=== PATIENT | male | born 1965 | race Caucasian/White ===

== ENCOUNTER 2018-02-09 12:44 | Emergency (ER) | payer OTHER ==
[~2018-02-09] VITALS: Ht 177.8 cm; Wt 82.0 kg
[2018-02-09] MEDS ORDERED: IOHEXOL 350 MG/ML 10 ML VIAL (for RAD DIAG) IVCONTRAST ONE (12:45)
[2018-02-09 12:53] VITALS: BP 149/93; PULSE 84; RESP 21; TEMP 98; O2SAT 97
[2018-02-09] MEDS ORDERED: SODIUM CHLOR 0.9% 1000 ML INJ 1,000 ML IV SCH (13:15)
[2018-02-09] MEDS ORDERED: ONDANSETRON ODT 4 MG TAB PO ONE (13:15)
[2018-02-09] MEDS ORDERED: MORPHINE SULFATE 4 MG/ML INJ IV PUSH ONE (13:15)
[2018-02-09] MEDS ORDERED: SODIUM CHLORIDE 0.9% FLUSH 10 ML FLUSH IV FLUSH PRN (13:15)
--- NOTE | 2018-02-09 13:27 | PD ---
HPI Chief Complaint: Abdominal Pain Time Seen by Provider: 12:59 Travel History International Travel<30 days: No Contact w/Intl Traveler<30days: No Traveled to known affect area: No History of Present Illness HPI 52-year-old male presents for evaluation of abdominal pain, nausea, vomiting, diarrhea. He reports that he has had abdominal pain for the past month, seems to be getting worse over the past few days. He has been having nausea and 5-6 episodes of emesis daily for the past 2 weeks and diarrhea for the past 3 days. He believes that his symptoms are secondary to hernias. He reports history of abdominal wall hernias. He has had hernia repair 5-6 times in the past. He called the [place] and was sent here for further evaluation. He reports that he has been in the process of trying to get general surgery follow-up to the [place] for repair of his abdominal wall hernias however this has been delayed for unknown reasons. Reports history of hypertension. Denies fevers, chills, dysuria. No other complaints. [facility] Past Medical History Hypertension: Yes Past Surgical History Abdominal Surgery: Yes (MULTIPLE HERNIA SX) Social History Alcohol Use: Yes (4-5 BEERS DAILY ) Tobacco Use: Yes Substance Use: No Allergies-Medications (Allergen,Severity, Reaction): Coded Allergies: No Known Allergies (Unverified , 02/09/18) Reported Meds & Prescriptions Reported Meds & Active Scripts Active Zofran (Ondansetron HCl) 4 Mg Tab 4 Mg PO Q6HR PRN Review of Systems Except as stated in HPI: all other systems reviewed are Neg Physical Exam Narrative GENERAL: Well-developed well-nourished male in no acute distress SKIN: Warm and dry. HEAD: Atraumatic. Normocephalic. EYES: Pupils equal and round. No scleral icterus. No injection or drainage. ENT: No nasal bleeding or discharge. Mucous membranes pink and moist. NECK: Trachea midline. No JVD. CARDIOVASCULAR: Regular rate and rhythm. No murmur appreciated. RESPIRATORY: No accessory muscle use. Clear to auscultation. Breath sounds equal bilaterally. GASTROINTESTINAL: Large abdominal wall scar noted. There is a palpable abdominal wall hernia in the epigastrium. There is a palpable abdominal wall hernia lateral to the umbilicus on the left side. Both of these are reducible. Some tenderness to palpation periumbilical region. No guarding. MUSCULOSKELETAL: No obvious deformities. No clubbing. No cyanosis. No edema. NEUROLOGICAL: Awake and alert. No obvious cranial nerve deficits. Motor grossly within normal limits. Normal speech. Data Data Last Documented VS Vital Signs Date Time Temp Pulse Resp B/P (MAP) Pulse Ox O2 Delivery O2 Flow Rate FiO2 02/09/18 12:53 98.0 84 21 149/93 (111) 97 Orders Orders Complete Blood Count With Diff (02/09/18 13:15) Comprehensive Metabolic Panel (02/09/18 13:15) Lipase (02/09/18 13:15) Urinalysis - C+S If Indicated (02/09/18 13:15) Ct Abd/Pel W Iv Contrast(Rout) (02/09/18 13:15) Iv Access Insert/Monitor (02/09/18 13:15) Ecg Monitoring (02/09/18 13:15) Oximetry (02/09/18 13:15) Sodium Chloride 0.9% Flush (Ns Flush) (02/09/18 13:15) Morphine Inj (Morphine Inj) (02/09/18 13:15) Sodium Chlor 0.9% 1000 Ml Inj (Ns 1000 M (02/09/18 13:15) Magnesium (Mg) (02/09/18 13:15) Ondansetron Odt (Zofran Odt) (02/09/18 13:15) Prothrombin Time / Inr (Pt) (02/09/18 13:15) Act Partial Throm Time (Ptt) (02/09/18 13:15) Oral Contrast - Adult (02/09/18 13:20) Diatrizoate Liq ( Gastroview Liq) (02/09/18 13:33) Iohexol 350 Inj (Omnipaque 350 Inj) (02/09/18 12:45) Labs Laboratory Tests Test 02/09/18 13:15 02/09/18 15:32 White Blood Count 9.5 TH/MM3 Red Blood Count 4.71 MIL/MM3 Hemoglobin 16.4 GM/DL Hematocrit 46.3 % Mean Corpuscular Volume 98.4 FL Mean Corpuscular Hemoglobin 34.9 PG Mean Corpuscular Hemoglobin Concent 35.5 % Red Cell Distribution Width 13.8 % Platelet Count 327 TH/MM3 Mean Platelet Volume 10.1 FL Neutrophils (%) (Auto) 45.1 % Lymphocytes (%) (Auto) 43.4 % Monocytes (%) (Auto) 9.5 % Eosinophils (%) (Auto) 0.8 % Basophils (%) (Auto) 1.2 % Neutrophils # (Auto) 4.3 TH/MM3 Lymphocytes # (Auto) 4.1 TH/MM3 Monocytes # (Auto) 0.9 TH/MM3 Eosinophils # (Auto) 0.1 TH/MM3 Basophils # (Auto) 0.1 TH/MM3 CBC Comment DIFF FINAL Differential Comment Prothrombin Time 11.5 SEC Prothromb Time International Ratio 1.1 RATIO Activated Partial Thromboplast Time 25.0 SEC Blood Urea Nitrogen 17 MG/DL Creatinine 0.98 MG/DL Random Glucose 130 MG/DL Total Protein 7.4 GM/DL Albumin 2.9 GM/DL Calcium Level 7.9 MG/DL Magnesium Level 2.0 MG/DL Alkaline Phosphatase 103 U/L Aspartate Amino Transf (AST/SGOT) 166 U/L Alanine Aminotransferase (ALT/SGPT) 127 U/L Total Bilirubin 0.5 MG/DL Sodium Level 139 MEQ/L Potassium Level 4.3 MEQ/L Chloride Level 107 MEQ/L Carbon Dioxide Level 24.6 MEQ/L Anion Gap 7 MEQ/L Estimat Glomerular Filtration Rate 80 ML/MIN Lipase 165 U/L MDM Medical Decision Making Medical Screen Exam Complete: Yes Emergency Medical Condition: Yes Medical Record Reviewed: Yes Differential Diagnosis Reducible hernia, strangulated hernia, incarcerated hernia, bowel obstruction, gastroenteritis, colitis, diverticulitis Narrative Course The patient was placed on ECG monitoring pulse oximetry. Plan is for lab work, urinalysis, CT abdomen pelvis with IV and oral contrast. He will be given morphine and Zofran, IV fluids. The patient was able to tolerate his oral contrast fluid with no emesis. CBC is unremarkable. CMP is reassuring. His calcium 7.9, he has mildly elevated AST and ALT. He reports that he is a daily drinker. I recommend that he follow -up with his primary care physician for hepatitis testing. CONCLUSION: Numerous midline hernias are identified as described above including one small bowel containing hernia and one transverse colon containing hernia. CT abdomen pelvis reveals 5 midline hernias but no evidence of strangulation or incarceration. On examination the palpable hernias are reducible. I provided the patient a copy of his CT report. I recommended that he follow-up with a general surgeon. He reports that [facility] is [facility]. He will be given the name of the surgeon who is on-call today if he would like to follow-up with them. I discussed signs and symptoms that would warrant returning to the emergency room. He is stable for discharge. Diagnosis Primary Impression: Recurrent abdominal hernia Additional Impressions: Abdominal hernia Abdominal wall hernia Elevated liver enzymes Referrals: Terry Pacheco MD General Surgeon Additional Instructions: Follow-up with a general surgeon such as Dr. Pacheco, call to make an appointment. Avoid anything that increases pressure and strain in her abdomen such as straining during a bowel movement, heavy lifting. Zofran for nausea. Return for any acutely new or worsening symptoms such as severe intractable abdominal pain, severe intractable nausea and vomiting, fevers. Med/Other Pt SpecificInfo: Prescription(s) given Scripts Ondansetron (Zofran) 4 Mg Tab 4 MG PO Q6HR Y for NAUSEA OR VOMITING, #20 TAB 0 Refills Prov: Angeline Chamorro MD 02/09/18 Disposition: 01 DISCHARGE HOME Condition: Stable James Dempsey February 09, 2018 13:27
[2018-02-09] MEDS ORDERED: DIATRIZOATE MEGLUM/DIATRIZOATE SOD 9 ML CUP ONE (13:33)
[2018-02-09 13:48] LABS: AUTOMATED NEUTROPHIL # 4.3 TH/MM3 (1.8-7.7); BASOPHIL # 0.1 TH/MM3 (0-0.2); BASOPHIL % 1.2 % (0.0-2.0); EOSINOPHIL # 0.1 TH/MM3 (0-0.4); EOSINOPHIL % 0.8 % (0.0-4.0); HEMATOCRIT 46.3 % (39.0-51.0); HEMOGLOBIN 16.4 GM/DL (13.0-17.0); LYMPH % 43.4 % (9.0-44.0); LYMPHOCYTE # 4.1 TH/MM3 (1.0-4.8); MEAN CELL VOLUME 98.4 FL (80.0-100.0); MEAN CORPUSCULAR HEMOGLOBIN 34.9 PG (27.0-34.0); MEAN CORPUSCULAR HGB CONC 35.5 % (32.0-36.0); MEAN PLATELET VOLUME 10.1 FL (7.0-11.0); MONO % 9.5 % (0.0-8.0); MONOCYTE # 0.9 TH/MM3 (0-0.9); NEUT % 45.1 % (16.0-70.0); PLATELET COUNT 327 TH/MM3 (150-450); RED BLOOD COUNT 4.71 MIL/MM3 (4.50-5.90); RED CELL DISTRIBUTION WIDTH 13.8 % (11.6-17.2); WHITE BLOOD COUNT 9.5 TH/MM3 (4.0-11.0)
[2018-02-09 14:00] LABS: PROTHROMBIN TIME - PATIENT 11.5 SEC (9.8-11.6)
[2018-02-09 14:03] LABS: INTERNATIONAL NORMALIZED RATIO 1.1 RATIO
[2018-02-09 14:13] LABS: ALKALINE PHOSPHATASE 103 U/L (45-117); TOTAL BILIRUBIN ADULT 0.5 MG/DL (0.2-1.0); TOTAL PROTEIN 7.4 GM/DL (6.4-8.2)
[2018-02-09 14:16] LABS: ALBUMIN 2.9 GM/DL (3.4-5.0); ALT (GPT) 127 U/L (12-78); AST (GOT) 166 U/L (15-37); BICARBONATE 24.6 MEQ/L (21.0-32.0); BLOOD UREA NITROGEN 17 MG/DL (7-18); CALCIUM 7.9 MG/DL (8.5-10.1); CHLORIDE 107 MEQ/L (98-107); CREATININE 0.98 MG/DL (0.60-1.30); GLOMERULAR FILTRATION RATE 80 ML/MIN (>89); GLUCOSE,RANDOM 130 MG/DL (74-106); SODIUM (NA) 139 MEQ/L (136-145)
--- NOTE | 2018-02-09 15:26 | RADRPT ---
EXAM DATE/TIME: 02/09/2018 14:54 [facility] COMPARISON: No previous studies available for comparison. INDICATIONS : Right sided abdominal hernia with vomiting. IV CONTRAST: 97 cc Omnipaque 350 (iohexol) IV ORAL CONTRAST: Prescribed oral contrast ingested. RADIATION DOSE: 6.54 CTDIvol (mGy) MEDICAL HISTORY : Hypertension. hernia SURGICAL HISTORY : multiple hernia surgeries ENCOUNTER: Initial ACUITY: 2 weeks PAIN SCALE: 9/10 LOCATION: Right mid abdomen TECHNIQUE: Volumetric scanning of the abdomen and pelvis was performed. Using automated exposure control and ad justment of the mA and/or kV according to patient size, radiation dose was kept as low as reasonably achievable to obtain optimal diagnostic quality images. DICOM format image data is available electro nically for review and comparison. FINDINGS: The lung bases are clear. Posterior brody and transpedicular screw fixation at L4-5 identified. Co ronary artery calcification is present. Atherosclerotic calcification of the aorta and iliac vessels are noted. Urinary bladder unremarkable. The prostate is prominent measuring 4.9 x 5.2 cm in AP trans verse dimension. There is severe diverticulosis of the sigmoid colon and descending colon without nestor dence of acute diverticulitis. Transverse colonic diverticulosis is also noted. There is a fat contai carine supraumbilical ventral hernia anterior to the greater curvature of the stomach measuring 2 cm in transverse dimension, hernia sac measuring 4.9 x 2.1 cm in transverse and AP dimension. There is als o a midline ventral hernia containing fat just inferior to this measuring 2.8 cm in transverse dimens ion at the abdominal wall in the hernia sac measuring 5.3 x 2.9 cm in transverse and AP dimension. Th ere is a hernia at the level of the umbilicus measuring 3.2 cm in transverse dimension. The hernia sa c contains small bowel and small bowel mesentery measuring 9.9 x 3.8 cm in transverse and AP dimensio n on image 53. A supraumbilical ventral hernia defect measuring 2 cm in transverse dimension and ryan ia sac 4.9 cm in transverse dimension, containing fat. Just above this is a midline ventral hernia co ntaining a loop of mid transverse colon, the abdominal wall defect measures 5.2 cm across. Appendix n ormal. Evidence of previous surgery to the terminal ileum. No adenopathy or aneurysm. CONCLUSION: Numerous midline hernias are identified as described above including one small bowel containing herni a and one transverse colon containing hernia. Demarco Mann MD on February 09, 2018 at 15:20 Board Certified Radiologist. This report was verified electronically.
[2018-02-09] MEDS ORDERED: ZOFR4TAB PO (15:38)
[2018-02-09 15:50] LABS: BILIRUBIN, URINE NEG (NEG); BLOOD, URINE NEG (NEG); GLUCOSE,URINE NEG (NEG); KETONE, URINE NEG (NEG); NITRITE,URINE NEG (NEG); URINE COLOR YELLOW (YELLW/STRAW); URINE LEUKOCYTE ESTERASE NEG (NEG)
--- NOTE | 2018-02-11 16:22 | PD ---
Physical Exam Narrative I, Dr. Chamorro, have reviewed the advance practice practitioner's documentation and am in agreement, met with the patient face to face, made the diagnosis, and the medical decision making was done by me. *My assessment and Findings: Patient presents to the emergency department complaining of abdominal pain 1 month, nausea and vomiting 2 weeks, and diarrhea. States that he has been attempting to get his hernias repaired [facility] the [facility], but for unknown reasons is running into difficulty. Presented to the emergency department afebrile, slightly hypertensive at 149/93 with remaining vital signs stable. On exam he has multiple reducible hernias. Workup showed increased LFTs and CT scan was positive for diverticulosis without evidence of diverticulitis and multiple hernias. He was given fluids, Zofran, and morphine while in the emergency department. He was able to tolerate p.o. and was advised to follow-up with his surgeon at the [facility], as well as given return ER precautions. He was also discharged with Zofran as needed. Data Data Last Documented VS Vital Signs Date Time Temp Pulse Resp B/P (MAP) Pulse Ox O2 Delivery O2 Flow Rate FiO2 02/09/18 14:25 Room Air 02/09/18 12:53 98.0 84 21 149/93 (111) 97 Orders Orders Complete Blood Count With Diff (02/09/18 13:15) Comprehensive Metabolic Panel (02/09/18 13:15) Lipase (02/09/18 13:15) Urinalysis - C+S If Indicated (02/09/18 13:15) Ct Abd/Pel W Iv Contrast(Rout) (02/09/18 13:15) Iv Access Insert/Monitor (02/09/18 13:15) Ecg Monitoring (02/09/18 13:15) Oximetry (02/09/18 13:15) Sodium Chloride 0.9% Flush (Ns Flush) (02/09/18 13:15) Morphine Inj (Morphine Inj) (02/09/18 13:15) Sodium Chlor 0.9% 1000 Ml Inj (Ns 1000 M (02/09/18 13:15) Magnesium (Mg) (02/09/18 13:15) Ondansetron Odt (Zofran Odt) (02/09/18 13:15) Prothrombin Time / Inr (Pt) (02/09/18 13:15) Act Partial Throm Time (Ptt) (02/09/18 13:15) Oral Contrast - Adult (02/09/18 13:20) Diatrizoate Liq ( Gastroluca Liq) (02/09/18 13:33) Iohexol 350 Inj (Omnipaque 350 Inj) (02/09/18 12:45) Ed Discharge Order (02/09/18 15:54) Labs Laboratory Tests Test 02/09/18 13:15 02/09/18 15:32 White Blood Count 9.5 TH/MM3 Red Blood Count 4.71 MIL/MM3 Hemoglobin 16.4 GM/DL Hematocrit 46.3 % Mean Corpuscular Volume 98.4 FL Mean Corpuscular Hemoglobin 34.9 PG Mean Corpuscular Hemoglobin Concent 35.5 % Red Cell Distribution Width 13.8 % Platelet Count 327 TH/MM3 Mean Platelet Volume 10.1 FL Neutrophils (%) (Auto) 45.1 % Lymphocytes (%) (Auto) 43.4 % Monocytes (%) (Auto) 9.5 % Eosinophils (%) (Auto) 0.8 % Basophils (%) (Auto) 1.2 % Neutrophils # (Auto) 4.3 TH/MM3 Lymphocytes # (Auto) 4.1 TH/MM3 Monocytes # (Auto) 0.9 TH/MM3 Eosinophils # (Auto) 0.1 TH/MM3 Basophils # (Auto) 0.1 TH/MM3 CBC Comment DIFF FINAL Differential Comment Prothrombin Time 11.5 SEC Prothromb Time International Ratio 1.1 RATIO Activated Partial Thromboplast Time 25.0 SEC Blood Urea Nitrogen 17 MG/DL Creatinine 0.98 MG/DL Random Glucose 130 MG/DL Total Protein 7.4 GM/DL Albumin 2.9 GM/DL Calcium Level 7.9 MG/DL Magnesium Level 2.0 MG/DL Alkaline Phosphatase 103 U/L Aspartate Amino Transf (AST/SGOT) 166 U/L Alanine Aminotransferase (ALT/SGPT) 127 U/L Total Bilirubin 0.5 MG/DL Sodium Level 139 MEQ/L Potassium Level 4.3 MEQ/L Chloride Level 107 MEQ/L Carbon Dioxide Level 24.6 MEQ/L Anion Gap 7 MEQ/L Estimat Glomerular Filtration Rate 80 ML/MIN Lipase 165 U/L Urine Color YELLOW Urine Turbidity CLEAR Urine pH 6.0 Urine Specific [place] 1.049 Urine Protein NEG mg/dL Urine Glucose (UA) NEG mg/dL Urine Ketones NEG mg/dL Urine Occult Blood NEG Urine Nitrite NEG Urine Bilirubin NEG Urine Urobilinogen LESS THAN 2.0 MG/DL Urine Leukocyte Esterase NEG Urine RBC 1 /hpf Urine WBC 5 /hpf Microscopic Urinalysis Comment CULT NOT INDICATED MDM Supervised Visit with [facility]IMUS: Yes Diagnosis Primary Impression: Elevated liver enzymes Additional Impressions: Abdominal wall hernia Abdominal hernia Qualified Codes: K45.8 - Other specified abdominal hernia without obstruction or gangrene Referrals: Terry Pacheco MD General Surgeon Patient Instructions: General Instructions, Ondansetron (By mouth, Into the mouth) Departure Forms: Tests/Procedures Additional Instruction: Follow-up with a general surgeon such as Dr. Pacheco, call to make an appointment. Avoid anything that increases pressure and strain in her abdomen such as straining during a bowel movement, heavy lifting. Zofran for nausea. Return for any acutely new or worsening symptoms such as severe intractable abdominal pain, severe intractable nausea and vomiting, fevers. Scripts Ondansetron (Zofran) 4 Mg Tab 4 MG PO Q6HR Y for NAUSEA OR VOMITING, #20 TAB 0 Refills Prov: Angeline Chamorro MD 02/09/18 Disposition: DISCHARGE HOME Condition: Stable Angeline Chamorro MD February 11, 2018 16:22
== END 2018-02-09 16:48 | disposition home or self-care (01) ==
LOC: NEPE 12:44
DX: K45.8 Other specified abdominal hernia without obstruction or gangrene (principal); K43.9 Ventral hernia without obstruction or gangrene; R74.8 Abnormal levels of other serum enzymes; I10 Essential (primary) hypertension; F10.20 Alcohol dependence, uncomplicated; Z72.0 Tobacco use
CPT/HCPCS: 74177; 80053; 81001; 83690; 83735; 85025; 85610; 85730; 96361; 96374; 99284; J2270; J7030; Q9963; Q9967

== ENCOUNTER 2018-05-30 23:36 | Inpatient (IN) ==
[2018-05-31] MEDS ORDERED: Sod Chloride 0.9% Inj 1,000 ML IV.SIG ONE ×2 (00:43→01:35)
[2018-05-31] MEDS ORDERED: Morphine Inj 4 MG/ML Vial IV.PUSH ONE (00:43)
--- NOTE | 2018-05-31 01:19 | XR ---
EXAM DATE: 05/31/2018 12:57 AM EDT AGE/SEX: 52 years / Male INDICATIONS: Cough. CLINICAL DATA: This is the patient's initial encounter. Patient reports that signs and symptoms have been present for 1 day and indicates a pain score of 8/10. MEDICAL/SURGICAL HISTORY: . Myocardial infarction. . Hernia repair. Stents. COMPARISON: No prior exams available for comparison. FINDINGS: Portable AP view of the chest demonstrates a normal-sized cardiac silhouette. No effusion, consolidat ion, or pneumothorax is identified. The bones and soft tissues demonstrate no acute finding. EKG line s overlie the patient. CONCLUSION: No acute cardiopulmonary abnormality is identified. Electronically signed by: Jm Powell MD 05/31/2018 1:18 AM EDT
[2018-05-31 01:28] LABS: Baso # (Auto) 0.1 th/mm3 (0.0-0.2); Eos % (Auto) 0.3 % (0.0-4.0); Hematocrit 44.2 % (39.0-51.0); Hemoglobin 15.8 gm/dL (13.0-17.0); Lymph % (Auto) 20.9 % (9.0-44.0); Mean Corpuscular HGB Conc 35.8 % (32.0-36.0); Mean Corpuscular Volume 103.3 fL (80.0-100.0); Mean Platelet Volume 10.6 fL (7.0-11.0); Mono # (Auto) 1.1 th/mm3 (0.0-0.9); Mono % (Auto) 7.4 % (0.0-8.0); Neut # (Auto) 10.2 th/mm3 (1.8-7.7); Neut % (Auto) 70.4 % (16.0-70.0); Platelet Count 373 th/mm3 (150-450); Red Blood Count 4.28 mil/mm3 (4.50-5.90); White Blood Count 14.6 th/mm3 (4.0-11.0)
[2018-05-31 01:42] LABS: Activated Partial Thrombo Time 25.9 sec (24.3-30.1); INR 1.1 Ratio; Prothrombin Time 11.5 sec (9.8-11.6)
[2018-05-31 01:52] LABS: Alanine Aminotransferase 109 U/L (12-78); Albumin 2.6 g/dL (3.4-5.0); Alkaline Phosphatase 219 U/L (45-117); Anion Gap 22 meq/L (5-15); Blood Urea Nitrogen 19 mg/dL (7-18); Calcium 7.6 mg/dL (8.5-10.1); Carbon Dioxide 19.5 meq/L (21.0-32.0); Chloride 93 meq/L (98-107); Creatine Kinase 208 U/L (39-308); Glomerular Filtration Rate 70 mL/min (>89); Glucose,Random 198 mg/dL (74-106); Lipase 821 U/L (73-393); Potassium 4.1 meq/L (3.5-5.1); Total Protein 8.4 g/dL (6.4-8.2); Troponin I 0.06 ng/mL (0.02-0.05)
[2018-05-31 02:01] LABS: Sodium 134 meq/L (136-145)
[2018-05-31 02:02] LABS: Aspartate Aminotransferase 125 U/L (15-37)
[2018-05-31 02:07] LABS: Bilirubin,Urine Negative (Negative); Clarity,Urine Hazy (Clear); Color,Urine Amber (Yellw/Straw); Glucose,Urine (UA) 50 mg/dL (Negative); Hyaline Casts,Urine 45 /lpf (0-3); Leukocyte Esterase,Urine Negative (Negative); Mucus,Urine Many /lpf (Occasional); Nitrite,Urine Negative (Negative); Specific Gravity,Urine 1.032 (1.002-1.035); Squamous Epithelial Cell,Urine <1 /hpf (0-5); Urobilinogen,Urine 4 or Greater mg/dL (Less than 2)
--- NOTE | 2018-05-31 04:22 | ED ---
HPI General Chief complaint: Abdominal Pain Stated complaint: Medical complaint Time Seen by Provider: 05/30/18 23:58 Limitations: no limitations History of Present Illness HPI narrative: The patient is a 52 year old male who presents to the [facility] emergency department with a history of nausea, vomiting that he reports is been intractable for the last 48 hours. He reports that he has not been able to keep anything down. He reports a recent history of having over the last few months abdominal pain that he thought was related to his ventral abdominal hernia. He reports that he did follow-up with the surgeon, Dr. Grajeda, however as a pain was at times located in the right upper quadrant, the surgeon requested that he obtain an ultrasound of the gallbladder. The patient reports that he has to obtain the ultrasound of the gallbladder through the [facility] and has not been able to do it yet. His next follow -up appointment with the surgeon is in 6 weeks. The patient reports intermittently having diarrhea for the last few months, however his last episode of diarrhea was yesterday. He reports that he had diarrhea 4-5 times yesterday. He has not moved his bowels today. The patient reports that he has had at least 15 episodes of vomiting today. He reports that he has had decreased urine output with darkening of the urine. The patient reports that the abdominal pain is in the right upper quadrant of the abdomen today. He reports that the pain comes and goes. He reports that the pain is a cramping sensation. He denies any alleviating or aggravating factors. On review of systems otherwise, the patient denies having any known recent fevers, cough, congestion, neck pain, chest pain, shortness of breath, dysuria, urinary urgency , or neurologic symptoms. The patient reports having generalized muscle cramping. Related Data Home Medications Medication Instructions Recorded Confirmed ondansetron [Zofran ODT] 4 mg PO Q6-8H PRN 05/30/18 05/30/18 Allergies Allergy/AdvReac Type Severity Reaction Status Date / Time No Known Allergies Allergy Unverified 02/09/18 13:12 Review of Systems ROS: all other systems reviewed are negative [facility] Medical History Medical History Myocardial infarction (Acute) Social History Social History Substance History: Active Abuse Smoking Status: Current every day smoker Tobacco Type: Cigarettes How Often Do You Have a Drink Containing Alcohol: 2 to 3 times a week Recent Travel in [facility] within the Last 8 Weeks: No Recent Out of Country Travel within the Last 8 Weeks: No Substance Abuse Detail Marijuana: Substance Use Status: Active Immunization History Tetanus Immunization: <5 Years Hx Influenza Vaccine This Season: No Exam Narrative Exam Narrative: General: The patient is a well-developed well-nourished male, uncomfortable appearing on examination related to nausea and abdominal pain, otherwise in no acute distress. Head and Neck exam: Head is normocephalic atraumatic. Eyes: EOMI, pupils are equal round and reactive to light. Nose: Midline septum with pink mucous membranes Mouth: Dentition unremarkable. Moist mucus membranes. Posterior oropharynx is not erythematous. No tonsillar hypertrophy. Uvula midline. Airway patent. Neck: No palpable lymphadenopathy. No nuchal rigidity. No thyromegaly. Cardiovascular: Regular rate and rhythm without murmurs, gallops, or rubs. No pulse deficit to the extremities on simultaneous auscultation and palpation of his radial artery. Lungs: Clear to auscultation bilaterally. No wheezes, rhonchi, or rales. Abdomen: Soft, with tenderness on palpation of the right upper quadrant and midepigastric area, palpable ventral abdominal hernia noted on examination. This is palpably reducible. No guarding, rebound, or rigidity. Normal bowel sounds are audible. Negative Pearson's sign. Extremities: No clubbing, cyanosis, or edema. 2+ pulses in all 4 extremities. Back: No spinous process tenderness to palpation. No costovertebral angle tenderness to palpation. Neurologic Exam: Grossly nonfocal. Skin Exam: No rash noted. Intact skin that is warm and dry. Course Reevaluation(s) Reevaluation #1: The patient on reevaluation and reported feeling improved regarding his lightheaded sensation. The patient continues to have nausea and midepigastric right upper quadrant pain. Consultations Consultation #1: The patient's case including history, pertinent physical examination findings, and laboratory studies were discussed with Dr. Booth. It was agreed that the patient would be admitted to the hospitalist service. Initial Documented Vital Signs Temperature 97.5 F L 05/30/18 23:38 Pulse Rate 123 H 05/30/18 23:38 Respiratory Rate 16 05/30/18 23:38 Blood Pressure 170/107 H 05/30/18 23:38 Pulse Oximetry 97 05/30/18 23:38 Last Documented Vital Signs Temperature 97.5 F L 05/30/18 23:38 Pulse Rate 88 05/31/18 03:36 Respiratory Rate 18 05/31/18 03:36 Blood Pressure 161/83 H 05/31/18 03:36 Pulse Oximetry 96 05/31/18 03:36 Medical Decision Making MDM Narrative Medical decision making narrative: During the course of the patient's emergency department visit, the patient's history, examination, and differential diagnosis were reviewed with the patient. The patient was placed on a residential monitor with oximetry and frequent blood pressure monitoring. The patient had IV access obtained and blood work sent for analysis. The patient was initially provided normal saline IV fluids, Zofran 4 mg IV for nausea, morphine 4 mg IV for pain. The patient's diagnostic evaluation is remarkable for leukocytosis at 14.6 with a left shift-neutrophils 70.4, platelets within normal limits, hemoglobin is 15.8, PT PTT unremarkable, chemistry is remarkable for a total bilirubin of 1.5 , sodium is 134, glucose 198, lipase elevated at 821, lactic acid 2.1, chloride 93, CO2 19.5 with an anion gap of 22, AST 125, ALT 109. The patient's chest x- ray showed no acute cardiopulmonary disease, CT scan of the abdomen and pelvis was remarkable for inflammation around the pancreas consistent with pancreatitis. The patient's results were discussed with the patient, including the plan of care. I explained that further testing and/ or monitoring is indicated based on the patient's history, examination, and/ or laboratory findings. Therefore, I recommended admission for additional evaluation. The patient expressed understanding and was agreeable with this plan. The patient was admitted to the hospital in stable condition and sent to a bed under the care of the [facility] service. The patient's results were discussed with the patient, including the plan of care. I explained that further testing and/ or monitoring is indicated based on the patient's history, examination, and/ or laboratory findings. Therefore, I recommended admission for additional evaluation. The patient expressed understanding and was agreeable with this plan. The patient was admitted to the hospital in stable condition and sent to a bed under the care of [facility] service. Medical Screen Exam Complete: Yes Emergency Medical Condition: Yes Differential Diagnosis Differential Diagnosis: Hernia incarceration, versus other bowel obstruction, versus colitis, versus diverticulitis, versus biliary colic, versus acute cholecystitis, versus pancreatitis, versus dehydration, versus electrolyte derangements Medical Records Medical records reviewed: Yes I reviewed the patient's medical records. Lab Data Lab results reviewed: Yes I reviewed the patient's lab results. Result diagrams: 05/31/18 00:50 05/31/18 00:50 Lab Results 05/31/18 05/31/18 05/31/18 Range/Units 00:50 00:50 00:50 WBC 14.6 H (4.0-11.0) th/mm3 RBC 4.28 L (4.50-5.90) mil/mm3 Hgb 15.8 (13.0-17.0) gm/dL Hct 44.2 (39.0-51.0) % MCV 103.3 H (80.0-100.0) fL MCH 37.0 H (27.0-34.0) pg MCHC 35.8 (32.0-36.0) % RDW 15.0 (11.6-17.2) % Plt Count 373 (150-450) th/mm3 MPV 10.6 (7.0-11.0) fL Prelim Diff (Auto) Slide review pending Neut % (Auto) 70.4 H (16.0-70.0) % Lymph % (Auto) 20.9 (9.0-44.0) % Tompkins % (Auto) 7.4 (0.0-8.0) % Eos % (Auto) 0.3 (0.0-4.0) % Baso % (Auto) 1.0 (0.0-2.0) % Neut # (Auto) 10.2 H (1.8-7.7) th/mm3 Lymph # (Auto) 3.0 (1.0-4.8) th/mm3 Tompkins # (Auto) 1.1 H (0.0-0.9) th/mm3 Eos # (Auto) 0.0 (0.0-0.4) th/mm3 Baso # (Auto) 0.1 (0.0-0.2) th/mm3 WBC Differential . Diff Scan Auto diff confirmed Differential Comment . PT 11.5 (9.8-11.6) sec INR 1.1 Ratio APTT 25.9 (24.3-30.1) sec Sodium 134 L (136-145) meq/L Potassium 4.1 (3.5-5.1) meq/L Chloride 93 L (98-107) meq/L Carbon Dioxide 19.5 L (21.0-32.0) meq/L Anion Gap 22 H (5-15) meq/L BUN 19 H (7-18) mg/dL Creatinine 1.10 (0.60-1.30) mg/dL Estimated GFR 70 L (>89) mL/min Random Glucose 198 H (74-106) mg/dL Lactic Acid (0.4-2.0) mmol/L Calcium 7.6 L (8.5-10.1) mg/dL Total Bilirubin 1.5 H (0.2-1.0) mg/dL AST 125 H (15-37) U/L ALT 109 H (12-78) U/L Alkaline Phosphatase 219 H (45-117) U/L Total Creatine Kinase 208 (39-308) U/L CK-MB (CK-2) 1.0 (0.5-3.6) ng/mL Troponin I 0.06 H (0.02-0.05) ng/mL Total Protein 8.4 H (6.4-8.2) g/dL Albumin 2.6 L (3.4-5.0) g/dL Lipase 821 H (73-393) U/L Urine Color (Yellw/Straw) Urine Clarity (Clear) Urine pH (5.0-8.5) Ur Specific Garrett (1.002-1.035) Urine Protein (Neg-Trace) mg/dL Urine Glucose (UA) (Negative) mg/dL Urine Ketones (Negative) mg/dL Urine Occult Blood (Negative) Urine Nitrate (Negative) Urine Bilirubin (Negative) Urine Urobilinogen (Less than 2) mg/dL Ur Leukocyte Esterase (Negative) Urine RBC (0-3) /hpf Urine WBC (0-5) /hpf Ur Squamous Epith Cells (0-5) /hpf Hyaline Casts (0-3) /lpf Granular Casts (None) /lpf Urine Mucus (Occasional) /lpf Micro UA Comment Ur Microscopic Review Urine Culture Comments 05/31/18 05/31/18 Range/Units 00:50 01:40 WBC (4.0-11.0) th/mm3 RBC (4.50-5.90) mil/mm3 Hgb (13.0-17.0) gm/dL Hct (39.0-51.0) % MCV (80.0-100.0) fL MCH (27.0-34.0) pg MCHC (32.0-36.0) % RDW (11.6-17.2) % Plt Count (150-450) th/mm3 MPV (7.0-11.0) fL Prelim Diff (Auto) Neut % (Auto) (16.0-70.0) % Lymph % (Auto) (9.0-44.0) % Tompkins % (Auto) (0.0-8.0) % Eos % (Auto) (0.0-4.0) % Baso % (Auto) (0.0-2.0) % Neut # (Auto) (1.8-7.7) th/mm3 Lymph # (Auto) (1.0-4.8) th/mm3 Tompkins # (Auto) (0.0-0.9) th/mm3 Eos # (Auto) (0.0-0.4) th/mm3 Baso # (Auto) (0.0-0.2) th/mm3 WBC Differential Diff Scan Differential Comment PT (9.8-11.6) sec INR Ratio APTT (24.3-30.1) sec Sodium (136-145) meq/L Potassium (3.5-5.1) meq/L Chloride (98-107) meq/L Carbon Dioxide (21.0-32.0) meq/L Anion Gap (5-15) meq/L BUN (7-18) mg/dL Creatinine (0.60-1.30) mg/dL Estimated GFR (>89) mL/min Random Glucose (74-106) mg/dL Lactic Acid 2.1 H (0.4-2.0) mmol/L Calcium (8.5-10.1) mg/dL Total Bilirubin (0.2-1.0) mg/dL AST (15-37) U/L ALT (12-78) U/L Alkaline Phosphatase (45-117) U/L Total Creatine Kinase (39-308) U/L CK-MB (CK-2) (0.5-3.6) ng/mL Troponin I (0.02-0.05) ng/mL Total Protein (6.4-8.2) g/dL Albumin (3.4-5.0) g/dL Lipase (73-393) U/L Urine Color Dory (Yellw/Straw) Urine Clarity Hazy H (Clear) Urine pH 5.0 (5.0-8.5) Ur Specific Garrett 1.032 (1.002-1.035) Urine Protein 30 H (Neg-Trace) mg/dL Urine Glucose (UA) 50 (Negative) mg/dL Urine Ketones Trace H (Negative) mg/dL Urine Occult Blood Negative (Negative) Urine Nitrate Negative (Negative) Urine Bilirubin Negative (Negative) Urine Urobilinogen 4 or greater (Less than 2) mg/dL Ur Leukocyte Esterase Negative (Negative) Urine RBC Less than 1 (0-3) /hpf Urine WBC 3 (0-5) /hpf Ur Squamous Epith Cells <1 (0-5) /hpf Hyaline Casts 45 (0-3) /lpf Granular Casts 8 (None) /lpf Urine Mucus Many H (Occasional) /lpf Micro UA Comment Culture not ind Ur Microscopic Review Not Reportable Urine Culture Comments Culture not ind Imaging Data Radiologist's impression: Chest X-Ray 05/31/18 00:43 CONCLUSION: No acute cardiopulmonary abnormality is identified. Abdomen/Pelvis CT 05/31/18 04:37 CONCLUSION: 1. Mild peripancreatic and retroperitoneal edema suggesting acute pancreatitis. No pancreatitis associated complications are present. 2. There are at least 3 anterior abdominal wall hernias, as above, containing fat, mid transverse colon, and small bowel. There are no findings to indicate that these hernias are causing obstruction. These hernias appear similar to the prior examination. 3. The liver demonstrates features suggesting steatosis and possible cirrhosis. 4. Stable but nonspecific 1.7 cm left adrenal gland mass. It does not meet criteria for an adenoma on this study or on the prior examination. Suggest attention to this at follow-up imaging and consider elective adrenal protocol CT with and without intravenous contrast. 5. 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 Discharge Plan Discharge Disposition Patient Disposition: 30 Still Patient Discharge Details Diagnosis: Acute pancreatitis, Intractable nausea and vomiting, Acute dehydration Physicians Team ED Provider: Francoise Toribio Primary Care Provider: [facility] Attending Provider: Danny Moses Discharge Interventions Interventions: Vital Signs Last Done: 05/31/18 03:36 Status ED Status: Admitted Observation Patient
[2018-05-31] MEDS: Sod Chloride 0.9% Inj 1,000 ML IV.CONT SCH ×3 (05:43→20:16)
--- NOTE | 2018-05-31 05:50 | CT ---
EXAM DATE: 05/31/2018 4:51 AM EDT AGE/SEX: 52 years / Male INDICATIONS: Abdomen pain and vomiting. CLINICAL DATA: This is the patient's initial encounter. Patient reports that signs and symptoms have been present for 1 day and indicates a pain score of 7/10. MEDICAL/SURGICAL HISTORY: . Hernia Fusion, lumbar. ORAL CONTRAST: No oral contrast ingested. RADIATION DOSE: 8.9 CTDI (mGy) COMPARISON: [facility] [place] ABDOMEN & PELVIS W CONTRAST, 02/09/2018. . TECHNIQUE: Multiple contiguous axial images were obtained through the abdomen and pelvis following b olus infusion of 75 ml Omnipaque 350 (iohexol) nonionic water-soluble contrast as a single exam dos e. No oral contrast ingested. Using automated exposure control and adjustment of the mA and/or kV ac cording to patient size, radiation dose was kept as low as reasonably achievable to obtain optimal di agnostic quality images. DICOM format image data is available electronically for review and comparis on. FINDINGS: Lower chest: No acute abnormality is identified. There is stable abnormal fat density and myocardial thickening at the left ventricular apex. Hepatobiliary: Liver density suggest steatosis and there is a questionable mildly nodular liver conto ur. No focal liver lesion is identified. Hepatic vasculature is within normal limits. No calcified ga llstones are present. Kidneys: No hydronephrosis, stone, or mass. There is an incidental 8 mm low-density lesion in the lef t mid kidney that is too small to characterize. Adrenal Glands: A right adrenal gland is atrophic and left adrenal gland contains a nodule/mass measu ring 1.7 cm. Hounsfield measurements are 58. This nodule is stable. Spleen: Spleen is absent. Pancreas: There is peripancreatic edema. No pancreatic necrosis is present. Main duct is not dilated. Vascular: The aorta is nonaneurysmal. There is severe atherosclerotic disease. Bowel/Mesentery: A small hiatal hernia is present. Small bowel demonstrates no acute finding. There i s edema adjacent to the second and third portion of the duodenum. A portion of the small intestines e xtends into an anterior abdominal wall hernia located just the left of midline. There are no signs of obstruction. Moderate sigmoid diverticulosis is present. Multiple bowel staple lines are visualized related to prior surgery with reanastomosis. No mesenteric abnormality is identified. No free air or free fluid is seen. Abdominal Wall: There are 3 anterior abdominal wall hernias along the midline superior to the umbilic us. The superiormost contains fat, the next more inferior hernia contains a short segment of the mid transverse colon without signs of obstruction, and the most inferior contains a segment of nonobstruc mario and non thickened small bowel. This is similar to the prior study. Retroperitoneum: No lymphadenopathy. Bladder: No wall thickening or mass. Reproductive: Within normal limits. Inguinal: No lymphadenopathy or hernia. Musculoskeletal: No acute osseous abnormality is identified. There has been prior laminectomy and pos terior fusion with bilateral pedicular screws at L4-L5. CONCLUSION: 1. Mild peripancreatic and retroperitoneal edema suggesting acute pancreatitis. No pancreatitis asso ciated complications are present. 2. There are at least 3 anterior abdominal wall hernias, as above, containing fat, mid transverse co lillian, and small bowel. There are no findings to indicate that these hernias are causing obstruction. T hese hernias appear similar to the prior examination. 3. The liver demonstrates features suggesting steatosis and possible cirrhosis. 4. Stable but nonspecific 1.7 cm left adrenal gland mass. It does not meet criteria for an adenoma o n this study or on the prior examination. Suggest attention to this at follow-up imaging and consider elective adrenal protocol CT with and without intravenous contrast. 5. 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 Electronically signed by: Jm Powell MD 05/31/2018 5:49 AM EDT
--- NOTE | 2018-05-31 11:52 | P.HPIM ---
History of Present Illness Primary Care Physician: [facility] Chief Complaint: Abdominal pain, vomiting History of Present Illness: This is a 52-year-old male with history of coronary artery disease status post [place] 10 years ago presenting to the emergency department with nausea, vomiting, intractable for the last 3 days associated with aching right upper and left upper quadrant abdominal pain especially with coughing and vomiting. He also has a chronic diarrhea for 3 months which he thought is secondary to ventral abdominal hernia. Diarrhea is nonbloody, nonmucoid. No recent antibiotic use. He denies any fever, chills, weight loss, chest pain, shortness of breath. Of note, he follows with Dr. Vidales for his abdominal hernia, he is supposed to do an ultrasound of the gallbladder. Last bowel movement was a day ago. He has also noticed decreased urine output from intractable vomiting hence he decided to come to the emergency department. Of note, he drinks alcohol every day, last drink was 2 days ago. FHx: No h/o GB in the family Review of Systems All other pertinent systems were reviewed and are negative. [facility] - History History Provided By: Patient - Medical History Medical History: Medical History (Last Reviewed 05/31/18 @ 04:19 by Francoise Toribio MD) Myocardial infarction - Surgical History Surgical History: Surgical History (Last Updated 05/31/18 @ 11:52 by Danny Moses MD) History of herniorrhaphy S/P gastric surgery - Tobacco History Second Hand Smoke Exposure: No Tobacco Use In Past 30 Days: Yes Smoking Status: Current every day smoker Tobacco Type: Cigarettes Packs Per Day: 1 - Alcohol History How Often Do You Have a Drink Containing Alcohol: 2 to 3 times a week - Substance Use History Substance History: Active Abuse - Substance Use Type Marijuana Status: Active Route Used: Inhalation Frequency: ONCE A MONTH Last Used: 04/11/2018 Reason for Use: Sleep - Travel History Recent Travel in the [place] Within the Last 8 Weeks: No Recent Travel Out of the Country Within the Last 8 Weeks: No - Immunization History Tetanus Immunization: <5 Years Hx Influenza Vaccine This Season: No Medications and Allergies Active Medications: Active Medications Sodium Chloride (Ns Inj) 1,000 mls @ 100 mls/hr IV.CONT .Q10H [facility] Last Admin: 05/31/18 05:43 Dose: 100 mls/hr Ondansetron HCl (Zofran Inj) 4 mg IV.PUSH Q6H PRN PRN Reason: NAUSEA OR VOMITING Last Admin: 05/31/18 09:57 Dose: 4 mg Sodium Chloride (Ns Flush) 2 ml IV.FLUSH PRN PRN PRN Reason: FLUSH AFTER USING IV ACCESS Allergies Allergy/AdvReac Type Severity Reaction Status Date / Time No Known Allergies Allergy Unverified 02/09/18 13:12 Home Medications Medication Instructions Recorded Confirmed Type ondansetron [Zofran ODT] 4 mg PO Q6-8H PRN 05/30/18 05/30/18 History Exam Vital signs: Vital Signs 05/30/18 23:38 05/30/18 23:52 05/31/18 00:43 Temperature 97.5 F L Pulse Rate 123 H 116 H Respiratory Rate 16 22 Blood Pressure 170/107 H 162/101 H Pulse Oximetry 97 97 97 05/31/18 03:36 05/31/18 08:00 Temperature 98.0 F Pulse Rate 88 76 Respiratory Rate 18 16 Blood Pressure 161/83 H 161/89 H Pulse Oximetry 96 95 Intake & Output 05/30/18 05/31/18 05/31/18 18:59 06:59 18:59 Intake Total 1999 Balance 1999 Weight 81 kg 81.647 kg Intake: IV 1999 NS Inj 1,000 ML @ Wide Open IV. 1999 SIG BOLUS ONE Rx#:[id number] Other: Weight On Admission 81.647 kg Narrative: GENERAL: Not in acute distress, well-nourished. HEAD: Atraumatic. Normocephalic. EYES: PERRL, full EOMs, no jaundice, nonicteric, pink conjunctivae without injection, moist mucosa ENT: Nose without bleeding, purulent drainage. NECK: Trachea midline, no mass, no obvious thyromegaly. CARDIOVASCULAR: Regular rate and rhythm without murmurs, gallops, or rubs. RESPIRATORY: Clear to auscultation with normal respiratory effort. Breath sounds equal bilaterally. No use of accessory muscles of respiration. GASTROINTESTINAL: Abdomen soft, obese, normal bowel sounds, mild tenderness both right upper quadrant and left lower quadrant on superficial palpation, tenderness of the epigastric area on deep palpation. MUSCULOSKELETAL: Extremities without clubbing, cyanosis, or edema. INTEGUMENTARY: Warm and dry, no rash of generalized distribution. NEUROLOGICAL: Awake, alert, oriented 3. No obvious cranial nerve deficits. Moves all 4 extremities, muscle strength testing 5 over 5. Motor and sensory grossly within normal limits. .Supple neck, no meningeal signs. Grossly negative cerebellar examination. No focal neurologic deficits. Results - Labs CBC & Chem 7: 05/31/18 00:50 05/31/18 00:50 Labs: Short CBC 05/31/18 Range/Units 00:50 WBC 14.6 H (4.0-11.0) th/mm3 Hgb 15.8 (13.0-17.0) gm/dL Hct 44.2 (39.0-51.0) % Plt Count 373 (150-450) th/mm3 BMP 05/31/18 00:50 Sodium 134 L Potassium 4.1 Chloride 93 L Carbon Dioxide 19.5 L BUN 19 H Creatinine 1.10 Calcium 7.6 L Cardiac Enzymes 05/31/18 Range/Units 00:50 Total Creatine Kinase 208 (39-308) U/L CK-MB (CK-2) 1.0 (0.5-3.6) ng/mL Troponin I 0.06 H (0.02-0.05) ng/mL Liver Function 05/31/18 Range/Units 00:50 Total Bilirubin 1.5 H (0.2-1.0) mg/dL AST 125 H (15-37) U/L ALT 109 H (12-78) U/L Alkaline Phosphatase 219 H (45-117) U/L Albumin 2.6 L (3.4-5.0) g/dL Urine 05/31/18 Range/Units 01:40 Urine Color Dory (Yellw/Straw) Urine Clarity Hazy H (Clear) Urine pH 5.0 (5.0-8.5) Ur Specific Bureau 1.032 (1.002-1.035) Urine Protein 30 H (Neg-Trace) mg/dL Urine Glucose (UA) 50 (Negative) mg/dL - Imaging Impressions Chest X-Ray 05/31/18 00:43 CONCLUSION: No acute cardiopulmonary abnormality is identified. Abdomen/Pelvis CT 05/31/18 04:37 CONCLUSION: 1. Mild peripancreatic and retroperitoneal edema suggesting acute pancreatitis. No pancreatitis associated complications are present. 2. There are at least 3 anterior abdominal wall hernias, as above, containing fat, mid transverse colon, and small bowel. There are no findings to indicate that these hernias are causing obstruction. These hernias appear similar to the prior examination. 3. The liver demonstrates features suggesting steatosis and possible cirrhosis. 4. Stable but nonspecific 1.7 cm left adrenal gland mass. It does not meet criteria for an adenoma on this study or on the prior examination. Suggest attention to this at follow-up imaging and consider elective adrenal protocol CT with and without intravenous contrast. 5. 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 Caprini VTE Risk Assessment Caprini VTE Risk Assessment: Moderate/High Risk (score >= 2) Caprini Risk Assessment Model: Point Value = 1 Point Value = 2 Point Value = 3 Point Value = 5 Age 41-60 Minor surgery BMI > 25 kg/m2 Swollen legs Varicose veins or History of unexplained or recurrent spontaneous Oral contraceptives or hormone replacement Sepsis (< 1 month) Serious lung disease, including pneumonia (< 1 month) Abnormal pulmonary function Acute myocardial infarction Congestive heart failure (< 1 month) History of inflammatory bowel disease Medical patient at bed rest Age 61-74 Arthroscopic surgery Major open surgery (> 45 min) Laparoscopic surgery (> 45 min) Malignancy Confined to bed (> 72 hours) Immobilizing plaster cast Central venous access Age >= 75 History of VTE Family history of VTE Factor V Leiden Prothrombin [id number] Lupus anticoagulant Anticardiolipin antibodies Elevated serum homocysteine Heparin-induced thrombocytopenia Other congenital or acquired thrombophilia Stroke (< 1 month) Elective arthroplasty Hip, pelvis, or leg fracture Acute spinal cord injury (< 1 month) Prophylaxis Regimen: Total Risk Factor Score Risk Level Prophylaxis Regimen 0-1 Low Early ambulation 2 Moderate Order ONE of the following: *Sequential Compression Device (SCD) *Heparin 5000 units SQ BID 3-4 Higher Order ONE of the following medications: *Heparin 5000 units SQ TID *Enoxaparin/Lovenox 40 mg SQ daily (WT < 150 kg, CrCl > 30 mL/min) *Enoxaparin/Lovenox 30 mg SQ daily (WT < 150 kg, CrCl > 10-29 mL/min) *Enoxaparin/Lovenox 30 mg SQ BID (WT < 150 kg, CrCl > 30 mL/min) AND/OR *Sequential Compression Device (SCD) 5 or more Highest Order ONE of the following medications: *Heparin 5000 units SQ TID (Preferred with Epidurals) *Enoxaparin/Lovenox 40 mg SQ daily (WT < 150 kg, CrCl > 30 mL/min) *Enoxaparin/Lovenox 30 mg SQ daily (WT < 150 kg, CrCl > 10-29 mL/min) *Enoxaparin/Lovenox 30 mg SQ BID (WT < 150 kg, CrCl > 30 mL/min) AND *Sequential Compression Device (SCD) Assessment and Plan - Plan This is a 52-year-old male with history of coronary artery disease status post [place] presenting with nausea, vomiting, abdominal pain and diarrhea for 3 months Acute pancreatitis-likely etiology of abdominal pain, nausea and vomiting. Diarrhea could be secondary to malabsorption. CT scan of the abdomen revealed pancreatitis, lipase is 800+. N.p.o., pain control with morphine intravenously. Likely etiology is alcohol. CAT scan did not show any gallstones, check triglyceride level/lipid profile. IVF normal saline. Dehydration-BUN elevated, electrolytes also shows evidence of dehydration, continue IVF normal saline. Mild troponin elevation-no note of chest pain, serial troponin, check EKG, could be from dehydration/demand. Patient has history of WA 10 years ago. Lactic acidosis-monitor, recheck lactic acid. LFT elevation-likely secondary to alcohol abuse. Recheck. Diarrhea -could be from malabsorption, check fecal fat, ova and parasites, TSH, Alcohol abuse - [facility] protocol. DVT prophylaxis: Lovenox H&P: Quality - VTE Deep Vein Thrombosis/Pulmonary Embolism Present on Admission: No
[2018-05-31] MEDS ORDERED: Morphine Inj 4 MG/ML Vial IV.PUSH PRN (11:55)
[2018-05-31] MEDS ORDERED: Naloxone Inj 0.4 MG/ML Vial IV.PUSH PRN (11:55)
[2018-05-31] MEDS ORDERED: LORazepam 1 MG Tablet PO PRN (12:19)
[2018-05-31] MEDS ORDERED: Haloperidol Inj 5 MG/ML Ampul IV.PUSH PRN (12:19)
--- NOTE | 2018-05-31 12:25 | ECG ---
Date Performed: 05/30/2018 Time Performed: 23:56:45 PTAGE: 52 years EKG: SINUS TACHYCARDIA WITH OCCASIONAL VENTRICULAR PREMATURE COMPLEXES ANTERIOR MYOCARDIAL INFAR CTION ABNORMAL ECG NO PREVIOUS TRACING DOCTOR: Consuelo Phipps Interpretating Date/Time 05/31/2018 12:23:05
[2018-05-31 13:47] LABS: Thyroid Stimulating Hormone 1.43 uIU/mL (0.358-3.740); Troponin I 0.07 ng/mL (0.02-0.05)
[2018-05-31] MEDS: Morphine Inj 4 MG/ML Vial IV.PUSH PRN ×3 (17:03→23:29)
--- NOTE | 2018-05-31 21:45 | ECG ---
Date Performed: 05/31/2018 Time Performed: 20:28:19 PTAGE: 52 years EKG: Sinus rhythm ANTEROLATERAL MYOCARDIAL INFARCTION, AGE UNDETERMINED ANTEROLATERAL T WAVE INVERSION, CONSIDER ISCHE ALICIA ABNORMAL ECG PREVIOUS TRACING : 05/30/2018 23.56 Compared to previous tracing, anterolateral T wave inversio n is now present. DOCTOR: Mack Matamoros Interpretating Date/Time 05/31/2018 21:44:42
[2018-06-01] MEDS: Sod Chloride 0.9% Inj 1,000 ML IV.CONT SCH ×5 (01:28→23:05)
[2018-06-01] MEDS: Morphine Inj 4 MG/ML Vial IV.PUSH PRN ×6 (03:31→21:54)
[2018-06-01 06:46] LABS: Baso # (Auto) 0.2 th/mm3 (0.0-0.2); Baso % (Auto) 1.1 % (0.0-2.0); Eos # (Auto) 0.5 th/mm3 (0.0-0.4); Eos % (Auto) 2.8 % (0.0-4.0); Hematocrit 35.7 % (39.0-51.0); Hemoglobin 12.4 gm/dL (13.0-17.0); Lymph # (Auto) 4.5 th/mm3 (1.0-4.8); Lymph % (Auto) 28.2 % (9.0-44.0); Mean Corpuscular HGB Conc 34.7 % (32.0-36.0); Mean Corpuscular Hemoglobin 36.5 pg (27.0-34.0); Mean Platelet Volume 10.6 fL (7.0-11.0); Mono # (Auto) 1.2 th/mm3 (0.0-0.9); Mono % (Auto) 7.6 % (0.0-8.0); Neut # (Auto) 9.6 th/mm3 (1.8-7.7); Neut % (Auto) 60.3 % (16.0-70.0); Platelet Count 260 th/mm3 (150-450)
[2018-06-01 06:56] LABS: Alanine Aminotransferase 52 U/L (12-78); Alkaline Phosphatase 139 U/L (45-117); Anion Gap 10 meq/L (5-15); Aspartate Aminotransferase 64 U/L (15-37); Blood Urea Nitrogen 7 mg/dL (7-18); Calcium 6.7 mg/dL (8.5-10.1); Carbon Dioxide 24.2 meq/L (21.0-32.0); Chloride 107 meq/L (98-107); Glomerular Filtration Rate Greater Than 89 mL/min (>89); Glucose,Random 97 mg/dL (74-106); Lipase 512 U/L (73-393); Potassium 3.3 meq/L (3.5-5.1); Sodium 141 meq/L (136-145); Total Protein 6.4 g/dL (6.4-8.2)
[2018-06-01] MEDS ORDERED: Calcium Chloride Inj 1 GM/10 ML Syringe IV.PUSH ONE (11:15)
--- NOTE | 2018-06-01 13:19 | P.PNIM ---
Subjective Interval history: Still complaining of epigastric abdominal pain and periumbilical abdominal pain this time. No nausea no vomiting, has been on n.p.o. No shortness of breath. Denies any chest pain yesterday or today. Physical Exam Vital signs: Vital Signs 05/31/18 16:00 05/31/18 20:00 05/31/18 20:30 Temperature 98.4 F 98.1 F Pulse Rate 79 90 Respiratory Rate 16 22 17 Blood Pressure 170/112 H 176/101 H Pulse Oximetry 97 96 06/01/18 00:00 06/01/18 01:21 06/01/18 04:00 Temperature 98.7 F 98.7 F Pulse Rate 74 70 Respiratory Rate 16 17 17 Blood Pressure 148/87 H 148/91 H Pulse Oximetry 99 95 06/01/18 08:00 06/01/18 12:00 Temperature 98.1 F Pulse Rate 75 76 Respiratory Rate 16 16 Blood Pressure 142/93 H 164/100 H Pulse Oximetry 95 95 Intake & Output 05/31/18 06/01/18 06/01/18 18:59 06:59 18:59 Intake Total 3000 / 3000 1000 / 1000 Balance 3000 / 3000 1000 / 1000 Weight 81.647 kg Intake: IV 3000 / 3000 1000 / 1000 NS Inj 1,000 ML @ 200 mls/hr IV 3000 / 3000 1000 / 1000 .CONT .Q5H [facility] Rx#:[id number] Other: # Voids 4 Date of Last Bowel Movement 05/31/18 Weight On Admission 81.647 kg Narrative: GENERAL: Not in acute distress, well-nourished. CARDIOVASCULAR: Regular rate and rhythm without murmurs, gallops, or rubs. RESPIRATORY: Clear to auscultation with normal respiratory effort. Breath sounds equal bilaterally. No use of accessory muscles of respiration. GASTROINTESTINAL: Abdomen soft, obese, normal bowel sounds, mild tenderness both right upper quadrant and left lower quadrant on superficial palpation, tenderness of the epigastric area on deep palpation. MUSCULOSKELETAL: Extremities without clubbing, cyanosis, or edema. INTEGUMENTARY: Warm and dry, no rash of generalized distribution. NEUROLOGICAL: Awake, alert, oriented 3. No obvious cranial nerve deficits. No focal neurologic deficits. Results - Labs CBC & Chem 7: 06/01/18 05:40 06/01/18 05:40 Laboratory Results - last 24 hr 05/31/18 05/31/18 05/31/18 12:55 12:55 18:40 WBC RBC Hgb Hct MCV MCH MCHC RDW Plt Count MPV Neut % (Auto) Lymph % (Auto) [place] % (Auto) Eos % (Auto) Baso % (Auto) Neut # (Auto) Lymph # (Auto) [place] # (Auto) Eos # (Auto) Baso # (Auto) WBC Differential Differential Comment Sodium Potassium Chloride Carbon Dioxide Anion Gap BUN Creatinine Estimated GFR Random Glucose Lactic Acid Less than 0.1 L Calcium Prot Corrected Calcium Total Bilirubin AST ALT Alkaline Phosphatase Troponin I 0.07 H 0.07 H Total Protein Albumin Lipase TSH 1.430 06/01/18 06/01/18 05:40 05:40 WBC 16.0 H RBC 3.40 L Hgb 12.4 L D Hct 35.7 L MCV 105.0 H MCH 36.5 H MCHC 34.7 RDW 15.0 Plt Count 260 D MPV 10.6 Neut % (Auto) 60.3 Lymph % (Auto) 28.2 [place] % (Auto) 7.6 Eos % (Auto) 2.8 Baso % (Auto) 1.1 Neut # (Auto) 9.6 H Lymph # (Auto) 4.5 [place] # (Auto) 1.2 H Eos # (Auto) 0.5 H Baso # (Auto) 0.2 WBC Differential . Differential Comment Auto diff final Sodium 141 Potassium 3.3 L D Chloride 107 D Carbon Dioxide 24.2 Anion Gap 10 BUN 7 Creatinine 0.60 Estimated GFR Greater than 89 Random Glucose 97 D Lactic Acid Calcium 6.7 L* D Prot Corrected Calcium 7.1 L* Total Bilirubin 1.5 H AST 64 H ALT 52 Alkaline Phosphatase 139 H Troponin I Total Protein 6.4 D Albumin 2.0 L D Lipase 512 H TSH Microbiology 05/31/18 01:40 Blood - Peripheral Aerobic Blood Culture - Preliminary No growth in 1 day 05/31/18 01:40 Blood - Peripheral Anaerobic Blood Culture - Preliminary No growth in 1 day 05/31/18 01:45 Blood - Peripheral Aerobic Blood Culture - Preliminary No growth in 1 day 05/31/18 01:45 Blood - Peripheral Anaerobic Blood Culture - Preliminary No growth in 1 day Assessment and Plan - Plan This is a 52-year-old male with history of coronary artery disease status post [place] presenting with nausea, vomiting, abdominal pain and diarrhea for 3 months Acute pancreatitis- likely etiology of abdominal pain, nausea and vomiting. Diarrhea could be secondary to malabsorption. CT scan of the abdomen revealed pancreatitis, lipase is 800+ now down to 500s. Continue n.p.o., continue pain control. Likely etiology is alcohol. CAT scan did not show any gallstones, check triglyceride level/lipid profile. IVF normal saline. Start regular diet this evening if cardiology is not going to do any procedure. Dehydration-BUN elevated, electrolytes also shows evidence of dehydration, continue IVF normal saline. Mild troponin elevation-no note of chest pain, serial troponin remained flat, peaked at 0.07, repeat EKG however showed T-wave inversions in the anterior- septal leads. Patient has history of LA 10 years ago. Consult cardiology, aspirin daily, check lipid profile. Lactic acidosis-resolved. Left adrenal mass-about 1.5 cm, does not meet criteria for adenoma. Recommendation is for elective adrenal protocol CT scan with and without intravenous contrast. This can be done as outpatient. If no resolution of abdominal pain, will do this imaging as inpatient. LFT elevation-likely secondary to alcohol abuse. Improving. Diarrhea -could be from malabsorption, follow-up fecal fat, ova and parasites, TSH Hypocalcemia-replace intravenously. Recheck tomorrow. Hypokalemia - replace, recheck tomorrow, check magnesium. Alcohol abuse - [facility] protocol. Stable DVT prophylaxis: Lovenox
[2018-06-01] MEDS: Potassium Chlor 10 mEq Premix 10 MEQ/100 ML PIGGYBACK IV.SIG SCH ×3 (15:16→18:34)
[2018-06-01] MEDS: Aspirin 325 MG Tablet PO SCH (15:44)
--- NOTE | 2018-06-01 17:16 | P.CONCA ---
History of Present Illness Service: Cardiology Consult date: 06/01/18 Reason for Consult: Elevated cardiac biomarkers Primary Care Provider: [facility] Chief Complaint: Abdominal pain, vomiting History of Present Illness: This is a 52-year-old gentleman with prior history of coronary disease about 10 years ago up in [place]. He now presents emergency department with intractable nausea, vomiting, and diarrhea. He describes mid epigastric and upper quadrant discomfort associated with coughing. Denies any chest pain shortness of breath. He also had decreased urine output with dehydration. Troponin was 0.07 and flat. Electrocardiogram was unremarkable. We were consulted for further recommendations. Review of Systems All other systems reviewed negative except as stated in [facility] - History History Provided By: Patient - Medical History Medical History: Medical History (Last Reviewed 05/31/18 @ 04:19 by Francoise Toribio MD) Myocardial infarction - Surgical History Surgical History: Surgical History (Last Updated 05/31/18 @ 11:52 by Danny Moses MD) History of herniorrhaphy S/P gastric surgery - Tobacco History Second Hand Smoke Exposure: No Tobacco Use In Past 30 Days: Yes Smoking Status: Current every day smoker Tobacco Type: Cigarettes Packs Per Day: 1 - Alcohol History How Often Do You Have a Drink Containing Alcohol: 2 to 3 times a week - Substance Use History Substance History: Active Abuse - Substance Use Type Marijuana Status: Active Route Used: Inhalation Frequency: ONCE A MONTH Last Used: 04/11/2018 Reason for Use: Sleep - Travel History Recent Travel in the [place] Within the Last 8 Weeks: No Recent Travel Out of the Country Within the Last 8 Weeks: No - Immunization History Tetanus Immunization: <5 Years Hx Influenza Vaccine This Season: No Medications and Allergies Active Medications: Active Medications Aspirin (Aspirin) 325 mg PO DAILY [facility] Last Admin: 06/01/18 15:44 Dose: 325 mg Enalaprilat (Vasotec Inj) 1.25 mg IV.PUSH Q6H PRN PRN Reason: SBP >165 Last Admin: 05/31/18 16:56 Dose: 1.25 mg Flumazenil (Romazecon Inj) 0.2 mg IV.PUSH Q1M PRN PRN Reason: OVERSEDATION Haloperidol Lactate (Haldol Inj) 1 mg IV.PUSH Q15M PRN PRN Reason: for severe agitation Sodium Chloride (Ns Inj) 1,000 mls @ 200 mls/hr IV.CONT .Q5H [facility] Last Admin: 06/01/18 12:52 Dose: 200 mls/hr Lorazepam (Ativan) 1 mg PO Q4H PRN PRN Reason: for CIWA 8-10 Lorazepam (Ativan) 2 mg PO Q2H PRN PRN Reason: for CIWA 11-14 Lorazepam (Ativan Inj) 2 mg IV.PUSH Q2H PRN PRN Reason: for CIWA 11-14 Lorazepam (Ativan Inj) 2 mg IV.PUSH Q15M PRN PRN Reason: for CIWA > 20 Lorazepam (Ativan Inj) 1 mg IV.PUSH Q4H PRN PRN Reason: for CIWA 8-10 Lorazepam (Ativan Inj) 2 mg IV.PUSH Q1H PRN PRN Reason: for CIWA 15-20 Morphine Sulfate (Morphine Inj) 6 mg IV.PUSH Q3H PRN PRN Reason: BREAKTHROUGH PAIN Last Admin: 06/01/18 14:49 Dose: 6 mg Naloxone HCl (Narcan Inj) 0.4 mg IV.PUSH UNSCH PRN PRN Reason: SEE LABEL COMMENTS Ondansetron HCl (Zofran Inj) 4 mg IV.PUSH Q6H PRN PRN Reason: NAUSEA OR VOMITING Last Admin: 06/01/18 09:42 Dose: 4 mg Promethazine HCl (Phenergan Inj) 25 mg IM Q6H PRN PRN Reason: Nausea, vomiting Last Admin: 05/31/18 16:40 Dose: 25 mg Sodium Chloride (Ns Flush) 2 ml IV.FLUSH PRN PRN PRN Reason: FLUSH AFTER USING IV ACCESS Allergies Allergy/AdvReac Type Severity Reaction Status Date / Time No Known Allergies Allergy Unverified 02/09/18 13:12 Home Medications Medication Instructions Recorded Confirmed Type ondansetron [Zofran ODT] 4 mg PO Q6-8H PRN 05/30/18 05/30/18 History Exam Vital signs: Vital Signs 05/31/18 20:00 05/31/18 20:30 06/01/18 00:00 Temperature 98.1 F 98.7 F Pulse Rate 90 74 Respiratory Rate 22 17 16 Blood Pressure 176/101 H 148/87 H Pulse Oximetry 96 99 06/01/18 01:21 06/01/18 04:00 06/01/18 08:00 Temperature 98.7 F 98.1 F Pulse Rate 70 75 Respiratory Rate 17 17 16 Blood Pressure 148/91 H 142/93 H Pulse Oximetry 95 95 06/01/18 12:00 06/01/18 16:00 Temperature Pulse Rate 76 63 Respiratory Rate 16 16 Blood Pressure 164/100 H 157/99 H Pulse Oximetry 95 95 Intake & Output 05/31/18 06/01/18 06/01/18 18:59 06:59 18:59 Intake Total 3000 / 3000 1100 / 1100 Balance 3000 / 3000 1100 / 1100 Weight 81.647 kg Intake: IV 3000 / 3000 1100 / 1100 NS Inj 1,000 ML @ 200 mls/hr IV 3000 / 3000 1000 / 1000 .CONT .Q5H [facility] Rx#:[id number] KCl 10 mEq Premix Inj 10 meq In 100 / 100 100 ml @ 100 mls/hr IV.SIG Q1H [facility] Rx#:[id number] Other: # Voids 4 Date of Last Bowel Movement 05/31/18 Weight On Admission 81.647 kg - Constitutional no acute distress - Routine HEENT Exam Head: Present: normocephalic Eye: Present: EOMI, PERRL ENT: Present: mucous membranes moist - Routine Neck Exam Absent: JVD - Routine Respiratory Exam Present: CTA bilaterally - Routine Cardiovascular Exam Present: RRR - Routine Abdominal Exam Present: soft - Routine Extremities Exam Absent: edema Results 06/01/18 05:40 06/01/18 05:40 Cardiac Enzymes 05/31/18 06/01/18 Range/Units 18:40 05:40 AST 64 H (15-37) U/L Troponin I 0.07 H (0.02-0.05) ng/mL CBC 06/01/18 Range/Units 05:40 WBC 16.0 H (4.0-11.0) th/mm3 RBC 3.40 L (4.50-5.90) mil/mm3 Hgb 12.4 L D (13.0-17.0) gm/dL Hct 35.7 L (39.0-51.0) % Plt Count 260 D (150-450) th/mm3 Neut # (Auto) 9.6 H (1.8-7.7) th/mm3 Lymph # (Auto) 4.5 (1.0-4.8) th/mm3 [place] # (Auto) 1.2 H (0.0-0.9) th/mm3 Eos # (Auto) 0.5 H (0.0-0.4) th/mm3 Baso # (Auto) 0.2 (0.0-0.2) th/mm3 Comprehensive Metabolic Panel 06/01/18 Range/Units 05:40 Sodium 141 (136-145) meq/L Potassium 3.3 L D (3.5-5.1) meq/L Chloride 107 D (98-107) meq/L Carbon Dioxide 24.2 (21.0-32.0) meq/L BUN 7 (7-18) mg/dL Creatinine 0.60 (0.60-1.30) mg/dL Calcium 6.7 L* D (8.5-10.1) mg/dL AST 64 H (15-37) U/L ALT 52 (12-78) U/L Alkaline Phosphatase 139 H (45-117) U/L Total Protein 6.4 D (6.4-8.2) g/dL Albumin 2.0 L D (3.4-5.0) g/dL Intake and Output 06/01/18 06/01/18 06/01/18 06:59 14:59 22:59 Intake Total 1999 1000 / 1000 100 / 100 Balance 1999 1000 / 1000 100 / 100 Intake: IV 1999 1000 / 1000 100 / 100 NS Inj 1,000 ML @ 200 mls/hr IV 1999 1000 / 1000 .CONT .Q5H [facility] Rx#:[id number] KCl 10 mEq Premix Inj 10 meq In 100 / 100 100 ml @ 100 mls/hr IV.SIG Q1H [facility] Rx#:[id number] Other: # Voids 4 EKG interpretations - Dysrhythmias Sinus rhythms and dysrhythmias: sinus rhythm Assessment and Plan - Assessment (1) Elevated troponin level Code(s): R74.8 - Abnormal levels of other serum enzymes Status: Acute - Plan Patient has prior history reported coronary artery disease and myocardial infarction about 10 years ago without recent follow-up. He now presents with dehydration associated with pancreatitis. He denies any chest pain either today or recently. He denies any significant change in shortness of breath. He is a 2-1/2 pack a day smoker. This point I think the intermediate troponin elevation is likely due to dehydration in the setting of his pancreatitis. Would not consider workup at this point for any further cardiac evaluation. That can be done on an outpatient basis. Please call with any further questions will sign off. It is okay for the patient to eat, will defer diet to the hospitalist.
[2018-06-02] MEDS: Morphine Inj 4 MG/ML Vial IV.PUSH PRN ×6 (01:09→19:34)
[2018-06-02] MEDS: Sod Chloride 0.9% Inj 1,000 ML IV.CONT SCH ×4 (04:16→21:31)
[2018-06-02 04:33] LABS: Anion Gap 10 meq/L (5-15); Blood Urea Nitrogen 7 mg/dL (7-18); Calcium 6.9 mg/dL (8.5-10.1); Carbon Dioxide 24.4 meq/L (21.0-32.0); Chloride 107 meq/L (98-107); Cholesterol 186 mg/dL (120-200); Glomerular Filtration Rate Greater Than 89 mL/min (>89); Glucose,Random 156 mg/dL (74-106); HDL Cholesterol 22.4 mg/dL (40.0-60.0); Magnesium 1.4 mg/dL (1.5-2.5); Potassium 3.3 meq/L (3.5-5.1); Sodium 141 meq/L (136-145); Triglycerides 522 mg/dL (42-150)
[2018-06-02 04:45] LABS: Total Protein 6.6 g/dL (6.4-8.2)
[2018-06-02] MEDS ORDERED: Calcium Gluconate Inj 1 GM in Dextrose 5% in Water Inj 100 ML IV.SIG ONE ×2 (06:32)
[2018-06-02] MEDS ORDERED: Mag Sulf 1 gm/100 ml Premix 100 ML IV.SIG ONE (06:32)
[2018-06-02] MEDS ORDERED: Potassium Chlor 10 mEq Premix 10 MEQ/100 ML PIGGYBACK IV.SIG ONE (06:33)
[2018-06-02] MEDS: Aspirin 325 MG Tablet PO SCH (11:27)
--- NOTE | 2018-06-02 15:07 | P.PNIM ---
Subjective Interval history: Follow-up for abdominal pain Abdominal pain still present but better, no nausea, had liquid diet, tolerated. No vomiting. Denies any chest pain or shortness of breath. Physical Exam Vital signs: Vital Signs 06/01/18 16:00 06/01/18 20:00 06/01/18 22:00 Temperature 97.6 F Pulse Rate 63 77 Respiratory Rate 16 16 17 Blood Pressure 157/99 H 167/109 H Pulse Oximetry 95 98 06/02/18 00:00 06/02/18 01:15 06/02/18 03:59 Temperature 97.4 F L 97.6 F Pulse Rate 83 87 Respiratory Rate 16 17 16 Blood Pressure 144/94 H 136/92 H Pulse Oximetry 96 97 06/02/18 08:00 06/02/18 11:49 Temperature 97.8 F 98.0 F Pulse Rate 64 67 Respiratory Rate 12 14 Blood Pressure 141/88 H 150/94 H Pulse Oximetry 93 L 94 L Intake & Output 06/01/18 06/02/18 06/02/18 18:59 06:59 18:59 Intake Total 1200 / 1200 1580 / 1580 1210 / 1210 Balance 1200 / 1200 1580 / 1580 1210 / 1210 Intake: IV 1200 / 1200 1100 / 1100 1210 / 1210 NS Inj 1,000 ML @ 200 mls/hr IV 1000 / 1000 1000 / 1000 1000 / 1000 .CONT .Q5H [facility] Rx#:[id number] Calcium Gluconate Inj 1 GM In 110 / 110 D5W Inj 100 ML @ 110 mls/hr IV. SIG ONCE ONE Rx#:[id number] Magnesium Sulfate 1 gm/D5W 100 100 / 100 ml Premix 100 ML @ 100 mls/hr IV.SIG ONCE ONE Rx#:[id number] KCl 10 mEq Premix Inj 10 meq In 200 / 200 100 / 100 100 ml @ 100 mls/hr IV.SIG Q1H [facility] Rx#:[id number] Oral 480 / 480 Other: # Voids 4 Date of Last Bowel Movement 05/31/18 Narrative: GENERAL: Not in acute distress, well-nourished. CARDIOVASCULAR: Regular rate and rhythm without murmurs, gallops, or rubs. RESPIRATORY: Clear to auscultation with normal respiratory effort. Breath sounds equal bilaterally. No use of accessory muscles of respiration. GASTROINTESTINAL: Abdomen soft, obese, normal bowel sounds, mild epigastric tenderness. MUSCULOSKELETAL: Extremities without clubbing, cyanosis, or edema. INTEGUMENTARY: Warm and dry, no rash of generalized distribution. NEUROLOGICAL: Awake, alert, oriented 3. No obvious cranial nerve deficits. No focal neurologic deficits. Results - Labs CBC & Chem 7: 06/01/18 05:40 06/02/18 03:32 Laboratory Results - last 24 hr 06/02/18 03:32 Sodium 141 Potassium 3.3 L Chloride 107 Carbon Dioxide 24.4 Anion Gap 10 BUN 7 Creatinine 0.78 Estimated GFR Greater than 89 Random Glucose 156 H Calcium 6.9 L* Prot Corrected Calcium 7.2 L* Magnesium 1.4 L Total Protein 6.6 Triglycerides 522 H Cholesterol 186 LDL Cholesterol, Calc HDL Cholesterol 22.4 L Cholesterol/HDL Ratio 8.30 Microbiology 05/31/18 01:40 Blood - Peripheral Aerobic Blood Culture - Preliminary No growth in 2 days 05/31/18 01:40 Blood - Peripheral Anaerobic Blood Culture - Preliminary No growth in 2 days 05/31/18 01:45 Blood - Peripheral Aerobic Blood Culture - Preliminary No growth in 2 days 05/31/18 01:45 Blood - Peripheral Anaerobic Blood Culture - Preliminary No growth in 2 days Assessment and Plan - Plan This is a 52-year-old male with history of coronary artery disease status post [place] presenting with nausea, vomiting, abdominal pain and diarrhea for 3 months Acute pancreatitis- likely etiology of abdominal pain, nausea and vomiting. Diarrhea could be secondary to malabsorption. CT scan of the abdomen revealed pancreatitis, lipase is 800+ now down to 500s. Continue n.p.o., continue pain control. Likely etiology is alcohol. CAT scan did not show any gallstones, triglycerides in the 500s. Start statins on discharge of LFTs is normal. Cont normal saline. Advance diet to regular cardiac diet. Dehydration-BUN elevated, electrolytes also shows evidence of dehydration, continue IVF normal saline. Mild troponin elevation-no note of chest pain, serial troponin remained flat, peaked at 0.07, repeat EKG however showed T-wave inversions in the anterior- septal leads. Patient has history of [place] 10 years ago. Cardiology consulted, troponin elevation likely from dehydration since the patient did not have any chest pain. No cardiac workup at this point. If any, can be done as outpatient. Cardiology has signed off. Lactic acidosis-resolved. Left adrenal mass-about 1.5 cm, does not meet criteria for adenoma. Recommendation is for elective adrenal protocol CT scan with and without intravenous contrast. This was discussed with the patient. He will f/u with his PCP. LFT elevation-likely secondary to alcohol abuse. Improving. Recheck LFTs tomorrow. Hypocalcemia-replace intravenously. Recheck tomorrow. Hypokalemia - replace, recheck tomorrow, check magnesium. Alcohol abuse - [facility] protocol. Stable DVT prophylaxis: Lovenox
[2018-06-02] MEDS: Mag Sulf 1 gm/100 ml Premix 100 ML IV.SIG SCH ×2 (15:28→17:26)
[2018-06-02] MEDS ORDERED: Calcium Chloride Inj 1 GM in Dextrose 5% in Water Inj 100 ML IV.SIG ONE ×2 (17:00)
[2018-06-02] MEDS: Potassium Chlor 10 mEq Premix 10 MEQ/100 ML PIGGYBACK IV.SIG SCH ×2 (19:35→21:32)
[2018-06-03] MEDS: Morphine Inj 4 MG/ML Vial IV.PUSH PRN ×2 (01:43→04:45)
[2018-06-03] MEDS: Sod Chloride 0.9% Inj 1,000 ML IV.CONT SCH ×5 (02:06→23:52)
[2018-06-03 03:52] LABS: Hematocrit 34.5 % (39.0-51.0); Hemoglobin 11.7 gm/dL (13.0-17.0); Mean Corpuscular Hemoglobin 35.9 pg (27.0-34.0); Mean Corpuscular Volume 105.6 fL (80.0-100.0); Mean Platelet Volume 10.4 fL (7.0-11.0); Platelet Count 221 th/mm3 (150-450); Red Blood Count 3.27 mil/mm3 (4.50-5.90); Red Cell Distribution Width 15.1 % (11.6-17.2); White Blood Count 12.7 th/mm3 (4.0-11.0)
[2018-06-03 04:34] LABS: Alanine Aminotransferase 66 U/L (12-78); Albumin 2.2 g/dL (3.4-5.0); Alkaline Phosphatase 162 U/L (45-117); Anion Gap 10 meq/L (5-15); Aspartate Aminotransferase 88 U/L (15-37); Blood Urea Nitrogen 4 mg/dL (7-18); Carbon Dioxide 23.9 meq/L (21.0-32.0); Chloride 107 meq/L (98-107); Glomerular Filtration Rate Greater Than 89 mL/min (>89); Glucose,Random 232 mg/dL (74-106); Lipase 241 U/L (73-393); Potassium 3.4 meq/L (3.5-5.1); Sodium 141 meq/L (136-145); Total Protein 6.6 g/dL (6.4-8.2)
[2018-06-03 07:51] VITALS: TEMP 98.3
--- NOTE | 2018-06-03 09:14 | P.DS ---
Date of admission: 05/31/18 14:52 Primary care physician: [facility] Attending physician on discharge: Danny Moses Anticipated date of discharge: 06/03/18 Brief History from admission: This is a 52-year-old male with history of coronary artery disease status post [place] 10 years ago presenting to the emergency department with nausea, vomiting, intractable for the last 3 days associated with aching right upper and left upper quadrant abdominal pain especially with coughing and vomiting. He also has a chronic diarrhea for 3 months which he thought is secondary to ventral abdominal hernia. Diarrhea is nonbloody, nonmucoid. No recent antibiotic use. He denies any fever, chills, weight loss, chest pain, shortness of breath. Of note, he follows with Dr. Vidales for his abdominal hernia, he is supposed to do an ultrasound of the gallbladder. Last bowel movement was a day ago. He has also noticed decreased urine output from intractable vomiting hence he decided to come to the emergency department. Of note, he drinks alcohol every day, last drink was 2 days ago. FHx: No h/o GB in the family Patient update on day of discharge: Patient feeling a lot better, mild abdominal pain, lipase back to normal. No chest pain, no shortness of breath. Has not moved his bowels yet. Blood pressure elevated, no headache, no focal weakness. Tolerated dinner. Replace potassium, will give magnesium citrate. Start lisinopril and statin. DS: Diagnosis - Discharge Diagnosis (1) Hypertension Status: Acute (2) Hypertriglyceridemia Status: Acute (3) Acute pancreatitis Status: Acute (4) Elevated troponin level Status: Acute DS: Medications - Discharge Medications Prescriptions: hydrocodone-acetaminophen [[place]] 1 tab PO Q4H PRN #12 tab PRN Reason: Pain lisinopril 20 mg PO DAILY #30 tab pravastatin [Pravachol] 40 mg PO DAILY #30 tab DS: Summary Hospital Course: This is a 52-year-old male with history of coronary artery disease status post [place] presenting with nausea, vomiting, abdominal pain and diarrhea for 3 months. Upon ED evaluation, the patient was found to have acute pancreatitis, likely etiology is alcohol use versus hypertriglyceridemia. CT scan of the abdomen did not show any gallstones but showed pancreatitis with a lipase of 800+. Patient was placed on n.p.o. and intravenous fluids. LFTs and lipase were monitored. After a few days, lipase improved, diet was restarted and patient tolerated that. Patient also a mild troponin elevation on admission,no note of chest pain, serial troponin remained flat, peaked at 0.07, repeat EKG however showed T-wave inversions in the anterior-septal leads. Patient has history of [place] 10 years ago. Cardiology consulted, troponin elevation likely from dehydration since the patient did not have any chest pain. No cardiac workup at this point. If any, can be done as outpatient. Cardiology has signed off. Noted LFTs has gone down, will start statin for hypertriglyceridemia. Patient was also hypertensive throughout his stay, he will be given a dose of Lasix prior to discharge after getting all the fluids, he might be hypervolemic. He will also be started on low-dose lisinopril. There was a serendipitous finding of 1.5 cm left adrenal mass left adrenal mass , does not meet criteria for adenoma. Recommendation is for elective adrenal protocol CT scan with and without intravenous contrast. This was discussed with the patient. He will f/u with his PCP. All electrolyte abnormalities were replaced. - Time Spent with Patient Total time spent providing and/or coordinating discharge services: Greater than 30 minutes - Quality: VTE Deep Vein Thrombosis/Pulmonary Embolism Present on Admission: No Exam Vital signs: Vital Signs 06/02/18 11:49 06/02/18 15:51 06/02/18 19:29 Temperature 98.0 F 98.1 F 98.4 F Pulse Rate 67 71 70 Respiratory Rate 14 12 19 Blood Pressure 150/94 H 160/100 H 177/98 H Pulse Oximetry 94 L 95 98 06/03/18 04:00 06/03/18 04:50 06/03/18 07:48 Temperature 98.4 F 98.3 F Pulse Rate 88 78 Respiratory Rate 19 18 14 Blood Pressure 171/96 H 180/104 H Pulse Oximetry 98 97 Intake & Output 06/02/18 06/03/18 06/03/18 18:59 06:59 18:59 Intake Total 2510 / 2510 2170 / 2170 Balance 2510 / 2510 2170 / 2170 Weight 91.7 kg Intake: IV 2510 / 2510 1810 / 1810 NS Inj 1,000 ML @ 200 mls/hr IV 1999 / 1999 1500 / 1500 .CONT .Q5H [facility] Rx#:[id number] Calcium Chloride Inj 1 GM In 110 / 110 D5W Inj 100 ML @ 110 mls/hr IV. SIG ONCE ONE Rx#:[id number] Calcium Gluconate Inj 1 GM In 110 / 110 D5W Inj 100 ML @ 110 mls/hr IV. SIG ONCE ONE Rx#:[id number] Magnesium Sulfate 1 gm/D5W 100 300 / 300 ml Premix 100 ML @ 100 mls/hr IV.SIG Q1H [facility] Rx#:[id number] KCl 10 mEq Premix Inj 10 meq In 100 / 100 200 / 200 100 ml @ 100 mls/hr IV.SIG Q1H [facility] Rx#:[id number] Oral 360 / 360 Other: # Voids 4 6 Date of Last Bowel Movement 05/31/18 Narrative: GENERAL: Not in acute distress, well-nourished. CARDIOVASCULAR: Regular rate and rhythm without murmurs, gallops, or rubs. RESPIRATORY: Clear to auscultation with normal respiratory effort. Breath sounds equal bilaterally. No use of accessory muscles of respiration. GASTROINTESTINAL: Abdomen soft, obese, normal bowel sounds, mild epigastric tenderness, positive for periumbilical hernia. MUSCULOSKELETAL: Extremities without clubbing, cyanosis, or edema. INTEGUMENTARY: Warm and dry, no rash of generalized distribution. NEUROLOGICAL: Awake, alert, oriented 3. No obvious cranial nerve deficits. No focal neurologic deficits. - Constitutional mild distress Results Procedures completed during hospitalization: None Completed studies during hospitalization: CT abdomen CONCLUSION: 1. Mild peripancreatic and retroperitoneal edema suggesting acute pancreatitis. No pancreatitis associated complications are present. 2. There are at least 3 anterior abdominal wall hernias, as above, containing fat, mid transverse colon, and small bowel. There are no findings to indicate that these hernias are causing obstruction. These hernias appear similar to the prior examination. 3. The liver demonstrates features suggesting steatosis and possible cirrhosis. 4. Stable but nonspecific 1.7 cm left adrenal gland mass. It does not meet criteria for an adenoma on this study or on the prior examination. Suggest attention to this at follow-up imaging and consider elective adrenal protocol CT with and without intravenous contrast. 5. 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 Labs on day of discharge: Labs from last 24 hours 06/03/18 06/03/18 03:30 03:30 WBC 12.7 H RBC 3.27 L Hgb 11.7 L Hct 34.5 L MCV 105.6 H MCH 35.9 H MCHC 34.0 RDW 15.1 Plt Count 221 MPV 10.4 Sodium 141 Potassium 3.4 L Chloride 107 Carbon Dioxide 23.9 Anion Gap 10 BUN 4 L Creatinine 0.80 Estimated GFR Greater than 89 Random Glucose 232 H Calcium 8.0 L D Total Bilirubin 0.5 Direct Bilirubin 0.3 H Indirect Bilirubin 0.2 AST 88 H ALT 66 Alkaline Phosphatase 162 H Total Protein 6.6 Albumin 2.2 L Lipase 241 Preliminary micro results at discharge 05/31/18 01:40 Aerobic Blood Culture - Preliminary Blood - Peripheral No growth in 2 days Anaerobic Blood Culture - Preliminary No growth in 2 days 05/31/18 01:45 Aerobic Blood Culture - Preliminary Blood - Peripheral No growth in 2 days Anaerobic Blood Culture - Preliminary No growth in 2 days - Impressions ITS Impressions Chest X-Ray 05/31/18 00:43 CONCLUSION: No acute cardiopulmonary abnormality is identified. Abdomen/Pelvis CT 05/31/18 04:37 CONCLUSION: 1. Mild peripancreatic and retroperitoneal edema suggesting acute pancreatitis. No pancreatitis associated complications are present. 2. There are at least 3 anterior abdominal wall hernias, as above, containing fat, mid transverse colon, and small bowel. There are no findings to indicate that these hernias are causing obstruction. These hernias appear similar to the prior examination. 3. The liver demonstrates features suggesting steatosis and possible cirrhosis. 4. Stable but nonspecific 1.7 cm left adrenal gland mass. It does not meet criteria for an adenoma on this study or on the prior examination. Suggest attention to this at follow-up imaging and consider elective adrenal protocol CT with and without intravenous contrast. 5. 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 Discharge Plan - Discharge Disposition Patient Disposition: Discharge Home - Discharge Condition Condition: Good - Discharge Order Discharge Orders: Discharge Order (Routine); Ordered 06/03/18 Ordered By: Danny Moses - Discharge Details Anticipated Discharge Date: 06/03/18 Discharge Comment: d/c if tolerates breakfast and after meds given - Physicians Team Primary Care Provider: [facility] Attending Provider: Danny Moses Other Providers: Thomas Raygoza MD
[2018-06-03] MEDS ORDERED: Lisinopril 20 MG Tablet PO SCH (09:15)
[2018-06-03] MEDS ORDERED: Magnesium Citrate Liq 300 ML Bottle PO ONE (09:15)
[2018-06-03] MEDS: Aspirin 325 MG Tablet PO SCH (09:44)
[2018-06-03] MEDS: Potassium Chlor 10 mEq Premix 10 MEQ/100 ML PIGGYBACK IV.SIG SCH ×2 (09:45→15:23)
--- NOTE | 2018-06-03 15:19 | P.DS ---
Date of admission: 05/31/18 14:52 Primary care physician: [facility] Attending physician on discharge: Eldon Trinidad Anticipated date of discharge: 06/03/18 Brief History from admission: This is a 52-year-old male with history of coronary artery disease status post [place] 10 years ago presenting to the emergency department with nausea, vomiting, intractable for the last 3 days associated with aching right upper and left upper quadrant abdominal pain especially with coughing and vomiting. He also has a chronic diarrhea for 3 months which he thought is secondary to ventral abdominal hernia. Diarrhea is nonbloody, nonmucoid. No recent antibiotic use. He denies any fever, chills, weight loss, chest pain, shortness of breath. Of note, he follows with Dr. Vidales for his abdominal hernia, he is supposed to do an ultrasound of the gallbladder. Last bowel movement was a day ago. He has also noticed decreased urine output from intractable vomiting hence he decided to come to the emergency department. Of note, he drinks alcohol every day, last drink was 2 days ago. FHx: No h/o GB in the family DS: Diagnosis - Discharge Diagnosis (1) Hypertension Status: Acute (2) Hypertriglyceridemia Status: Acute (3) Acute pancreatitis Status: Acute (4) Elevated troponin level Status: Acute DS: Medications - Discharge Medications Prescriptions: hydrocodone-acetaminophen [[place]] 1 tab PO Q4H PRN #12 tab PRN Reason: Pain lisinopril 20 mg PO DAILY #30 tab pravastatin [Pravachol] 40 mg PO DAILY #30 tab sennosides-docusate sodium [Senna with Docusate Sodium] 1 tab PO BID PRN #60 tab PRN Reason: Constipation DS: Summary - Time Spent with Patient Total time spent providing and/or coordinating discharge services: - Quality: VTE Deep Vein Thrombosis/Pulmonary Embolism Present on Admission: No Exam Vital signs: Vital Signs 06/02/18 15:51 06/02/18 19:29 06/03/18 04:00 Temperature 98.1 F 98.4 F 98.4 F Pulse Rate 71 70 88 Respiratory Rate 12 19 19 Blood Pressure 160/100 H 177/98 H 171/96 H Pulse Oximetry 95 98 98 06/03/18 04:50 06/03/18 07:48 06/03/18 12:48 Temperature 98.3 F 98.3 F Pulse Rate 78 75 Respiratory Rate 18 14 18 Blood Pressure 180/104 H 154/97 H Pulse Oximetry 97 96 Intake & Output 06/02/18 06/03/18 06/03/18 18:59 06:59 18:59 Intake Total 2510 / 2510 2170 / 2170 1000 / 1000 Balance 2510 / 2510 2170 / 2170 1000 / 1000 Weight 91.7 kg Intake: IV 2510 / 2510 1810 / 1810 1000 / 1000 NS Inj 1,000 ML @ 200 mls/hr IV 2000 / 2000 1500 / 1500 1000 / 1000 .CONT .Q5H [facility] Rx#:[id number] Calcium Chloride Inj 1 GM In 110 / 110 D5W Inj 100 ML @ 110 mls/hr IV. SIG ONCE ONE Rx#:[id number] Calcium Gluconate Inj 1 GM In 110 / 110 D5W Inj 100 ML @ 110 mls/hr IV. SIG ONCE ONE Rx#:[id number] Magnesium Sulfate 1 gm/D5W 100 300 / 300 ml Premix 100 ML @ 100 mls/hr IV.SIG Q1H [facility] Rx#:[id number] KCl 10 mEq Premix Inj 10 meq In 100 / 100 200 / 200 100 ml @ 100 mls/hr IV.SIG Q1H [facility] Rx#:[id number] Oral 360 / 360 Other: # Voids 4 6 Date of Last Bowel Movement 05/31/18 Results Procedures completed during hospitalization: None Labs on day of discharge: Labs from last 24 hours 06/03/18 06/03/18 06/03/18 03:30 03:30 03:30 WBC 12.7 H RBC 3.27 L Hgb 11.7 L Hct 34.5 L MCV 105.6 H MCH 35.9 H MCHC 34.0 RDW 15.1 Plt Count 221 MPV 10.4 Sodium 141 Potassium 3.4 L Chloride 107 Carbon Dioxide 23.9 Anion Gap 10 BUN 4 L Creatinine 0.80 Estimated GFR Greater than 89 Random Glucose 232 H Calcium 8.0 L D Magnesium 1.8 Total Bilirubin 0.5 Direct Bilirubin 0.3 H Indirect Bilirubin 0.2 AST 88 H ALT 66 Alkaline Phosphatase 162 H Total Protein 6.6 Albumin 2.2 L Lipase 241 Preliminary micro results at discharge 05/31/18 01:40 Aerobic Blood Culture - Preliminary Blood - Peripheral No growth in 3 days Anaerobic Blood Culture - Preliminary No growth in 3 days 05/31/18 01:45 Aerobic Blood Culture - Preliminary Blood - Peripheral No growth in 3 days Anaerobic Blood Culture - Preliminary No growth in 3 days - Impressions ITS Impressions Chest X-Ray 05/31/18 00:43 CONCLUSION: No acute cardiopulmonary abnormality is identified. Abdomen/Pelvis CT 05/31/18 04:37 CONCLUSION: 1. Mild peripancreatic and retroperitoneal edema suggesting acute pancreatitis. No pancreatitis associated complications are present. 2. There are at least 3 anterior abdominal wall hernias, as above, containing fat, mid transverse colon, and small bowel. There are no findings to indicate that these hernias are causing obstruction. These hernias appear similar to the prior examination. 3. The liver demonstrates features suggesting steatosis and possible cirrhosis. 4. Stable but nonspecific 1.7 cm left adrenal gland mass. It does not meet criteria for an adenoma on this study or on the prior examination. Suggest attention to this at follow-up imaging and consider elective adrenal protocol CT with and without intravenous contrast. 5. 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 Discharge Plan - Discharge Disposition Patient Disposition: 01 Discharge Home - Discharge Condition Condition: Good - Discharge Order Discharge Orders: Discharge Order (Routine); Ordered 06/03/18 Ordered By: Danny Moses - Discharge Details Anticipated Discharge Date: 06/03/18 Discharge Comment: d/c if tolerates breakfast and after meds given - Physicians Team Primary Care Provider: [facility] Attending Provider: Danny Moses Other Providers: Thomas Raygoza MD
[2018-06-03 15:46] VITALS: PULSE 69; RESP 16; O2SAT 97
[2018-06-03 15:59] VITALS: BP 158/102
== END 2018-06-03 20:29 | disposition home or self-care (01) ==
LOC: NEPE 23:36 → NEDA 23:36 → NEPHCDU 05-31 09:23
PROVIDERS: ADMIT Hospitalist; ATTEND Hospitalist

== ENCOUNTER 2018-07-21 00:02 | Inpatient (IN) ==
[2018-07-21] MEDS ORDERED: Thiamine Inj 100 MG in Sodium Chlor 0.9% Inj 100 ML IV.SIG ONE (00:26)
[2018-07-21] MEDS ORDERED: Sod Chloride 0.9% Inj 1,000 ML IV.CONT SCH (00:30)
--- NOTE | 2018-07-21 00:33 | ED ---
HPI General Chief Complaint: Nausea/Vomiting/Diarrhea Stated Complaint: N/V x 3 days Time Seen by Provider: 07/21/18 00:26 Source: patient and family Mode of arrival: ambulatory Limitations: no limitations History of Present Illness HPI narrative: 52-year-old male presents to the emergency department by private transportation the care of his spouse for complaint of 3 days of abdominal pain with multiple episodes of vomiting. Patient recently hospitalized in May with pancreatitis and similar presentation. Patient has multiple ventral hernias and has been evaluated by general surgery regarding repair of the abdominal hernias however prior to undergoing surgical intervention the surgeon reportedly has recommended the patient have an ultrasound of the gallbladder and also undergo cardiac evaluation to see if he needs cardiac management prior to undergoing general surgery intervention. Patient has history of myocardial infarction untreated hypertension dyslipidemia tobaccoism with 2 pack/day history as well as daily alcohol use and pancreatitis. Patient states pain is consistent with his pancreatitis pain. Patient also has soreness of the abdominal wall and chest wall from multiple episodes of vomiting. states the patient was resistant to coming to the emergency room until this evening because of persistent vomiting. Patient admits to drinking alcohol daily but has not been able to drink consistently alcohol due to multiple episodes of vomiting but did have alcohol "" one drink around 9 PM prior to coming to the emergency room. Patient presents here very tremulous and shaky. Patient has had no injury or fall. Patient denies hematemesis coffee-ground emesis melena hematochezia. Patient is unable to identify exacerbating or alleviating factors. MD complaint: Reports abdominal pain Onset (ago): day(s) (3) Pain Consistency: constant Location: Reports diffuse Severity: similar to previous episodes Severity scale (1-10): 8 Quality: Reports cramping, stabbing, aching, fullness and sharp Radiation: Reports back Migration to: Reports no migration Relieving factors: nothing Exacerbating factors: eating, vomiting and movement Context: Reports history of similar episodes; Denies foreign travel, possible food poisoning, sick contacts, recent antibiotic use, recent surgery/procedure and recent injury Associated symptoms: Reports nausea, vomiting, diarrhea and anorexia; Denies fever, chills, constipation, dysuria, hematemesis, hematochezia, melena, hematuria, syncope and other Treatments prior to arrival: Denies NSAIDs, prescription analgesics and antacids Related Data Home Medications Medication Instructions Recorded Confirmed ondansetron [Zofran ODT] 4 mg PO QID PRN 07/21/18 07/21/18 Allergies Allergy/AdvReac Type Severity Reaction Status Date / Time No Known Allergies Allergy Unverified 07/21/18 00:04 Review of Systems ROS: all other systems reviewed are negative PMFSH History History Provided By: Patient (Hernias herniorrhaphy exploratory laparotomy bilateral knee surgery elbow surgery myocardial infarction dyslipidemia hypertension pancreatitis tobacco use alcohol use) and Family Member Medical History Medical History COPD (chronic obstructive pulmonary disease) (Acute) Hypertension (Acute) Myocardial infarction (Acute) Surgical History Surgical History History of herniorrhaphy (Acute) S/P gastric surgery (Acute) Social History Social History Substance History: Active Abuse Second Hand Smoke Exposure: Yes Smoking Status: Current every day smoker Tobacco Type: Cigarettes Packs Per Day: 1 Cigarettes Per Day: 20.0 How Often Do You Have a Drink Containing Alcohol: 4 or more times a week Recent Travel in [facility] within the Last 8 Weeks: No Recent Out of Country Travel within the Last 8 Weeks: No Exam Narrative Exam Narrative: GENERAL: Well-developed disheveled male in obvious discomfort no respiratory distress SKIN: Focused skin assessment warm/dry. HEAD: Atraumatic. Normocephalic. EYES: Pupils equal and round. No scleral icterus. No injection or drainage. ENT: No nasal bleeding or discharge. Mucous membranes pink and moist. NECK: Trachea midline. No JVD. CARDIOVASCULAR: Increased regular rate and rhythm. No murmur appreciated. RESPIRATORY: No accessory muscle use. Clear to auscultation. Breath sounds equal bilaterally. GASTROINTESTINAL: Abdomen soft, diffusely tender with reducible multiple hernias well-healed midline scars without redness induration or drainage, nondistended. Hepatic and splenic margins not palpable. MUSCULOSKELETAL: No obvious deformities. No clubbing. No cyanosis. No edema. NEUROLOGICAL: Awake and alert. No obvious cranial nerve deficits. Motor grossly within normal limits. Normal speech. PSYCHIATRIC: Appropriate mood and affect; insight and judgment normal. Course Initial Documented Vital Signs Temperature 97.8 F 07/21/18 00:06 Pulse Rate 130 H 07/21/18 00:06 Respiratory Rate 18 07/21/18 00:06 Blood Pressure 156/113 H 07/21/18 00:06 Pulse Oximetry 95 07/21/18 00:06 Last Documented Vital Signs Temperature 97.8 F 07/21/18 00:06 Pulse Rate 100 H 07/21/18 03:44 Respiratory Rate 20 07/21/18 03:44 Blood Pressure 164/102 H 07/21/18 03:44 Pulse Oximetry 97 07/21/18 03:59 Medical Decision Making MDM Narrative Medical decision making narrative: 52-year-old male with known history of pancreatitis dyslipidemia hypertension untreated alcohol use tobaccoism previous HI presents with severe abdominal pain with 3 days of nausea and vomiting. No chest pain no shortness of breath no hematemesis no coffee-ground emesis no melena or hematochezia. No fever or chills. Last alcohol intake 9 PM this evening prior to arrival to the emergency department. Patient admits to daily alcohol use and daily tobacco use. Patient placed on cafeteria monitor IV access obtained specimens collected and sent for resulting EKG ordered in view of cardiac risk factors hypertension dyslipidemia previous HI ongoing tobacco abuse patient denies chest pain referred neck jaw back shoulder arm pain or sweats. Patient administered IV fluid bolus Ativan 1 mg IV and Zofran 4 mg IV EKG is sinus tachycardia with rightward axis age-indeterminate QS anteroseptally with no acute ST elevation or injury pattern At 3:30 AM patient resting comfortably no chest pain no shortness of breath no nausea no vomiting abdominal pain has markedly decreased to 2/10 in intensity no referred neck jaw back shoulder arm pain patient's case discussed with medicine service for admission for management of pancreatitis alcohol withdrawal and elevated troponin I of 0.06 with history of CAD and EKG that shows evidence of QS golden laterally with concern for recent HI CK total within normal range patient states not having chest pain has pain associated with vomiting. Second troponin I has been ordered and medicine service aware result is pending. Medical Screen Exam Complete: Yes Emergency Medical Condition: Yes Differential Diagnosis Differential Diagnosis: Abdominal pain bowel obstruction pancreatitis HI Medical Records Medical records reviewed: Yes I reviewed the patient's medical records. Lab Data Lab results reviewed: Yes I reviewed the patient's lab results. Result diagrams: 07/21/18 00:30 07/21/18 00:30 Lab Results 07/21/18 07/21/18 07/21/18 Range/Units 00:30 00:30 00:30 CBC w Diff Auto diff final WBC 15.7 H (4.0-11.0) th/mm3 RBC 4.91 (4.50-5.90) mil/mm3 Hgb 16.6 (13.0-17.0) gm/dL Hct 49.6 (39.0-51.0) % MCV 101.2 H (80.0-100.0) fL MCH 33.8 (27.0-34.0) pg MCHC 33.5 (32.0-36.0) % RDW 13.8 (11.6-17.2) % Plt Count 279 (150-450) th/mm3 MPV 11.2 H (7.0-11.0) fL Neut % (Auto) 83.1 H (16.0-70.0) % Lymph % (Auto) 11.9 (9.0-44.0) % Drew % (Auto) 4.4 (0.0-8.0) % Eos % (Auto) 0.1 (0.0-4.0) % Baso % (Auto) 0.5 (0.0-2.0) % Neut # (Auto) 13.0 H (1.8-7.7) th/mm3 Lymph # (Auto) 1.9 (1.0-4.8) th/mm3 Drew # (Auto) 0.7 (0.0-0.9) th/mm3 Eos # (Auto) 0.0 (0.0-0.4) th/mm3 Baso # (Auto) 0.1 (0.0-0.2) th/mm3 WBC Differential . Differential Comment . Sodium 133 L (136-145) meq/L Potassium 3.2 L (3.5-5.1) meq/L Chloride 90 L (98-107) meq/L Carbon Dioxide 27.6 (21.0-32.0) meq/L Anion Gap 15 (5-15) meq/L BUN 11 (7-18) mg/dL Creatinine 1.20 (0.60-1.30) mg/dL Estimated GFR 63 L (>89) mL/min Random Glucose 245 H (74-106) mg/dL Lactic Acid 4.0 H (0.4-2.0) mmol/L Calcium 8.4 L (8.5-10.1) mg/dL Magnesium 1.1 L (1.5-2.5) mg/dL Total Bilirubin 1.6 H (0.2-1.0) mg/dL AST 164 H (15-37) U/L ALT 134 H (12-78) U/L Alkaline Phosphatase 193 H (45-117) U/L Troponin I (0.02-0.05) ng/mL Total Protein 8.9 H (6.4-8.2) g/dL Albumin 3.5 (3.4-5.0) g/dL Lipase 678 H (73-393) U/L Serum Alcohol Less than 3 (0-5) mg/dL 07/21/18 07/21/18 Range/Units 00:30 03:20 CBC w Diff WBC (4.0-11.0) th/mm3 RBC (4.50-5.90) mil/mm3 Hgb (13.0-17.0) gm/dL Hct (39.0-51.0) % MCV (80.0-100.0) fL MCH (27.0-34.0) pg MCHC (32.0-36.0) % RDW (11.6-17.2) % Plt Count (150-450) th/mm3 MPV (7.0-11.0) fL Neut % (Auto) (16.0-70.0) % Lymph % (Auto) (9.0-44.0) % Drew % (Auto) (0.0-8.0) % Eos % (Auto) (0.0-4.0) % Baso % (Auto) (0.0-2.0) % Neut # (Auto) (1.8-7.7) th/mm3 Lymph # (Auto) (1.0-4.8) th/mm3 Drew # (Auto) (0.0-0.9) th/mm3 Eos # (Auto) (0.0-0.4) th/mm3 Baso # (Auto) (0.0-0.2) th/mm3 WBC Differential Differential Comment Sodium (136-145) meq/L Potassium (3.5-5.1) meq/L Chloride (98-107) meq/L Carbon Dioxide (21.0-32.0) meq/L Anion Gap (5-15) meq/L BUN (7-18) mg/dL Creatinine (0.60-1.30) mg/dL Estimated GFR (>89) mL/min Random Glucose (74-106) mg/dL Lactic Acid (0.4-2.0) mmol/L Calcium (8.5-10.1) mg/dL Magnesium (1.5-2.5) mg/dL Total Bilirubin (0.2-1.0) mg/dL AST (15-37) U/L ALT (12-78) U/L Alkaline Phosphatase (45-117) U/L Troponin I 0.06 H 0.06 H (0.02-0.05) ng/mL Total Protein (6.4-8.2) g/dL Albumin (3.4-5.0) g/dL Lipase (73-393) U/L Serum Alcohol (0-5) mg/dL Imaging Data Radiologist's impression: Abdomen/Pelvis CT 07/21/18 00:26 CONCLUSION: 1. Hepatic steatosis. 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 3. The previously seen induration around the pancreas has resolved. 4. Mild hiatal hernia. 5. 4 midline hernias as described above. 2 of these contain bowel. Significant bowel dilatation to suggest obstruction is not seen. 6. Colonic diverticula without inflammatory change. 7. Stable 2 cm left adrenal gland mass. This is nonspecific. Chest X-Ray 07/21/18 00:26 CONCLUSION: No acute cardiopulmonary process. Discharge Plan Discharge Disposition Patient Disposition: 30 Still Patient Discharge Condition Condition: Stable Discharge Details Diagnosis: Acute pancreatitis, Elevated troponin level, Alcohol withdrawal Physicians Team ED Provider: Petty Dahl Primary Care Provider: [facility],Physician 's Attending Provider: Rachelle Booth Status ED Status: Admitted Observation Patient
[2018-07-21 00:48] LABS: Baso # (Auto) 0.1 th/mm3 (0.0-0.2); Baso % (Auto) 0.5 % (0.0-2.0); Eos % (Auto) 0.1 % (0.0-4.0); Hematocrit 49.6 % (39.0-51.0); Hemoglobin 16.6 gm/dL (13.0-17.0); Lymph # (Auto) 1.9 th/mm3 (1.0-4.8); Lymph % (Auto) 11.9 % (9.0-44.0); Mean Corpuscular HGB Conc 33.5 % (32.0-36.0); Mean Corpuscular Hemoglobin 33.8 pg (27.0-34.0); Mean Corpuscular Volume 101.2 fL (80.0-100.0); Mean Platelet Volume 11.2 fL (7.0-11.0); Mono # (Auto) 0.7 th/mm3 (0.0-0.9); Mono % (Auto) 4.4 % (0.0-8.0); Neut % (Auto) 83.1 % (16.0-70.0); Platelet Count 279 th/mm3 (150-450); Red Blood Count 4.91 mil/mm3 (4.50-5.90); Red Cell Distribution Width 13.8 % (11.6-17.2); White Blood Count 15.7 th/mm3 (4.0-11.0)
[2018-07-21 00:58] LABS: Chloride 90 meq/L (98-107); Potassium 3.2 meq/L (3.5-5.1); Sodium 133 meq/L (136-145)
[2018-07-21 01:01] LABS: Calcium 8.4 mg/dL (8.5-10.1)
[2018-07-21 01:02] LABS: Albumin 3.5 g/dL (3.4-5.0); Anion Gap 15 meq/L (5-15); Blood Urea Nitrogen 11 mg/dL (7-18); Carbon Dioxide 27.6 meq/L (21.0-32.0); Glucose,Random 245 mg/dL (74-106); Lipase 678 U/L (73-393); Magnesium 1.1 mg/dL (1.5-2.5)
[2018-07-21 01:04] LABS: Alanine Aminotransferase 134 U/L (12-78)
[2018-07-21 01:05] LABS: Aspartate Aminotransferase 164 U/L (15-37); Glomerular Filtration Rate 63 mL/min (>89)
[2018-07-21 01:06] LABS: Total Protein 8.9 g/dL (6.4-8.2)
[2018-07-21 01:07] LABS: Alkaline Phosphatase 193 U/L (45-117)
--- NOTE | 2018-07-21 01:36 | XR ---
EXAM DATE: 07/21/2018 12:26 AM EDT AGE/SEX: 52 years / Male INDICATIONS: Patient complains of abdominal pain, nausea, and vomiting. CLINICAL DATA: This is the patient's initial encounter. Patient reports that signs and symptoms have been present for 3 days and indicates a pain score of 0/10. MEDICAL/SURGICAL HISTORY: Myocardial infarction. . 2 cardiac stents. [place] [facility] [place]. . FINDINGS: The heart size is normal. The aorta is elongated. Lungs are grossly clear. No effusion is seen. There appears to be chronic change at the anterior third and fourth right ribs likely from prior fracture. CONCLUSION: No acute cardiopulmonary process. Electronically signed by: Jm Arreguin MD 07/21/2018 1:35 AM EDT
[2018-07-21] MEDS ORDERED: Haloperidol Inj 5 MG/ML Ampul IV.PUSH PRN (01:42)
[2018-07-21] MEDS ORDERED: Morphine Inj 4 MG/ML Vial IV.PUSH ONE (02:03)
--- NOTE | 2018-07-21 02:24 | CT ---
EXAM DATE: 07/21/2018 1:22 AM EDT AGE/SEX: 52 years / Male INDICATIONS: Abdominal pain. Nausea. Vomiting. CLINICAL DATA: This is the patient's initial encounter. Patient reports that signs and symptoms have been present for 3 days and indicates a pain score of 8/10. MEDICAL/SURGICAL HISTORY: Chronic obstructive pulmonary disease. Hypertension. Umbilical herni a. Fusion, lumbar. Gastric surgery. ORAL CONTRAST: No oral contrast ingested. RADIATION DOSE: 17.27 CTDI (mGy) COMPARISON: [facility] – [place] ABDOMEN & PELVIS W CONTRAST, 05/31/2018. . TECHNIQUE: Multiple contiguous axial images were obtained through the abdomen and pelvis following b olus infusion of 100 ml Omnipaque 350 (iohexol) nonionic water-soluble contrast as a single exam do se. No oral contrast ingested. Using automated exposure control and adjustment of the mA and/or kV a ccording to patient size, radiation dose was kept as low as reasonably achievable to obtain optimal d iagnostic quality images. DICOM format image data is available electronically for review and compari son. FINDINGS: Lower Lungs: The visualized lower lungs are clear. Liver: There is diffuse decreased attenuation to the liver. No focal hepatic lesion is seen. Spleen: The spleen is absent. Pancreas: Unremarkable without mass or calcification. The previously seen induration around the panc reas is not seen today. Kidneys: Normal in size and shape. No evidence of hydronephrosis. There are small cysts seen at the anterior superior left kidney measuring up to 7 mm. Adrenal Glands: There is a 2 cm oval mass seen in the left adrenal gland appears nonspecific. It wa s present previously. The right adrenal gland is normal. Aorta: There is atherosclerotic calcification seen throughout the arterial system. Bowel/Mesentery: There is a mild hiatal hernia. A portion of the mid transverse colon is seen within a hernia at midline. There is also a hernia seen in the more inferiorly in the midline to the left c ontaining segments of small bowel. This includes an anastomotic segment of small bowel. Significant b owel dilatation to suggest obstruction is not seen. Colonic diverticula are present. Abdominal Wall: There appear to be 4 midline hernias. The most superior hernia defect measures 2.1 c m in transverse dimension and contains only mesenteric fat. The second hernia is seen slightly inferi or to the first hernia with the defect measuring 3.6 cm. The cervix contains a portion of the mid asp ect of the transverse colon. The next most inferior hernia defect measures 1.9 cm. The stomach contai ns only mesenteric fat. The most inferior hernia is seen in the midline extensive the left. The defec t measures 4.9 cm at the anterior abdominal wall. This hernia containing mesenteric fat, segments of small bowel, and anastomotic segment of small bowel. Retroperitoneum: No evidence of adenopathy in the retrocrural, para-aortic, or deep pelvic regions. Bladder: Contours are smooth. Reproductive Organs: No abnormal masses or calcifications seen. Inguinal: The inguinal region is unremarkable without evidence of adenopathy. Bony Structures: There are old rib fractures seen bilaterally. There is grade 1 anterior spondylolis thesis of L4 and L5. The patient is post surgical change at this level with transpedicular screws for stabilization. There is a stabilization device seen at the L4-L5 disc level. CONCLUSION: 1. Hepatic steatosis. 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 3. The previously seen induration around the pancreas has resolved. 4. Mild hiatal hernia. 5. 4 midline hernias as described above. 2 of these contain bowel. Significant bowel dilatation to s uggest obstruction is not seen. 6. Colonic diverticula without inflammatory change. 7. Stable 2 cm left adrenal gland mass. This is nonspecific. Electronically signed by: Jm Arreguin MD 07/21/2018 2:23 AM EDT
[2018-07-21] MEDS: Mag Sulf 1 gm/100 ml Premix 100 ML IV.SIG SCH ×2 (02:36→03:33)
[2018-07-21] MEDS: Sod Chloride 0.9% Inj 1,000 ML IV.SIG SCH ×2 (03:00→15:20)
[2018-07-21] MEDS ORDERED: Bisacodyl 10 MG Supp RECTAL PRN (03:35)
[2018-07-21] MEDS: Heparin - SQ 10,000 UNITS/ML Vial SQ SCH ×3 (04:21→20:44)
[2018-07-21] MEDS: Sod Chloride 0.9% Inj 1,000 ML IV.CONT SCH ×2 (04:25→15:22)
[2018-07-21 05:34] LABS: Bilirubin,Urine Negative (Negative); Clarity,Urine Clear (Clear); Glucose,Urine (UA) 250 mg/dL (Negative); Leukocyte Esterase,Urine Negative (Negative); Nitrite,Urine Negative (Negative)
[2018-07-21 05:39] LABS: Color,Urine Amber (Yellw/Straw); RBC,Urine 0-3 /hpf (0-3); Squamous Epithelial Cell,Urine 0-5 /hpf (0-5); WBC,Urine 0-5 /hpf (0-5)
[2018-07-21] MEDS: LORazepam 1 MG Tablet PO PRN ×2 (08:12→12:29)
--- NOTE | 2018-07-21 08:21 | ECG ---
Date Performed: 07/21/2018 Time Performed: 01:01:06 PTAGE: 52 years EKG: SINUS TACHYCARDIA BORDERLINE RIGHT AXIS DEVIATION ANTEROLATERAL MYOCARDIAL INFARCTION Dejuan red to prior electrocardiogram, T-wave changes are less prominent.Rate has increased. PREVIOUS TRACING : 05/31/2018 20.28 DOCTOR: Hardeep Garay Interpretating Date/Time 07/21/2018 08:21:15
--- NOTE | 2018-07-21 08:21 | ECG ---
Date Performed: 07/21/2018 Time Performed: 02:18:09 PTAGE: 52 years EKG: SINUS TACHYCARDIA ANTEROLATERAL MYOCARDIAL INFARCTION No significant change from prior elec trocardiogram. PREVIOUS TRACING : 07/21/2018 01.01 DOCTOR: Hardeep Garay Interpretating Date/Time 07/21/2018 08:20:36
--- NOTE | 2018-07-21 09:30 | P.HPIM ---
History of Present Illness Primary Care Physician: [facility] Chief Complaint: abdominal pain History of Present Illness: patient is a 52 y/o male with history of CAD, pancreatitis, alcohol abuse who presented to ER with abdominal pain. he says that the pain is periumbilical and has been going on for three days. pain is more or less constant with some radiation to the back.he had some nausea and vomiting for the past three days. he denies any fever, chills. he denies any chest pain. his last drink was about a week ago. pain was mild to moderate at the time of my evaluation. Review of Systems All other systems reviewed negative except as stated in HPI PMFSH - History History Provided By: Patient - Medical History Medical History: Medical History (Last Reviewed 07/21/18 @ 09:25 by Basil Carranza MD) COPD (chronic obstructive pulmonary disease) Hypertension Myocardial infarction - Surgical History Surgical History: Surgical History (Last Reviewed 07/21/18 @ 09:25 by Basil Carranza MD) History of herniorrhaphy S/P gastric surgery - Tobacco History Second Hand Smoke Exposure: Yes Tobacco Use In Past 30 Days: Yes Smoking Status: Heavy tobacco smoker Tobacco Type: Cigarettes Packs Per Day: 1 - Alcohol History How Often Do You Have a Drink Containing Alcohol: 4 or more times a week - Substance Use History Substance History: Active Abuse - Substance Use Type Marijuana Status: Active Route Used: Inhalation Frequency: marijuana Last Used: months ago Reason for Use: Sleep - Travel History Recent Travel in the [place] Within the Last 8 Weeks: No Recent Travel Out of the Country Within the Last 8 Weeks: No - Immunization History Tetanus Immunization: <5 Years Medications and Allergies Active Medications: Active Medications Al Hydroxide/Mg Hydroxide (Milk Of [place] Liq) 30 ml PO Q12H PRN PRN Reason: Mild Constipation Bisacodyl (Dulcolax Supp) 10 mg RECTAL DAILY PRN PRN Reason: SEVERE CONSITIPATION Flumazenil (Romazecon Inj) 0.2 mg IV.PUSH Q1M PRN PRN Reason: OVERSEDATION Haloperidol Lactate (Haldol Inj) 1 mg IV.PUSH Q15M PRN PRN Reason: for severe agitation Heparin Sodium (Porcine) (Heparin Inj) 5,000 units SQ Q8H [facility] Last Admin: 07/21/18 04:21 Dose: 5,000 units Sodium Chloride (Ns Inj) 1,000 mls @ 0 mls/hr IV.SIG BOLUS DONNY Last Infusion: 07/21/18 04:23 Dose: Infused Sodium Chloride (Ns Inj) 1,000 mls @ 100 mls/hr IV.CONT .Q10H DONNY Last Admin: 07/21/18 04:25 Dose: 100 mls/hr Lactulose (Lactulose Liq) 30 ml PO DAILY PRN PRN Reason: SEVERE CONSITIPATION Lorazepam (Ativan Inj) 1 mg IV.PUSH Q4H PRN PRN Reason: for CIWA 8-10 Lorazepam (Ativan Inj) 2 mg IV.PUSH Q15M PRN PRN Reason: for CIWA > 20 Lorazepam (Ativan Inj) 2 mg IV.PUSH Q2H PRN PRN Reason: for CIWA 11-14 Lorazepam (Ativan) 1 mg PO Q4H PRN PRN Reason: for CIWA 8-10 Last Admin: 07/21/18 08:12 Dose: 1 mg Lorazepam (Ativan) 2 mg PO Q2H PRN PRN Reason: for CIWA 11-14 Lorazepam (Ativan Inj) 2 mg IV.PUSH Q1H PRN PRN Reason: for CIWA 15-20 Ondansetron HCl (Zofran Inj) 4 mg IV.PUSH Q6H PRN PRN Reason: NAUSEA OR VOMITING Senna/Docusate Sodium (Kristen-Colace) 1 tab PO BID [facility] Sennosides (Senokot) 17.2 mg PO Q12H PRN PRN Reason: Moderate Constipation Sodium Chloride (Ns Flush) 2 ml IV.FLUSH PRN PRN PRN Reason: FLUSH AFTER USING IV ACCESS Thiamine HCl (Vitamin B1) 100 mg PO BID [facility] Allergies Allergy/AdvReac Type Severity Reaction Status Date / Time No Known Allergies Allergy Unverified 07/21/18 00:04 Home Medications Medication Instructions Recorded Confirmed Type ondansetron [Zofran ODT] 4 mg PO QID PRN 07/21/18 07/21/18 History Exam Vital signs: Vital Signs 07/21/18 00:06 07/21/18 00:30 07/21/18 01:10 Temperature 97.8 F Pulse Rate 130 H 128 H 106 H Respiratory Rate 18 20 22 Blood Pressure 156/113 H 159/120 H 157/97 H Pulse Oximetry 95 90 L 07/21/18 02:30 07/21/18 02:35 07/21/18 02:40 Temperature Pulse Rate 118 H Respiratory Rate Blood Pressure 190/118 H 164/111 H 149/98 H Pulse Oximetry 96 07/21/18 02:50 07/21/18 03:02 07/21/18 03:22 Temperature Pulse Rate 106 H Respiratory Rate 14 18 Blood Pressure 140/83 134/81 Pulse Oximetry 96 07/21/18 03:44 07/21/18 03:59 07/21/18 04:25 Temperature Pulse Rate 100 H Respiratory Rate 20 Blood Pressure 164/102 H Pulse Oximetry 92 L 97 97 07/21/18 04:29 07/21/18 05:17 07/21/18 05:22 Temperature 99.0 F Pulse Rate 100 H 77 100 H Respiratory Rate 16 18 18 Blood Pressure 137/95 H 153/98 H 138/90 Pulse Oximetry 98 98 99 07/21/18 06:20 07/21/18 08:00 Temperature 97.8 F Pulse Rate 95 H 90 Respiratory Rate 16 Blood Pressure 173/100 H Pulse Oximetry 93 L Intake & Output 07/20/18 07/21/18 07/21/18 18:59 06:59 18:59 Intake Total 2301 / 2301 Balance 2301 / 2301 Weight 79.7 kg Intake: IV 2301 / 2301 NS Inj 1,000 ML @ 125 mls/hr IV 1000 / 1000 .CONT .Q8H DONNY Rx#:[id number] Magnesium Sulfate 1 gm/D5W 100 200 / 200 ml Premix 100 ML @ 100 mls/hr IV.SIG Q1H DONNY Rx#:[id number] NS Inj 1,000 ML @ Wide Open IV. 1000 / 1000 SIG BOLUS DONNY Rx#:[id number] Thiamine Inj 100 MG In NS Inj 101 / 101 100 ML @ 100 mls/hr IV.SIG ONCE ONE Rx#:[id number] Other: # Voids 1 Weight On Admission 79.379 kg - Constitutional no acute distress - Routine HEENT Exam Eye: Present: PERRL - Routine Neck Exam Present: supple - Routine Respiratory Exam Present: CTA bilaterally - Routine Cardiovascular Exam Present: RRR - Routine Abdominal Exam Present: soft, tenderness (mild periumbilical tenderness.) - Routine Extremities Exam Comments: no pedal edema. - Routine Neurological Exam Present: alert, oriented X3 Results - Labs CBC & Chem 7: 07/21/18 00:30 07/21/18 00:30 Labs: Short CBC 07/21/18 Range/Units 00:30 WBC 15.7 H (4.0-11.0) th/mm3 Hgb 16.6 (13.0-17.0) gm/dL Hct 49.6 (39.0-51.0) % Plt Count 279 (150-450) th/mm3 BMP 07/21/18 00:30 Sodium 133 L Potassium 3.2 L Chloride 90 L Carbon Dioxide 27.6 BUN 11 Creatinine 1.20 Calcium 8.4 L Cardiac Enzymes 07/21/18 07/21/18 Range/Units 00:30 03:20 Troponin I 0.06 H 0.06 H (0.02-0.05) ng/mL Liver Function 07/21/18 Range/Units 00:30 Total Bilirubin 1.6 H (0.2-1.0) mg/dL AST 164 H (15-37) U/L ALT 134 H (12-78) U/L Alkaline Phosphatase 193 H (45-117) U/L Albumin 3.5 (3.4-5.0) g/dL Urine 07/21/18 Range/Units 05:00 Urine Color Dory H (Yellw/Straw) Urine Clarity Clear (Clear) Urine pH 7.0 (5.0-8.5) Ur Specific [place] 1.010 (1.002-1.035) Urine Protein 100 H (Neg-Trace) mg/dL Urine Glucose (UA) 250 H (Negative) mg/dL - Imaging Impressions Abdomen/Pelvis CT 07/21/18 00:26 CONCLUSION: 1. Hepatic steatosis. 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 3. The previously seen induration around the pancreas has resolved. 4. Mild hiatal hernia. 5. 4 midline hernias as described above. 2 of these contain bowel. Significant bowel dilatation to suggest obstruction is not seen. 6. Colonic diverticula without inflammatory change. 7. Stable 2 cm left adrenal gland mass. This is nonspecific. Chest X-Ray 07/21/18 00:26 CONCLUSION: No acute cardiopulmonary process. Caprini VTE Risk Assessment Caprini VTE Risk Assessment: Moderate/High Risk (score >= 2) Caprini Risk Assessment Model: Point Value = 1 Point Value = 2 Point Value = 3 Point Value = 5 Age 41-60 Minor surgery BMI > 25 kg/m2 Swollen legs Varicose veins or History of unexplained or recurrent spontaneous Oral contraceptives or hormone replacement Sepsis (< 1 month) Serious lung disease, including pneumonia (< 1 month) Abnormal pulmonary function Acute myocardial infarction Congestive heart failure (< 1 month) History of inflammatory bowel disease Medical patient at bed rest Age 61-74 Arthroscopic surgery Major open surgery (> 45 min) Laparoscopic surgery (> 45 min) Malignancy Confined to bed (> 72 hours) Immobilizing plaster cast Central venous access Age >= 75 History of VTE Family history of VTE Factor V Leiden Prothrombin [id number] Lupus anticoagulant Anticardiolipin antibodies Elevated serum homocysteine Heparin-induced thrombocytopenia Other congenital or acquired thrombophilia Stroke (< 1 month) Elective arthroplasty Hip, pelvis, or leg fracture Acute spinal cord injury (< 1 month) Prophylaxis Regimen: Total Risk Factor Score Risk Level Prophylaxis Regimen 0-1 Low Early ambulation 2 Moderate Order ONE of the following: *Sequential Compression Device (SCD) *Heparin 5000 units SQ BID 3-4 Higher Order ONE of the following medications: *Heparin 5000 units SQ TID *Enoxaparin/Lovenox 40 mg SQ daily (WT < 150 kg, CrCl > 30 mL/min) *Enoxaparin/Lovenox 30 mg SQ daily (WT < 150 kg, CrCl > 10-29 mL/min) *Enoxaparin/Lovenox 30 mg SQ BID (WT < 150 kg, CrCl > 30 mL/min) AND/OR *Sequential Compression Device (SCD) 5 or more Highest Order ONE of the following medications: *Heparin 5000 units SQ TID (Preferred with Epidurals) *Enoxaparin/Lovenox 40 mg SQ daily (WT < 150 kg, CrCl > 30 mL/min) *Enoxaparin/Lovenox 30 mg SQ daily (WT < 150 kg, CrCl > 10-29 mL/min) *Enoxaparin/Lovenox 30 mg SQ BID (WT < 150 kg, CrCl > 30 mL/min) AND *Sequential Compression Device (SCD) Assessment and Plan - Plan A/P - abdominal pain/nausea,vomiting with history of alcohol abuse- has improved mildly elevated lipase but with no acute abnormality on CT abdomen. will start on liquid diet and advance the diet slowly. -minimal elevated troponin with no reported chest pain/ history of CAD continue aspirin- of note had a recent cariology evaluation and didn't recommend any further evaluation. -alcohol abuse; continue CIWA protocol- counselled on drinking cessation. -lactic acidosis- continue IV fluid- repeat the lactic acid level. -hypokalemia; will repeat the level and replace as needed. -DVT prophylaxis; subq Heparin. Discussed Condition With: the patient. Discharge Planning: home in a day or two. H&P: Quality - VTE Deep Vein Thrombosis/Pulmonary Embolism Present on Admission: No
[2018-07-21 09:39] LABS: Baso # (Auto) 0.2 th/mm3 (0.0-0.2); Baso % (Auto) 1.2 % (0.0-2.0); Eos % (Auto) 0.1 % (0.0-4.0); Hematocrit 41.4 % (39.0-51.0); Hemoglobin 14.6 gm/dL (13.0-17.0); Lymph # (Auto) 4.2 th/mm3 (1.0-4.8); Lymph % (Auto) 23.6 % (9.0-44.0); Mean Corpuscular HGB Conc 35.2 % (32.0-36.0); Mean Corpuscular Volume 99.3 fL (80.0-100.0); Mean Platelet Volume 11.8 fL (7.0-11.0); Mono % (Auto) 5.7 % (0.0-8.0); Neut # (Auto) 12.6 th/mm3 (1.8-7.7); Neut % (Auto) 69.4 % (16.0-70.0); Platelet Count 227 th/mm3 (150-450); Red Blood Count 4.17 mil/mm3 (4.50-5.90); Red Cell Distribution Width 14.2 % (11.6-17.2)
--- NOTE | 2018-07-21 09:45 | ECG ---
Date Performed: 07/21/2018 Time Performed: 09:11:07 PTAGE: 52 years EKG: Sinus rhythm ANTEROSEPTAL MYOCARDIAL INFARCTION No significant change from prior electrocardiogram. PREVIOUS TRACING : 07/21/2018 02.18 DOCTOR: Hardeep Garay Interpretating Date/Time 07/21/2018 09:45:21
[2018-07-21 10:11] LABS: Troponin I 0.07 ng/mL (0.02-0.05)
[2018-07-21 10:36] LABS: Alanine Aminotransferase 99 U/L (12-78); Albumin 2.8 g/dL (3.4-5.0); Alkaline Phosphatase 155 U/L (45-117); Anion Gap 11 meq/L (5-15); Aspartate Aminotransferase 118 U/L (15-37); Blood Urea Nitrogen 9 mg/dL (7-18); Calcium 7.1 mg/dL (8.5-10.1); Carbon Dioxide 27.3 meq/L (21.0-32.0); Chloride 99 meq/L (98-107); Glomerular Filtration Rate Greater Than 89 mL/min (>89); Glucose,Random 155 mg/dL (74-106); Lipase 1143 U/L (73-393); Potassium 3.2 meq/L (3.5-5.1); Sodium 137 meq/L (136-145); Total Protein 7.4 g/dL (6.4-8.2)
[2018-07-21] MEDS: Senna/Docusate Sodium 8.6/50 MG Tablet PO SCH ×2 (10:41→20:44)
[2018-07-21] MEDS ORDERED: Calcium Gluconate Inj 1 GM in Sodium Chlor 0.9% Inj 100 ML IV.SIG ONE (12:00)
--- NOTE | 2018-07-21 12:17 | US ---
EXAM DATE: 07/21/2018 12:00 AM EDT AGE/SEX: 52 years / Male INDICATIONS: Nausea and vomiting. CLINICAL DATA: This is the patient's initial encounter. Patient reports that signs and symptoms have been present for 1 day and indicates a pain score of 3/10. MEDICAL/SURGICAL HISTORY: Chronic obstructive pulmonary disease. Hypertension. Myocardial inf arction. . Gastric surgery. Herniorrhaphy. COMPARISON: [facility], CT ABDOMEN & PELVIS W CONTRAST, 07/21/2018. . MEASUREMENTS: Liver:__ 21.8 cm. Common Bile Duct:__ 6mm. FINDINGS: Liver: Increased echotexture without focal lesion or ductal dilation. Portal Vein: Hepatopedal flow seen in portal vein. Common Duct: No intraluminal mass or stone visualized. Gallbladder: Demonstrates no wall thickening or pericholecystic fluid. No stones visualized. Small a mount sludge noted dependently. Pancreas: Not well visualized. Right Kidney: Normal echotexture and cortical thickness. No mass or hydronephrosis. Other: None. CONCLUSION: 1. Hepatomegaly with increased hepatic echogenicity consistent with hepatic steatosis versus medical liver disease. 2. Small amount of gallbladder sludge. Otherwise, no cholelithiasis or sonographic evidence for acut e cholecystitis. 3. Limited evaluation of the pancreas due to overlying bowel gas. Electronically signed by: Julius Mansfield MD 07/21/2018 12:16 PM EDT
[2018-07-21 20:51] LABS: Hemoglobin A1c 7.4 % (4.3-6.0)
[2018-07-22] MEDS: Sod Chloride 0.9% Inj 1,000 ML IV.CONT SCH ×2 (00:58→15:06)
[2018-07-22] MEDS: Heparin - SQ 10,000 UNITS/ML Vial SQ SCH ×3 (05:52→19:53)
[2018-07-22 06:47] LABS: Baso # (Auto) 0.3 th/mm3 (0.0-0.2); Baso % (Auto) 1.8 % (0.0-2.0); Eos # (Auto) 0.3 th/mm3 (0.0-0.4); Eos % (Auto) 1.7 % (0.0-4.0); Hematocrit 41.2 % (39.0-51.0); Hemoglobin 13.9 gm/dL (13.0-17.0); Lymph % (Auto) 30.3 % (9.0-44.0); Mean Corpuscular HGB Conc 33.8 % (32.0-36.0); Mean Corpuscular Hemoglobin 34.3 pg (27.0-34.0); Mean Corpuscular Volume 101.7 fL (80.0-100.0); Mean Platelet Volume 11.7 fL (7.0-11.0); Mono # (Auto) 0.9 th/mm3 (0.0-0.9); Mono % (Auto) 5.2 % (0.0-8.0); Neut # (Auto) 9.9 th/mm3 (1.8-7.7); Platelet Count 202 th/mm3 (150-450); Red Blood Count 4.05 mil/mm3 (4.50-5.90); Red Cell Distribution Width 13.9 % (11.6-17.2); White Blood Count 16.4 th/mm3 (4.0-11.0)
[2018-07-22 07:00] LABS: Chloride 103 meq/L (98-107); Potassium 3.4 meq/L (3.5-5.1); Sodium 139 meq/L (136-145)
[2018-07-22 07:14] LABS: Alanine Aminotransferase 91 U/L (12-78); Albumin 2.7 g/dL (3.4-5.0); Alkaline Phosphatase 147 U/L (45-117); Anion Gap 11 meq/L (5-15); Aspartate Aminotransferase 148 U/L (15-37); Blood Urea Nitrogen 7 mg/dL (7-18); Calcium 7.3 mg/dL (8.5-10.1); Carbon Dioxide 25.4 meq/L (21.0-32.0); Glomerular Filtration Rate Greater Than 89 mL/min (>89); Glucose,Random 135 mg/dL (74-106); Lipase 593 U/L (73-393); Total Protein 7.2 g/dL (6.4-8.2)
--- NOTE | 2018-07-22 08:14 | P.PNIM ---
Subjective Interval history: f/u; pancreatitis in no acute distress. complaining of epigastric pain but with no nausea or emesis. no fever. reportedly had a fall last night. d/w the RN. Physical Exam Vital signs: Vital Signs 07/21/18 12:00 07/21/18 16:00 07/21/18 17:43 Temperature 97.2 F L 97.0 F L Pulse Rate 84 83 Respiratory Rate 16 16 Blood Pressure 138/88 175/112 H 148/88 H Pulse Oximetry 94 L 95 07/21/18 20:00 07/21/18 20:02 07/21/18 21:36 Temperature 98.1 F 98.7 F Pulse Rate 84 86 Respiratory Rate 18 18 Blood Pressure 173/113 H 155/97 H Pulse Oximetry 96 96 93 L 07/22/18 00:00 07/22/18 01:06 07/22/18 01:30 Temperature 98.8 F 98.8 F Pulse Rate 86 89 89 Respiratory Rate 18 18 Blood Pressure 149/94 H 149/94 H Pulse Oximetry 95 95 07/22/18 02:30 07/22/18 03:30 07/22/18 04:00 Temperature 98.0 F 98.2 F 97.7 F Pulse Rate 73 80 82 Respiratory Rate 18 18 Blood Pressure 123/87 132/82 137/96 H Pulse Oximetry 94 L 07/22/18 04:30 Temperature 97.8 F Pulse Rate 76 Respiratory Rate 20 Blood Pressure 118/84 Pulse Oximetry Intake & Output 07/21/18 07/22/18 07/22/18 18:59 06:59 18:59 Intake Total 3110 / 3110 960 / 960 Output Total 1999 Balance 3110 / 3110 -1040 / -1040 Weight 79.7 kg Intake: IV 3110 / 3110 NS Inj 1,000 ML @ 100 mls/hr IV 1999 .CONT .Q10H DONNY Rx#:[id number] Calcium Gluconate Inj 1 GM In 110 / 110 NS Inj 100 ML @ 110 mls/hr IV. SIG ONCE ONE Rx#:[id number] NS Inj 1,000 ML @ Wide Open IV. 1000 / 1000 SIG BOLUS DONNY Rx#:[id number] Oral 960 / 960 Output: Urine 1999 Other: # Voids 3 - Constitutional no acute distress - Routine Respiratory Exam Present: CTA bilaterally - Routine Cardiovascular Exam Present: RRR - Routine Abdominal Exam Present: soft, tenderness (epigastric tenderness.) - Routine Extremities Exam Comments: no pedal edema. - Routine Neurological Exam Present: alert, oriented X3 Results - Labs CBC & Chem 7: 07/22/18 06:12 07/22/18 06:12 Laboratory Results - last 24 hr 07/21/18 07/21/18 07/21/18 09:15 09:15 09:15 CBC w Diff Slide review pending WBC 18.0 H RBC 4.17 L Hgb 14.6 D Hct 41.4 MCV 99.3 MCH 35.0 H MCHC 35.2 RDW 14.2 Plt Count 227 MPV 11.8 H Neut % (Auto) 69.4 Lymph % (Auto) 23.6 [place] % (Auto) 5.7 Eos % (Auto) 0.1 Baso % (Auto) 1.2 Neut # (Auto) 12.6 H Lymph # (Auto) 4.2 [place] # (Auto) 1.0 H Eos # (Auto) 0.0 Baso # (Auto) 0.2 WBC Differential . Diff Scan Auto diff confirmed Differential Comment . Sodium 137 Potassium 3.2 L Chloride 99 D Carbon Dioxide 27.3 Anion Gap 11 BUN 9 Creatinine 0.79 Estimated GFR Greater than 89 Random Glucose 155 H Hemoglobin A1c Lactic Acid Calcium 7.1 L* D Prot Corrected Calcium 7.0 L* Total Bilirubin 1.6 H AST 118 H ALT 99 H Alkaline Phosphatase 155 H Total Creatine Kinase 131 Troponin I 0.07 H Total Protein 7.4 D Albumin 2.8 L D Lipase 1143 H 07/21/18 07/21/18 07/22/18 09:15 09:30 06:12 CBC w Diff Slide review pending WBC 16.4 H RBC 4.05 L Hgb 13.9 Hct 41.2 MCV 101.7 H MCH 34.3 H MCHC 33.8 RDW 13.9 Plt Count 202 MPV 11.7 H Neut % (Auto) 61.0 Lymph % (Auto) 30.3 [place] % (Auto) 5.2 Eos % (Auto) 1.7 Baso % (Auto) 1.8 Neut # (Auto) 9.9 H Lymph # (Auto) 5.0 H [place] # (Auto) 0.9 Eos # (Auto) 0.3 Baso # (Auto) 0.3 H WBC Differential . Diff Scan Auto diff confirmed Differential Comment . Sodium Potassium Chloride Carbon Dioxide Anion Gap BUN Creatinine Estimated GFR Random Glucose Hemoglobin A1c 7.4 H Lactic Acid 1.4 Calcium Prot Corrected Calcium Total Bilirubin AST ALT Alkaline Phosphatase Total Creatine Kinase Troponin I Total Protein Albumin Lipase 07/22/18 06:12 CBC w Diff WBC RBC Hgb Hct MCV MCH MCHC RDW Plt Count MPV Neut % (Auto) Lymph % (Auto) [place] % (Auto) Eos % (Auto) Baso % (Auto) Neut # (Auto) Lymph # (Auto) [place] # (Auto) Eos # (Auto) Baso # (Auto) WBC Differential Diff Scan Differential Comment Sodium 139 Potassium 3.4 L Chloride 103 Carbon Dioxide 25.4 Anion Gap 11 BUN 7 Creatinine 0.65 Estimated GFR Greater than 89 Random Glucose 135 H Hemoglobin A1c Lactic Acid Calcium 7.3 L* Prot Corrected Calcium 7.3 L* Total Bilirubin 1.5 H AST 148 H ALT 91 H Alkaline Phosphatase 147 H Total Creatine Kinase Troponin I Total Protein 7.2 Albumin 2.7 L Lipase 593 H - Imaging Impressions Gallbladder Ultrasound 07/21/18 00:00 CONCLUSION: 1. Hepatomegaly with increased hepatic echogenicity consistent with hepatic steatosis versus medical liver disease. 2. Small amount of gallbladder sludge. Otherwise, no cholelithiasis or sonographic evidence for acute cholecystitis. 3. Limited evaluation of the pancreas due to overlying bowel gas. Assessment and Plan - Plan A/P - acute pancreatitis- alcohol induced- still with some epigastric pain. GB sonogram with no gallstone continue on liquid diet diet- will advance the diet slowly. -minimal elevated troponin with no reported chest pain/with history of CAD continue aspirin- of note had a recent cardiology evaluation and didn't recommend any further evaluation. -alcohol abuse; continue [facility] protocol- counselled on drinking cessation. -lactic acidosis-resolved- continue IV fluid- -hypokalemia/hypocalcemia; will replace and monitor. -DVT prophylaxis; subq Heparin. Discharge Planning: home when pain is better.
[2018-07-22] MEDS ORDERED: Dextrose 50% in Water 50 ML Vial IV.PUSH PRN (08:15)
[2018-07-22] MEDS: Senna/Docusate Sodium 8.6/50 MG Tablet PO SCH ×2 (08:39→20:08)
[2018-07-22] MEDS ORDERED: Calcium Gluconate Inj 1 GM in Sodium Chlor 0.9% Inj 100 ML IV.SIG ONE (09:00)
[2018-07-22] MEDS: Insulin NovoLOG Aspart Correctional Sugar Inj SQ SCH ×3 (12:42→20:07)
[2018-07-22] MEDS: LORazepam 1 MG Tablet PO PRN (21:51)
[2018-07-23] MEDS: Sod Chloride 0.9% Inj 1,000 ML IV.CONT SCH ×2 (04:01→16:15)
[2018-07-23] MEDS: Heparin - SQ 10,000 UNITS/ML Vial SQ SCH ×3 (05:45→21:10)
[2018-07-23 06:39] LABS: Baso # (Auto) 0.2 th/mm3 (0.0-0.2); Baso % (Auto) 1.7 % (0.0-2.0); Eos # (Auto) 0.6 th/mm3 (0.0-0.4); Eos % (Auto) 4.2 % (0.0-4.0); Hematocrit 40.4 % (39.0-51.0); Hemoglobin 13.6 gm/dL (13.0-17.0); Lymph # (Auto) 4.5 th/mm3 (1.0-4.8); Lymph % (Auto) 33.2 % (9.0-44.0); Mean Corpuscular HGB Conc 33.6 % (32.0-36.0); Mean Corpuscular Hemoglobin 34.2 pg (27.0-34.0); Mean Corpuscular Volume 101.9 fL (80.0-100.0); Mono # (Auto) 0.5 th/mm3 (0.0-0.9); Mono % (Auto) 3.6 % (0.0-8.0); Neut # (Auto) 7.7 th/mm3 (1.8-7.7); Neut % (Auto) 57.3 % (16.0-70.0); Platelet Count 191 th/mm3 (150-450); Red Blood Count 3.97 mil/mm3 (4.50-5.90); Red Cell Distribution Width 13.9 % (11.6-17.2); White Blood Count 13.5 th/mm3 (4.0-11.0)
[2018-07-23 06:52] LABS: Chloride 105 meq/L (98-107); Potassium 3.4 meq/L (3.5-5.1); Sodium 138 meq/L (136-145)
[2018-07-23 07:16] LABS: Alanine Aminotransferase 124 U/L (12-78); Albumin 2.6 g/dL (3.4-5.0); Alkaline Phosphatase 155 U/L (45-117); Anion Gap 8 meq/L (5-15); Aspartate Aminotransferase 243 U/L (15-37); Blood Urea Nitrogen 8 mg/dL (7-18); Calcium 7.4 mg/dL (8.5-10.1); Carbon Dioxide 24.7 meq/L (21.0-32.0); Glomerular Filtration Rate Greater Than 89 mL/min (>89); Glucose,Random 107 mg/dL (74-106); Lipase 399 U/L (73-393)
[2018-07-23] MEDS: Senna/Docusate Sodium 8.6/50 MG Tablet PO SCH ×2 (08:18→21:09)
[2018-07-23] MEDS: Insulin NovoLOG Aspart Correctional Sugar Inj SQ SCH ×4 (08:19→21:02)
--- NOTE | 2018-07-23 09:14 | P.PNIM ---
Subjective Interval history: f/u; pancreatitis in no acute distress. abdominal pain is better. no nausea,vomiting or fever. d/w the RN. Physical Exam Vital signs: Vital Signs 07/22/18 12:00 07/22/18 14:18 07/22/18 16:00 Temperature 97.6 F 97.8 F Pulse Rate 80 74 86 Respiratory Rate 19 22 Blood Pressure 177/103 H 161/102 H Pulse Oximetry 95 96 07/22/18 17:16 07/22/18 19:07 07/22/18 20:00 Temperature 99.1 F Pulse Rate 87 87 Respiratory Rate 20 Blood Pressure 142/78 H 180/110 H Pulse Oximetry 94 L 07/22/18 20:02 07/22/18 21:15 07/23/18 00:00 Temperature 96.7 F L Pulse Rate 80 74 100 H Respiratory Rate 20 Blood Pressure 140/100 H Pulse Oximetry 97 07/23/18 00:50 07/23/18 04:00 07/23/18 04:07 Temperature 97.2 F L Pulse Rate 95 H 74 71 Respiratory Rate 18 Blood Pressure 160/90 H Pulse Oximetry 94 L 07/23/18 08:00 Temperature 98.4 F Pulse Rate 80 Respiratory Rate 19 Blood Pressure 150/100 H Pulse Oximetry 99 Intake & Output 07/22/18 07/23/18 07/23/18 18:59 06:59 18:59 Intake Total 1710 / 1710 2110 / 2110 240 / 240 Output Total 741 / 741 1475 / 1475 Balance 969 / 969 635 / 635 240 / 240 Weight 85.3 kg Intake: IV 1110 / 1110 1150 / 1150 NS Inj 1,000 ML @ 75 mls/hr IV. 1000 / 1000 1150 / 1150 CONT .[id number] DONNY Rx#: [id number] Calcium Gluconate Inj 1 GM In 110 / 110 NS Inj 100 ML @ 110 mls/hr IV. SIG ONCE ONE Rx#:[id number] Oral 600 / 600 960 / 960 240 / 240 Output: Urine 740 / 740 1475 / 1475 Stool Other: # Voids 3 2 Date of Last Bowel Movement 07/22/18 07/23/18 # Bowel Movements 2 1 - Constitutional no acute distress - Routine Respiratory Exam Present: CTA bilaterally - Routine Cardiovascular Exam Present: RRR - Routine Abdominal Exam Present: soft - Routine Extremities Exam Comments: no pedal edema. - Routine Neurological Exam Present: alert, oriented X3 Results - Labs CBC & Chem 7: 07/23/18 05:55 07/23/18 05:55 Laboratory Results - last 24 hr 07/22/18 07/22/18 07/22/18 06:12 16:29 20:06 CBC w Diff WBC RBC Hgb Hct MCV MCH MCHC RDW Plt Count MPV Neut % (Auto) Lymph % (Auto) [place] % (Auto) Eos % (Auto) Baso % (Auto) Neut # (Auto) Lymph # (Auto) [place] # (Auto) Eos # (Auto) Baso # (Auto) WBC Differential Differential Comment Sodium Potassium Chloride Carbon Dioxide Anion Gap BUN Creatinine Estimated GFR POC Glucose 172 H 172 H Random Glucose Calcium Prot Corrected Calcium Magnesium 1.9 D Total Bilirubin AST ALT Alkaline Phosphatase Total Protein Albumin Lipase 07/23/18 07/23/18 07/23/18 05:55 05:55 08:19 CBC w Diff Auto diff final WBC 13.5 H RBC 3.97 L Hgb 13.6 Hct 40.4 MCV 101.9 H MCH 34.2 H MCHC 33.6 RDW 13.9 Plt Count 191 MPV 12.0 H Neut % (Auto) 57.3 Lymph % (Auto) 33.2 [place] % (Auto) 3.6 Eos % (Auto) 4.2 H Baso % (Auto) 1.7 Neut # (Auto) 7.7 Lymph # (Auto) 4.5 [place] # (Auto) 0.5 Eos # (Auto) 0.6 H Baso # (Auto) 0.2 WBC Differential . Differential Comment . Sodium 138 Potassium 3.4 L Chloride 105 Carbon Dioxide 24.7 Anion Gap 8 BUN 8 Creatinine 0.55 L Estimated GFR Greater than 89 POC Glucose 107 Random Glucose 107 H Calcium 7.4 L* Prot Corrected Calcium 7.5 L Magnesium Total Bilirubin 1.3 H AST 243 H ALT 124 H Alkaline Phosphatase 155 H Total Protein 7.0 Albumin 2.6 L Lipase 399 H Assessment and Plan - Plan A/P - acute pancreatitis- alcohol induced- still with some epigastric pain- improving slowly. GB sonogram with no gallstone advance to full liquid diet today.- will advance the diet slowly. -minimal elevated troponin with no reported chest pain/with history of CAD continue aspirin- of note had a recent cardiology evaluation and didn't recommend any further evaluation. -alcohol abuse; continue CIWA protocol- counselled on drinking cessation. -lactic acidosis-resolved- continue IV fluid- -hypokalemia/hypocalcemia; improved. -diabetes mellitus; continue accu-check with [facility]- consult clinical trial educator. -DVT prophylaxis; subq Heparin. Discharge Planning: home when pain is better; within the next 24-48 hrs.
[2018-07-23] MEDS: Morphine Sulfate Inj 2 MG/ML Vial IV.PUSH PRN ×3 (10:06→21:11)
[2018-07-24] MEDS: Morphine Sulfate Inj 2 MG/ML Vial IV.PUSH PRN ×4 (01:22→13:01)
[2018-07-24] MEDS: Heparin - SQ 10,000 UNITS/ML Vial SQ SCH ×2 (04:45→12:24)
[2018-07-24] MEDS: Sod Chloride 0.9% Inj 1,000 ML IV.SIG SCH (04:48)
[2018-07-24] MEDS: Sod Chloride 0.9% Inj 1,000 ML IV.CONT SCH (05:43)
[2018-07-24 06:28] VITALS: RESP 18
[2018-07-24 07:43] LABS: Chloride 103 meq/L (98-107); Sodium 137 meq/L (136-145)
[2018-07-24 07:51] LABS: Albumin 2.5 g/dL (3.4-5.0); Anion Gap 8 meq/L (5-15); Calcium 7.8 mg/dL (8.5-10.1); Carbon Dioxide 25.6 meq/L (21.0-32.0); Glucose,Random 171 mg/dL (74-106); Lipase 281 U/L (73-393)
[2018-07-24 07:52] LABS: Blood Urea Nitrogen 5 mg/dL (7-18)
[2018-07-24 07:53] LABS: Aspartate Aminotransferase 196 U/L (15-37)
[2018-07-24 07:54] LABS: Alanine Aminotransferase 133 U/L (12-78); Glomerular Filtration Rate Greater Than 89 mL/min (>89)
[2018-07-24 07:55] LABS: Total Protein 6.6 g/dL (6.4-8.2)
[2018-07-24 07:56] LABS: Alkaline Phosphatase 157 U/L (45-117)
--- NOTE | 2018-07-24 08:21 | P.PNIM ---
Subjective Interval history: f/u; acute pancreatitis clinically improving. abdominal pain has subsided and tolerated the liquid diet. d/w the RN. Physical Exam Vital signs: Vital Signs 07/23/18 12:00 07/23/18 16:00 07/23/18 17:29 Temperature 98.1 F 97.5 F L Pulse Rate 80 71 Respiratory Rate 19 19 Blood Pressure 153/90 H 163/103 H 148/88 H Pulse Oximetry 95 96 07/23/18 20:00 07/23/18 23:04 07/24/18 00:00 Temperature 97.0 F L 98.4 F Pulse Rate 76 76 62 Respiratory Rate 20 20 Blood Pressure 164/99 H 153/94 H Pulse Oximetry 97 95 07/24/18 04:00 07/24/18 04:55 07/24/18 06:27 Temperature 97.2 F L Pulse Rate 75 71 Respiratory Rate 20 18 Blood Pressure 139/94 H Pulse Oximetry 94 L Intake & Output 07/23/18 07/24/18 07/24/18 18:59 06:59 18:59 Intake Total 1720 / 1720 1480 / 1480 Output Total 800 / 800 Balance 920 / 920 1480 / 1480 Weight 85.4 kg Intake: IV 1000 / 1000 1000 / 1000 NS Inj 1,000 ML @ 75 mls/hr IV. 1000 / 1000 1000 / 1000 CONT .[id number] DONNY Rx#: [id number] Oral 720 / 720 480 / 480 Output: Urine 800 / 800 Other: # Voids 2 3 Date of Last Bowel Movement 07/23/18 07/22/18 # Bowel Movements 1 - Constitutional no acute distress - Routine Respiratory Exam Present: CTA bilaterally - Routine Cardiovascular Exam Present: RRR - Routine Abdominal Exam Present: soft - Routine Extremities Exam Comments: no pedal edema. - Routine Neurological Exam Present: alert, oriented X3 Results - Labs CBC & Chem 7: 07/23/18 05:55 07/24/18 07:00 Laboratory Results - last 24 hr 07/23/18 07/23/18 07/23/18 08:19 12:55 16:13 Sodium Potassium Chloride Carbon Dioxide Anion Gap BUN Creatinine Estimated GFR POC Glucose 107 148 H 123 H Random Glucose Calcium Total Bilirubin AST ALT Alkaline Phosphatase Total Protein Albumin Lipase 07/23/18 07/24/18 07/24/18 21:01 07:00 08:13 Sodium 137 Potassium 3.0 L Chloride 103 Carbon Dioxide 25.6 Anion Gap 8 BUN 5 L Creatinine 0.58 L Estimated GFR Greater than 89 POC Glucose 167 H 192 H Random Glucose 171 H Calcium 7.8 L Total Bilirubin 1.0 AST 196 H ALT 133 H Alkaline Phosphatase 157 H Total Protein 6.6 Albumin 2.5 L Lipase 281 Assessment and Plan - Plan A/P - acute pancreatitis- alcohol induced- still with some epigastric pain- clinically improved. GB sonogram with no gallstone advance to diabetic diet diet today.- -minimal elevated troponin with no reported chest pain/with history of CAD continue aspirin- of note had a recent cardiology evaluation and didn't recommend any further evaluation. -alcohol abuse; continue CIWA protocol- counselled on drinking cessation. -lactic acidosis-resolved- -hypokalemia/hypocalcemia; replace as needed. -diabetes mellitus; continue accu-check with [facility]- diabetic education provided. the patient wants to have a f/u with his pcp before starting hypoglycemic agents; f/u as outpatient. -DVT prophylaxis; subq Heparin. Discharge Planning: home later today if tolerates the diet- pending potassium level. see med list. f/u; pcp. d/w the patient and RN.
--- NOTE | 2018-07-24 08:24 | P.DS ---
Date of admission: 07/21/18 14:02 Primary care physician: [facility] Brief History from admission: patient is a 52 y/o male with history of CAD, pancreatitis, alcohol abuse who presented to ER with abdominal pain. he says that the pain is periumbilical and has been going on for three days. pain is more or less constant with some radiation to the back.he had some nausea and vomiting for the past three days. he denies any fever, chills. he denies any chest pain. his last drink was about a week ago. pain was mild to moderate at the time of my evaluation. DS: Summary Hospital Course: patient was admitted with acute pancreatitis. he was started on supportive care with IV fluid and pain control. his electrolytes were replaced as needed. he was found to have diabetes mellitus for which diabetic education was provided. his clinical condition improved. he will have a f/u with his pcp upon discharge. - Time Spent with Patient Total time spent providing and/or coordinating discharge services: Less than 30 minutes - Quality: VTE Deep Vein Thrombosis/Pulmonary Embolism Present on Admission: No Exam Vital signs: Vital Signs 07/23/18 12:00 07/23/18 16:00 07/23/18 17:29 Temperature 98.1 F 97.5 F L Pulse Rate 80 71 Respiratory Rate 19 19 Blood Pressure 153/90 H 163/103 H 148/88 H Pulse Oximetry 95 96 07/23/18 20:00 07/23/18 23:04 07/24/18 00:00 Temperature 97.0 F L 98.4 F Pulse Rate 76 76 62 Respiratory Rate 20 20 Blood Pressure 164/99 H 153/94 H Pulse Oximetry 97 95 07/24/18 04:00 07/24/18 04:55 07/24/18 06:27 Temperature 97.2 F L Pulse Rate 75 71 Respiratory Rate 20 18 Blood Pressure 139/94 H Pulse Oximetry 94 L Intake & Output 07/23/18 07/24/18 07/24/18 18:59 06:59 18:59 Intake Total 1720 / 1720 1480 / 1480 Output Total 800 / 800 Balance 920 / 920 1480 / 1480 Weight 85.4 kg Intake: IV 1000 / 1000 1000 / 1000 NS Inj 1,000 ML @ 75 mls/hr IV. 1000 / 1000 1000 / 1000 CONT .[id number] DONNY Rx#: [id number] Oral 720 / 720 480 / 480 Output: Urine 800 / 800 Other: # Voids 2 3 Date of Last Bowel Movement 07/23/18 07/22/18 # Bowel Movements 1 - Constitutional no acute distress - Routine Respiratory Exam Present: CTA bilaterally - Routine Cardiovascular Exam Present: RRR - Routine Abdominal Exam Present: soft - Routine Extremities Exam Comments: no pedal edema. - Routine Neurological Exam Present: alert, oriented X3 Results Procedures completed during hospitalization: none. Labs on day of discharge: Labs from last 24 hours 07/24/18 07/24/18 07/23/18 08:13 07:00 21:01 Sodium 137 Potassium 3.0 L Chloride 103 Carbon Dioxide 25.6 Anion Gap 8 BUN 5 L Creatinine 0.58 L Estimated GFR Greater than 89 POC Glucose 192 H 167 H Random Glucose 171 H Calcium 7.8 L Total Bilirubin 1.0 AST 196 H ALT 133 H Alkaline Phosphatase 157 H Total Protein 6.6 Albumin 2.5 L Lipase 281 07/23/18 07/23/18 07/23/18 16:13 12:55 08:19 Sodium Potassium Chloride Carbon Dioxide Anion Gap BUN Creatinine Estimated GFR POC Glucose 123 H 148 H 107 Random Glucose Calcium Total Bilirubin AST ALT Alkaline Phosphatase Total Protein Albumin Lipase - Impressions ITS Impressions Gallbladder Ultrasound 07/21/18 00:00 CONCLUSION: 1. Hepatomegaly with increased hepatic echogenicity consistent with hepatic steatosis versus medical liver disease. 2. Small amount of gallbladder sludge. Otherwise, no cholelithiasis or sonographic evidence for acute cholecystitis. 3. Limited evaluation of the pancreas due to overlying bowel gas. Abdomen/Pelvis CT 07/21/18 00:26 CONCLUSION: 1. Hepatic steatosis. 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 3. The previously seen induration around the pancreas has resolved. 4. Mild hiatal hernia. 5. 4 midline hernias as described above. 2 of these contain bowel. Significant bowel dilatation to suggest obstruction is not seen. 6. Colonic diverticula without inflammatory change. 7. Stable 2 cm left adrenal gland mass. This is nonspecific. Chest X-Ray 07/21/18 00:26 CONCLUSION: No acute cardiopulmonary process. Discharge Plan - Discharge Condition Condition: Stable - Physicians Team Primary Care Provider: [facility],Physician 's Attending Provider: Basil Carranza
[2018-07-24] MEDS: Senna/Docusate Sodium 8.6/50 MG Tablet PO SCH (09:02)
[2018-07-24 09:46] VITALS: BP 154/94; PULSE 74; TEMP 97.9; O2SAT 96
[2018-07-24] MEDS: Insulin NovoLOG Aspart Correctional Sugar Inj SQ SCH ×2 (10:49→12:25)
--- NOTE | 2018-07-24 13:29 | P.PNADD ---
Addendum to Inpatient Note Reason for Addendum: Additional Documentation (hypokalemia improved. he tolerated the solid food well and wants to go home today. he will be discharged with f/u with his pcp.)
== END 2018-07-24 13:50 | disposition home or self-care (01) ==
LOC: PHEDA 00:02 → PHED 00:02 → PH3 05:17
PROVIDERS: ADMIT Internal Medicine; ATTEND Internal Medicine

== ENCOUNTER 2018-08-17 12:14 | Inpatient (IN) ==
[2018-08-17] MEDS ORDERED: Morphine Sulfate Inj 2 MG/ML Vial IV.PUSH ONE (12:24)
[2018-08-17] MEDS ORDERED: Lidocaine PF 1% Inj 30 ML Vial ONE (12:27)
[2018-08-17] MEDS ORDERED: Heparin/NS PF Inj 500 ML ONE (12:27)
[2018-08-17] MEDS ORDERED: Heparin 10,000 UNITS/10 ML Vial (for IV use) ONE ×2 (12:28)
[2018-08-17] MEDS ORDERED: Heparin 10,000 UNITS/10 ML Vial (for IV use) IV.PUSH STA (12:28)
[2018-08-17 12:44] LABS: Baso # (Auto) 0.1 th/mm3 (0.0-0.2); Baso % (Auto) 0.4 % (0.0-2.0); Hematocrit 49.2 % (39.0-51.0); Hemoglobin 17.1 gm/dL (13.0-17.0); Lymph # (Auto) 1.1 th/mm3 (1.0-4.8); Mean Corpuscular HGB Conc 34.8 % (32.0-36.0); Mean Corpuscular Hemoglobin 35.2 pg (27.0-34.0); Mean Corpuscular Volume 101.2 fL (80.0-100.0); Mean Platelet Volume 10.7 fL (7.0-11.0); Mono # (Auto) 1.1 th/mm3 (0.0-0.9); Mono % (Auto) 6.3 % (0.0-8.0); Neut # (Auto) 15.2 th/mm3 (1.8-7.7); Neut % (Auto) 87.3 % (16.0-70.0); Platelet Count 330 th/mm3 (150-450); Red Blood Count 4.86 mil/mm3 (4.50-5.90); Red Cell Distribution Width 15.2 % (11.6-17.2); White Blood Count 17.5 th/mm3 (4.0-11.0)
--- NOTE | 2018-08-17 12:44 | ED ---
HPI General Chief complaint: Abdominal Pain Stated complaint: Cardiac Time Seen by Provider: 08/17/18 12:29 History of Present Illness HPI narrative: Patient 52-year-old male presents emergency department for evaluation of left upper quadrant epigastric abdominal pain which started about 11 AM this morning. Patient has a history of cigarette smoking, prediabetes, hypertension. He states he had a heart attack sometime ago. He also has had recurrent admissions to the hospital for alcohol induced pancreatitis. His last admission was the end of June. He denies any chest pain denies any shortness of breath mild nausea no vomiting. Related Data Home Medications Medication Instructions Recorded Confirmed ondansetron [Zofran ODT] 4 mg PO QID PRN 07/21/18 08/17/18 Previous Rx's Medication Instructions Recorded aspirin 81 mg PO DAILY 30 Days #30 tab 07/24/18 multivitamin [Daily Multi-Vitamin] 1 tab PO DAILY 30 Days #30 tab 07/24/18 thiamine HCl (vitamin B1) 100 mg PO DAILY 30 Days #30 tab 07/24/18 Allergies Allergy/AdvReac Type Severity Reaction Status Date / Time No Known Allergies Allergy Verified 08/17/18 12:18 Review of Systems ROS: all other systems reviewed are negative [facility] Social History Social History Substance History: Active Abuse Second Hand Smoke Exposure: No Smoking Status: Current every day smoker Tobacco Type: Cigarettes Packs Per Day: 1 Cigarettes Per Day: 20.0 How Often Do You Have a Drink Containing Alcohol: 4 or more times a week Recent Travel in [facility] within the Last 8 Weeks: No Recent Out of Country Travel within the Last 8 Weeks: No Substance Abuse Detail Marijuana: Substance Use Status: Active Route Used Substance Abuse: Inhalation Reason for Use: Calm Down Immunization History Tetanus Immunization: >5 Years Exam Narrative Exam Narrative: GENERAL: Appears uncomfortable. SKIN: Focused skin assessment warm/dry. HEAD: Atraumatic. Normocephalic. EYES: Pupils equal and round. No scleral icterus. No injection or drainage. ENT: No nasal bleeding or discharge. Mucous membranes pink and moist. NECK: Trachea midline. No JVD. CARDIOVASCULAR: Regular rhythm with tachycardia, no murmurs gallops or rubs, 2+ bilateral pulses in all 4 extremities. No murmur appreciated. RESPIRATORY: No accessory muscle use. Clear to auscultation. Breath sounds equal bilaterally. GASTROINTESTINAL: Abdomen soft, moderately tender in the left upper quadrant left flank and epigastric region. There is no rebound no percussive tenderness. There is midline hernia which is easily reduced and soft. No overlying skin changes., nondistended. Hepatic and splenic margins not palpable. MUSCULOSKELETAL: No obvious deformities. No clubbing. No cyanosis. No edema. NEUROLOGICAL: Awake and alert. No obvious cranial nerve deficits. Motor grossly within normal limits. Normal speech. PSYCHIATRIC: Appropriate mood and affect; insight and judgment normal. Course Initial Documented Vital Signs Temperature 98.5 F 08/17/18 12:15 Pulse Rate 140 H 08/17/18 12:15 Respiratory Rate 24 08/17/18 12:15 Blood Pressure 162/121 H 08/17/18 12:15 Pulse Oximetry 97 08/17/18 12:15 Last Documented Vital Signs Temperature 98.5 F 08/17/18 12:15 Pulse Rate 121 H 08/17/18 14:18 Respiratory Rate 16 08/17/18 14:18 Blood Pressure 143/98 H 08/17/18 14:18 Pulse Oximetry 98 08/17/18 14:18 Medical Decision Making MDM Narrative Medical decision making narrative: Patient room in the emergency department, EKG performed on arrival shows sinus tachycardia with ST segment elevations V4 and V5 with minimal elevation in V3. There is some swooping ST segments in 2 3 and aVF could be developing depression. Patient was activated STEMI alert, discussed with Dr. Matamoros at 1224 who is reviewed the patient's EKG, which compared with previous which shows new elevation. Dr. Matamoros has evaluated the patient at bedside at 1230 and the patient is quite atypical for cardiac type pain. Dr. Green is elected to cancel the catheterization at this time. There may be rate limiting lesions which would require further workup as an inpatient. CT scan of the abdomen has been ordered as well. Patient has been given morphine, will hold off on heparinization at this time. Further examination I think the patient's symptoms are much more likely due to acute pancreatitis and certainly his lipase level supports that. Troponin was 0.07, he is requiring morphine and Dilaudid to keep comfortable, Zofran and is still vomiting, Dilaudid dose was given. Phenergan has been ordered. Will discuss the patient with [facility] for admission. When discussed with the patient and family, the patient has been told he needs a cath before but they were told that he had to be over the pancreatitis before they could cath him. Medical Screen Exam Complete: Yes Emergency Medical Condition: Yes Lab Data Result diagrams: 08/17/18 12:18 08/17/18 12:18 Lab Results 08/17/18 08/17/18 08/17/18 Range/Units 12:18 12:18 12:18 WBC 17.5 H (4.0-11.0) th/mm3 RBC 4.86 (4.50-5.90) mil/mm3 Hgb 17.1 H (13.0-17.0) gm/dL POC Hgb (Calc) 18.0 H (13.0-17.0) g/dL Hct 49.2 (39.0-51.0) % POC Hct 53.0 H (39-51.0) % MCV 101.2 H (80.0-100.0) fL MCH 35.2 H (27.0-34.0) pg MCHC 34.8 (32.0-36.0) % RDW 15.2 (11.6-17.2) % Plt Count 330 D (150-450) th/mm3 MPV 10.7 (7.0-11.0) fL Neut % (Auto) 87.3 H (16.0-70.0) % Lymph % (Auto) 6.0 L (9.0-44.0) % [place] % (Auto) 6.3 (0.0-8.0) % Eos % (Auto) 0.0 (0.0-4.0) % Baso % (Auto) 0.4 (0.0-2.0) % Neut # (Auto) 15.2 H (1.8-7.7) th/mm3 Lymph # (Auto) 1.1 (1.0-4.8) th/mm3 [place] # (Auto) 1.1 H (0.0-0.9) th/mm3 Eos # (Auto) 0.0 (0.0-0.4) th/mm3 Baso # (Auto) 0.1 (0.0-0.2) th/mm3 WBC Differential . Differential Comment Auto diff final PT 11.6 (9.8-11.6) sec INR 1.1 Ratio APTT 28.6 (23.4-31.7) sec POC Sodium 129 L (137-144) mmol/L Sodium 126 L (136-145) meq/L POC Potassium 4.5 (3.6-5.0) mmol/L Potassium 4.3 (3.5-5.1) meq/L POC Chloride 97 L (102-111) mmol/L Chloride 91 L (98-107) meq/L Carbon Dioxide 9.0 L (21.0-32.0) meq/L Anion Gap 26 H (5-15) meq/L POC BUN 17 (5-21) mg/dL BUN 17 (7-18) mg/dL Creatinine 1.03 (0.60-1.30) mg/dL POC Creatinine 1.1 (0.6-1.3) mg/dL Estimated GFR 75 L (>89) mL/min POC Glucose 273 H (68-110) mg/dL Random Glucose 264 H (74-106) mg/dL Calcium 7.7 L (8.5-10.1) mg/dL Total Bilirubin 0.7 (0.2-1.0) mg/dL AST 225 H (15-37) U/L ALT 139 H (12-78) U/L Alkaline Phosphatase 215 H (45-117) U/L Total Creatine Kinase 121 (39-308) U/L CK-MB (CK-2) 1.6 (0.5-3.6) ng/mL Troponin I 0.07 H (0.02-0.05) ng/mL B-Natriuretic Peptide (0-100) pg/mL Total Protein 8.8 H (6.4-8.2) g/dL Albumin 3.2 L (3.4-5.0) g/dL Lipase (73-393) U/L 08/17/1818 Range/Units 12:18 12:18 WBC (4.0-11.0) th/mm3 RBC (4.50-5.90) mil/mm3 Hgb (13.0-17.0) gm/dL POC Hgb (Calc) (13.0-17.0) g/dL Hct (39.0-51.0) % POC Hct (39-51.0) % MCV (80.0-100.0) fL MCH (27.0-34.0) pg MCHC (32.0-36.0) % RDW (11.6-17.2) % Plt Count (150-450) th/mm3 MPV (7.0-11.0) fL Neut % (Auto) (16.0-70.0) % Lymph % (Auto) (9.0-44.0) % [place] % (Auto) (0.0-8.0) % Eos % (Auto) (0.0-4.0) % Baso % (Auto) (0.0-2.0) % Neut # (Auto) (1.8-7.7) th/mm3 Lymph # (Auto) (1.0-4.8) th/mm3 [place] # (Auto) (0.0-0.9) th/mm3 Eos # (Auto) (0.0-0.4) th/mm3 Baso # (Auto) (0.0-0.2) th/mm3 WBC Differential Differential Comment PT (9.8-11.6) sec INR Ratio APTT (23.4-31.7) sec POC Sodium (137-144) mmol/L Sodium (136-145) meq/L POC Potassium (3.6-5.0) mmol/L Potassium (3.5-5.1) meq/L POC Chloride (102-111) mmol/L Chloride (98-107) meq/L Carbon Dioxide (21.0-32.0) meq/L Anion Gap (5-15) meq/L POC BUN (5-21) mg/dL BUN (7-18) mg/dL Creatinine (0.60-1.30) mg/dL POC Creatinine (0.6-1.3) mg/dL Estimated GFR (>89) mL/min POC Glucose (68-110) mg/dL Random Glucose (74-106) mg/dL Calcium (8.5-10.1) mg/dL Total Bilirubin (0.2-1.0) mg/dL AST (15-37) U/L ALT (12-78) U/L Alkaline Phosphatase (45-117) U/L Total Creatine Kinase (39-308) U/L CK-MB (CK-2) (0.5-3.6) ng/mL Troponin I (0.02-0.05) ng/mL B-Natriuretic Peptide 38 (0-100) pg/mL Total Protein (6.4-8.2) g/dL Albumin (3.4-5.0) g/dL Lipase 3158 H (73-393) U/L Imaging Data Radiologist's impression: Chest X-Ray 08/17/18 12:25 CONCLUSION: No acute cardiopulmonary disease. Abdomen/Pelvis CT 08/17/18 12:39 CONCLUSION: 1. Pancreatic and peripancreatic inflammation most characteristic of acute pancreatitis. 2. Severe hepatic steatosis. 3. No evidence of intraperitoneal abscess formation or pseudocyst. 4. Ventral hernias containing intestinal loops. 5. No evidence of perforation or obstruction. 6. Stable left adrenal nodule and left renal cysts. 7. Status post splenectomy. Discharge Plan Discharge Disposition Patient Disposition: 30 Still Patient Discharge Details Diagnosis: Acute pancreatitis, Elevated troponin level Physicians Team ED Provider: Rashawn Barrow Primary Care Provider: UNKNOWN, Rxs /Orders / Referrals /Forms Prescriptions: No Action ondansetron [Zofran ODT] 4 mg Tablet,Disintegrating 4 mg PO QID PRN (Reason: Nausea) RF: 0 aspirin 81 mg Tablet,Chewable 81 mg PO DAILY 30 Days Qty: 30 RF: 0 multivitamin [Daily Multi-Vitamin] Tablet 1 tab PO DAILY 30 Days Qty: 30 RF: 0 thiamine HCl (vitamin B1) 100 mg Tablet 100 mg PO DAILY 30 Days Qty: 30 RF: 0 Discharge Interventions Interventions: Vital Signs Last Done: 08/17/18 14:18 Status ED Status: Admitted Patient
[2018-08-17] MEDS ORDERED: Sod Chloride 0.9% Inj 1,000 ML IV.SIG SCH ×3 (12:45→16:30)
[2018-08-17 12:55] LABS: Activated Partial Thrombo Time 28.6 sec (23.4-31.7); INR 1.1 Ratio; Prothrombin Time 11.6 sec (9.8-11.6)
--- NOTE | 2018-08-17 12:57 | XR ---
EXAM DATE: 08/17/2018 12:48 PM EST AGE/SEX: 52 years / Male INDICATIONS: Chest pain with pressure and shortness of breath. CLINICAL DATA: This is the patient's initial encounter. Patient reports that signs and symptoms have been present for 1 day and indicates a pain score of 7/10. MEDICAL/SURGICAL HISTORY: Chronic obstructive pulmonary disease. Congestive heart failure. Non e. COMPARISON: [facility], CHEST 1V SINGLE AP, 07/21/2018. . FINDINGS: A single AP view of the chest demonstrates the lungs to be symmetrically aerated without evidence of mass, infiltrate or effusion. The cardiomediastinal contours are unremarkable. Scoliotic spine.. CONCLUSION: No acute cardiopulmonary disease. Electronically signed by: Radu Mckeon MD 08/17/2018 12:56 PM EST
[2018-08-17 13:05] LABS: Alanine Aminotransferase 139 U/L (12-78)
[2018-08-17 13:09] LABS: Alkaline Phosphatase 215 U/L (45-117); Creatine Kinase 121 U/L (39-308); Total Protein 8.8 g/dL (6.4-8.2); Troponin I 0.07 ng/mL (0.02-0.05)
--- NOTE | 2018-08-17 13:19 | MB ---
cc: Mack Matamoros MD DATE: 08/17/2018 REASON FOR CONSULTATION: Abnormal EKG, possible ST elevation myocardial infarction. HISTORY OF PRESENT ILLNESS: The patient is a 52-year-old white male with a history of hypertension, borderline diabetes, coronary artery disease, COPD, alcohol abuse, who presented to the hospital this morning mainly with complaints of abdominal pain. The patient states he has had abdominal pain for months due to multiple hernias. In addition, he states he has nausea and vomiting every single morning for the past 3 months. He denies bright red blood per rectum, melena, diarrhea, hematemesis. The patient drinks at least a liter of liquor every day. His initial EKG in the emergency department did suggest anterolateral ST elevation, so he was called as a STEMI alert. The patient denies any chest pains, change in chronic mild to moderate dyspnea, dizziness, syncope, near syncope, palpitations, pedal edema, paroxysmal nocturnal dyspnea. PAST MEDICAL HISTORY: 1. COPD. 2. Hypertension. 3. Borderline diabetes. 4. Coronary artery disease, status post myocardial infarction at age 35 with placement of 2 stents at that time up in [place]. PAST SURGICAL HISTORY: 1. Herniorrhaphy. 2. Gastric surgery. CARDIAC MEDICATIONS AT HOME: Aspirin 81 mg daily. ALLERGIES: NO KNOWN DRUG ALLERGIES. FAMILY HISTORY: Both parents from myocardial infarction in their 40s. SOCIAL HISTORY: The patient smokes 2 packs of cigarettes per day. As noted above, he drinks at least a liter of liquor every day. He denies drug abuse. REVIEW OF SYSTEMS: As in history of present illness, otherwise negative or noncontributory. He also denies headache, fevers. PHYSICAL EXAMINATION: VITAL SIGNS: His blood pressure 162/121 with a pulse of 140, respirations 24. GENERAL: He is a well-developed, well-nourished white male, in mild distress. NECK: Jugular venous pressure is normal. Carotid pulses are 2+ bilaterally and without bruits. CHEST: Reveals clear lungs szymanski. CARDIAC: He has a tachycardic, regular rhythm without S3, S4, or murmur. ABDOMEN: He has a soft abdomen with mild diffuse tenderness without rebound or guarding. Bowel sounds are evident. There is no definite hepatosplenomegaly. EXTREMITIES: Reveal no clubbing, cyanosis or edema. LABORATORY DATA: Includes WBC 17.5, hemoglobin 17.1, platelets 330. Pending basic metabolic profile and cardiac enzymes. EKG shows sinus tachycardia, anterolateral infarct, age undetermined. IMPRESSION: Abnormal EKG in this 52-year-old white male with a history of alcohol and tobacco abuse, hypertension, borderline diabetes, coronary artery disease, status post myocardial infarction and coronary stenting about 17 years ago, chronic obstructive pulmonary disease, recent pancreatitis. I suspect the ST elevation in the lateral leads on his EKG is due to tachycardia in leads with Q waves; the anterolateral leads have preexisting Q-waves consistent with his previous myocardial infarction. In addition, his clinical presentation is not consistent with acute coronary syndrome. The patient complains more of abdominal pain. He has had no chest pains. There is no definite evidence for congestive heart failure. I suspect he does have at least moderately reduced left ventricular systolic function. RECOMMENDATIONS: 1. No emergency cardiac catheterization at this time. 2. Once he is stable from a GI standpoint, consider nuclear stress testing, particularly if he is to undergo repair of his multiple abdominal hernias in the future. 3. Beta daphney and PACO inhibitor therapy, as well as daily aspirin. 4. Check a 2-D echocardiogram to assess his left ventricular function. MD LINDA Ricardo/nathaly , 12:50 PM , 01:00 PM QUAN
[2018-08-17 13:21] LABS: Creatine Kinase MB 1.6 ng/mL (0.5-3.6)
[2018-08-17 13:29] LABS: Albumin 3.2 g/dL (3.4-5.0); Anion Gap 26 meq/L (5-15); Aspartate Aminotransferase 225 U/L (15-37); Blood Urea Nitrogen 17 mg/dL (7-18); Calcium 7.7 mg/dL (8.5-10.1); Chloride 91 meq/L (98-107); Glomerular Filtration Rate 75 mL/min (>89); Glucose,Random 264 mg/dL (74-106); Potassium 4.3 meq/L (3.5-5.1); Sodium 126 meq/L (136-145)
[2018-08-17] MEDS ORDERED: HYDROmorphone PF Inj 2 MG/ML Vial IV.PUSH ONE ×2 (14:09→16:21)
--- NOTE | 2018-08-17 15:02 | CT ---
EXAM DATE: 08/17/2018 2:22 PM EST AGE/SEX: 52 years / Male INDICATIONS: Left upper abdominal/epigastric pain. CLINICAL DATA: This is the patient's initial encounter. Patient reports that signs and symptoms have been present for 1 day and indicates a pain score of 7/10. MEDICAL/SURGICAL HISTORY: Hypertension. Chronic obstructive pulmonary disease. Cardiovascular disease. Fusion, lumbar. Multiple hernia repairs ORAL CONTRAST: No oral contrast ingested. RADIATION DOSE: 12.96 CTDI (mGy) COMPARISON: [facility], CT ABDOMEN & PELVIS W CONTRAST, 07/21/2018. . TECHNIQUE: Multiple contiguous axial images were obtained through the abdomen and pelvis following b olus infusion of 96 ml Omnipaque 350 (iohexol) nonionic water-soluble contrast as a single exam dos e. No oral contrast ingested. Using automated exposure control and adjustment of the mA and/or kV ac cording to patient size, radiation dose was kept as low as reasonably achievable to obtain optimal di agnostic quality images. DICOM format image data is available electronically for review and comparis on. FINDINGS: Lower Lungs: The visualized lower lungs are clear. Liver: The liver is diffusely hypodense and enlarged. There are no focal space-occupying lesions or e vidence of biliary duct dilatation. There are no calcified stones. Spleen: There is absence of the spleen. Pancreas: Peripancreatic stranding and inflammation has recurred especially in the pancreatic head. The inflammatory changes extend along the duodenum and into the mesentery. There are no loculated flu id collections. Kidneys: Normal in size and shape. No evidence of mass or hydronephrosis. Small left renal cyst are stable. Adrenal Glands: Left adrenal nodule is stable. Aorta: The aorta and proximal iliac vessels are grossly unremarkable without aneurysmal dilation. Bowel/Mesentery: Diverticula are seen throughout the sigmoid colon and descending colon. The bowel lo ops are grossly unremarkable. The cecum and sigmoid colon have a normal configuration. Abdominal Wall: 2 ventral hernias containing intestinal loops are again identified. There is no evid ence of incarceration or obstruction. Retroperitoneum: No evidence of adenopathy in the retrocrural, para-aortic, or deep pelvic regions. Bladder: Contours are smooth. Reproductive Organs: No abnormal masses or calcifications seen. Inguinal: The inguinal region is unremarkable without evidence of adenopathy. Bony Structures: Posterior fusion apparatus is identified at the lumbosacral junction. CONCLUSION: 1. Pancreatic and peripancreatic inflammation most characteristic of acute pancreatitis. 2. Severe hepatic steatosis. 3. No evidence of intraperitoneal abscess formation or pseudocyst. 4. Ventral hernias containing intestinal loops. 5. No evidence of perforation or obstruction. 6. Stable left adrenal nodule and left renal cysts. 7. Status post splenectomy. Electronically signed by: Satish Gunderson MD 08/17/2018 3:01 PM EST
--- NOTE | 2018-08-17 16:24 | P.HP ---
History of Present Illness Primary Care Physician: UNKNOWN Chief Complaint: Abdominal Pain History of Present Illness: This is a pleasant 52 y/o Male who came to the emergency department for evaluation of left upper quadrant epigastric abdominal pain which started about 11 AM this morning. Patient has a history of cigarette smoking, prediabetes, hypertension. He states he had a heart attack sometime ago. He also has had recurrent admissions to the hospital for alcohol induced pancreatitis. His last admission was the end of June. He denies any chest pain denies any shortness of breath mild nausea no vomiting. also he has Marijuana dependence. He states he was drinking alcohol until yesterday morning. Review of Systems All other systems reviewed negative except as stated in HPI PMFSH - History History Provided By: Patient - Medical History Medical History: Medical History (Last Reviewed 08/17/18 @ 12:17 by Blanche Carrillo) COPD (chronic obstructive pulmonary disease) Hypertension Myocardial infarction - Surgical History Surgical History: Surgical History (Last Reviewed 08/17/18 @ 12:17 by Blanche Carrillo) History of herniorrhaphy S/P gastric surgery - Family History Family History: Family History (Last Updated 08/17/18 @ 17:23 by Iftikhar Montgomery MD) Father Family history of acute myocardial infarction Mother Diabetes mellitus Mother Breast cancer Mother Pancreatic cancer - Tobacco History Second Hand Smoke Exposure: No Tobacco Use In Past 30 Days: Yes Smoking Status: Current every day smoker Tobacco Type: Cigarettes Packs Per Day: 1 - Alcohol History How Often Do You Have a Drink Containing Alcohol: 4 or more times a week - Substance Use History Substance History: Active Abuse - Substance Use Type Marijuana Status: Active Route Used: Inhalation Reason for Use: Calm Down - Travel History Recent Travel in the [place] Within the Last 8 Weeks: No Recent Travel Out of the Country Within the Last 8 Weeks: No - Immunization History Tetanus Immunization: >5 Years Medications and Allergies Active Medications: Active Medications Sodium Chloride (Ns Flush) 2 ml IV.FLUSH UNSCH PRN PRN Reason: FLUSH AFTER USING IV ACCESS Allergies Allergy/AdvReac Type Severity Reaction Status Date / Time No Known Allergies Allergy Verified 08/17/18 12:18 Home Medications Medication Instructions Recorded Confirmed Type ondansetron [Zofran ODT] 4 mg PO QID PRN 07/21/18 08/17/18 History Exam Vital signs: Vital Signs 08/17/18 12:15 08/17/18 12:24 08/17/18 12:27 Temperature 98.5 F Pulse Rate 140 H 129 H Respiratory Rate 24 Blood Pressure 162/121 H Pulse Oximetry 97 97 08/17/18 14:18 Temperature Pulse Rate 121 H Respiratory Rate 16 Blood Pressure 143/98 H Pulse Oximetry 98 Intake & Output 08/16/18 08/17/18 08/17/18 18:59 06:59 18:59 Intake Total 1999 Balance 1999 Weight 79.379 kg Intake: IV 1999 NS Inj 1,000 ML @ 1000 mls/hr 1999 IV.SIG BOLUS DONNY Rx#:[id number] Narrative: GENERAL: Well-developed patient, in no apparent distress. CARDIOVASCULAR: Regular rate and rhythm without murmurs, gallops, or rubs. RESPIRATORY: Clear to auscultation. Breath sounds equal bilaterally. No wheezes , rales, or rhonchi. GASTROINTESTINAL: Abdomen soft, tender on palpation, multiple ventral hernia. MUSCULOSKELETAL: Extremities without clubbing, cyanosis, or edema. NEURO: Alert & Oriented x4 to person, place, time, situation. Moves all ext x4 Results - Labs CBC & Chem 7: 08/17/18 12:18 08/17/18 12:18 Labs: Laboratory Results - last 24 hr 08/17/18 08/17/18 08/17/18 12:18 12:18 12:18 WBC 17.5 H RBC 4.86 Hgb 17.1 H POC Hgb (Calc) 18.0 H Hct 49.2 POC Hct 53.0 H MCV 101.2 H MCH 35.2 H MCHC 34.8 RDW 15.2 Plt Count 330 D MPV 10.7 Neut % (Auto) 87.3 H Lymph % (Auto) 6.0 L [place] % (Auto) 6.3 Eos % (Auto) 0.0 Baso % (Auto) 0.4 Neut # (Auto) 15.2 H Lymph # (Auto) 1.1 [place] # (Auto) 1.1 H Eos # (Auto) 0.0 Baso # (Auto) 0.1 WBC Differential . Differential Comment Auto diff final PT 11.6 INR 1.1 APTT 28.6 POC Sodium 129 L Sodium 126 L POC Potassium 4.5 Potassium 4.3 POC Chloride 97 L Chloride 91 L Carbon Dioxide 9.0 L Anion Gap 26 H POC BUN 17 BUN 17 Creatinine 1.03 POC Creatinine 1.1 Estimated GFR 75 L POC Glucose 273 H Random Glucose 264 H Calcium 7.7 L Total Bilirubin 0.7 AST 225 H ALT 139 H Alkaline Phosphatase 215 H Total Creatine Kinase 121 CK-MB (CK-2) 1.6 Troponin I 0.07 H B-Natriuretic Peptide Total Protein 8.8 H Albumin 3.2 L Lipase 08/17/18 08/17/18 12:18 12:18 WBC RBC Hgb POC Hgb (Calc) Hct POC Hct MCV MCH MCHC RDW Plt Count MPV Neut % (Auto) Lymph % (Auto) [place] % (Auto) Eos % (Auto) Baso % (Auto) Neut # (Auto) Lymph # (Auto) [place] # (Auto) Eos # (Auto) Baso # (Auto) WBC Differential Differential Comment PT INR APTT POC Sodium Sodium POC Potassium Potassium POC Chloride Chloride Carbon Dioxide Anion Gap POC BUN BUN Creatinine POC Creatinine Estimated GFR POC Glucose Random Glucose Calcium Total Bilirubin AST ALT Alkaline Phosphatase Total Creatine Kinase CK-MB (CK-2) Troponin I B-Natriuretic Peptide 38 Total Protein Albumin Lipase 3158 H - Imaging Impressions Chest X-Ray 08/17/18 12:25 CONCLUSION: No acute cardiopulmonary disease. Abdomen/Pelvis CT 08/17/18 12:39 CONCLUSION: 1. Pancreatic and peripancreatic inflammation most characteristic of acute pancreatitis. 2. Severe hepatic steatosis. 3. No evidence of intraperitoneal abscess formation or pseudocyst. 4. Ventral hernias containing intestinal loops. 5. No evidence of perforation or obstruction. 6. Stable left adrenal nodule and left renal cysts. 7. Status post splenectomy. Caprini VTE Risk Assessment Caprini VTE Risk Assessment: Moderate/High Risk (score >= 2) Caprini Risk Assessment Model: Point Value = 1 Point Value = 2 Point Value = 3 Point Value = 5 Age 41-60 Minor surgery BMI > 25 kg/m2 Swollen legs Varicose veins or History of unexplained or recurrent spontaneous Oral contraceptives or hormone replacement Sepsis (< 1 month) Serious lung disease, including pneumonia (< 1 month) Abnormal pulmonary function Acute myocardial infarction Congestive heart failure (< 1 month) History of inflammatory bowel disease Medical patient at bed rest Age 61-74 Arthroscopic surgery Major open surgery (> 45 min) Laparoscopic surgery (> 45 min) Malignancy Confined to bed (> 72 hours) Immobilizing plaster cast Central venous access Age >= 75 History of VTE Family history of VTE Factor V Leiden Prothrombin [id number] Lupus anticoagulant Anticardiolipin antibodies Elevated serum homocysteine Heparin-induced thrombocytopenia Other congenital or acquired thrombophilia Stroke (< 1 month) Elective arthroplasty Hip, pelvis, or leg fracture Acute spinal cord injury (< 1 month) Prophylaxis Regimen: Total Risk Factor Score Risk Level Prophylaxis Regimen 0-1 Low Early ambulation 2 Moderate Order ONE of the following: *Sequential Compression Device (SCD) *Heparin 5000 units SQ BID 3-4 Higher Order ONE of the following medications: *Heparin 5000 units SQ TID *Enoxaparin/Lovenox 40 mg SQ daily (WT < 150 kg, CrCl > 30 mL/min) *Enoxaparin/Lovenox 30 mg SQ daily (WT < 150 kg, CrCl > 10-29 mL/min) *Enoxaparin/Lovenox 30 mg SQ BID (WT < 150 kg, CrCl > 30 mL/min) AND/OR *Sequential Compression Device (SCD) 5 or more Highest Order ONE of the following medications: *Heparin 5000 units SQ TID (Preferred with Epidurals) *Enoxaparin/Lovenox 40 mg SQ daily (WT < 150 kg, CrCl > 30 mL/min) *Enoxaparin/Lovenox 30 mg SQ daily (WT < 150 kg, CrCl > 10-29 mL/min) *Enoxaparin/Lovenox 30 mg SQ BID (WT < 150 kg, CrCl > 30 mL/min) AND *Sequential Compression Device (SCD) Assessment and Plan - Plan 1. Acute pancreatitis, CT scan of the abdomen had Pancreatic and Peripancreatic inflammation, Severe Hepatic Steatosis, Ventral Hernias containing intestinal loops, Stable left adrenal nodule and left renal cysts, Status post splenectomy. Leukocytosis probable reactive 17.5 with Hemoglobin 17.1 continue IV fluids NS at 150 ml per hour, at this time receiving another Liter of Normal saline Protonix and NPO until tomorrow. Pain medicine. 2. hyponatremia probably secondary to Liver disease and Potomania possible. Sodium 129 at this time receiving IV fluids. he is dehydrated. 3. Alcohol abuse strongly recommended to stop drinking alcohol, CIWA protocol 4. tobacco dependence strongly recommended to stop smoking 5. Marijuana abuse strongly recommended to stop behavior. 6. Reproducible Chest pain, already seen by environmental air specialist Doctor Peter, may need Cardiac Cath during this admission, ECG sinus rhythm, st elevation found. environmental air specialist following continue Cardiac enzymes every six hours and Telemetry. machine adjuster leader case trim consult Urinalysis, follow laboratory in am tomorrow. DVT prophylaxis with Heparin. Code Status: Full code. Discussed Condition With: patient and Nurse Emergency Medicine Specialist Doctor Rashawn Barrow Discharge Planning: Expected in one to two days.
[2018-08-17] MEDS ORDERED: Acetaminophen 325 MG Tablet PO PRN (16:26)
[2018-08-17] MEDS ORDERED: Bisacodyl 10 MG Supp RECTAL PRN (16:26)
[2018-08-17 16:57] LABS: Bilirubin,Urine Negative (Negative); Clarity,Urine Hazy (Clear); Color,Urine Yellow (Yellw/Straw); Glucose,Urine (UA) 500 or Greater mg/dL (Negative); Hyaline Casts,Urine 1 /lpf (0-3); Leukocyte Esterase,Urine Negative (Negative); Mucus,Urine Few /lpf (Occasional); Nitrite,Urine Negative (Negative); Specific Gravity,Urine 1.025 (1.002-1.035)
[2018-08-17] MEDS ORDERED: LORazepam 1 MG Tablet PO PRN (17:29)
[2018-08-17] MEDS ORDERED: Thiamine Inj 100 MG in Sodium Chlor 0.9% Inj 100 ML IV.SIG SCH (17:30)
[2018-08-17] MEDS: Sod Chloride 0.9% Inj 1,000 ML IV.CONT SCH (18:00)
[2018-08-17] MEDS: Heparin - SQ 10,000 UNITS/ML Vial SQ SCH (18:04)
[2018-08-17] MEDS: Pantoprazole Inj 40 MG Vial IV.PUSH SCH (18:13)
[2018-08-17] MEDS: HYDROmorphone PF Inj 1 MG/ML Ampul IV.PUSH PRN (19:28)
[2018-08-17 19:34] LABS: Troponin I 0.07 ng/mL (0.02-0.05)
[2018-08-17] MEDS: Multivitamin Inj 10 ML, Thiamine Inj 100 MG, Folic Acid Inj 1 MG in Sodium Chlor 0.9% I... IV.SIG SCH (20:35)
[2018-08-17] MEDS: guaiFENesin 600 MG ER Tablet PO SCH (20:35)
[2018-08-17] MEDS: Senna/Docusate Sodium 8.6/50 MG Tablet PO SCH (20:36)
[2018-08-18] MEDS: Haloperidol Inj 5 MG/ML Ampul IV.PUSH PRN ×5 (00:20→11:21)
[2018-08-18] MEDS: Heparin - SQ 10,000 UNITS/ML Vial SQ SCH ×3 (00:48→16:44)
[2018-08-18] MEDS: Sod Chloride 0.9% Inj 1,000 ML IV.CONT SCH ×4 (00:51→20:02)
[2018-08-18] MEDS ORDERED: Sodium Chloride 0.9% 2 ML Flush PRN IV.FLUSH (01:30)
[2018-08-18] MEDS ORDERED: Haloperidol Inj 5 MG/ML Ampul IV.PUSH ONE (01:58)
[2018-08-18 03:52] LABS: Baso # (Auto) 0.1 th/mm3 (0.0-0.2); Baso % (Auto) 0.3 % (0.0-2.0); Hematocrit 41.4 % (39.0-51.0); Lymph # (Auto) 1.5 th/mm3 (1.0-4.8); Lymph % (Auto) 6.2 % (9.0-44.0); Mean Corpuscular HGB Conc 33.7 % (32.0-36.0); Mean Corpuscular Hemoglobin 33.9 pg (27.0-34.0); Mean Corpuscular Volume 100.6 fL (80.0-100.0); Mean Platelet Volume 10.7 fL (7.0-11.0); Mono # (Auto) 1.5 th/mm3 (0.0-0.9); Mono % (Auto) 6.4 % (0.0-8.0); Neut # (Auto) 20.6 th/mm3 (1.8-7.7); Neut % (Auto) 87.1 % (16.0-70.0); Platelet Count 235 th/mm3 (150-450); Red Blood Count 4.12 mil/mm3 (4.50-5.90); White Blood Count 23.6 th/mm3 (4.0-11.0)
[2018-08-18] MEDS ORDERED: Chlorhexidine Gluconate 2% 1 Pack (2 Cloths) TOPICAL PRN (04:00)
[2018-08-18 04:20] LABS: Alanine Aminotransferase 92 U/L (12-78); Albumin 2.6 g/dL (3.4-5.0); Alkaline Phosphatase 147 U/L (45-117); Anion Gap 13 meq/L (5-15); Aspartate Aminotransferase 134 U/L (15-37); Blood Urea Nitrogen 11 mg/dL (7-18); Calcium 6.9 mg/dL (8.5-10.1); Carbon Dioxide 21.1 meq/L (21.0-32.0); Chloride 101 meq/L (98-107); Glomerular Filtration Rate Greater Than 89 mL/min (>89); Glucose,Random 245 mg/dL (74-106); Lipase 1492 U/L (73-393); Potassium 3.6 meq/L (3.5-5.1); Sodium 135 meq/L (136-145); Total Protein 7.1 g/dL (6.4-8.2); Troponin I 0.09 ng/mL (0.02-0.05)
[2018-08-18] MEDS: Chlorhexidine Gluconate 2% 1 Pack (2 Cloths) TOPICAL SCH (04:37)
[2018-08-18] MEDS ORDERED: Calcium Chloride Inj 1 GM in Sodium Chlor 0.9% Inj 100 ML IV.SIG ONE (04:54)
[2018-08-18] MEDS ORDERED: Metoprolol Inj 5 MG/5 ML Vial IV.PUSH ONE ×2 (04:55→08:15)
[2018-08-18 05:06] LABS: Lymphocytes 4 % (9-44); Monocytes 1 % (0-8); Platelet Estimate Normal (Normal); Platelet Morphology Normal (Normal)
[2018-08-18] MEDS: Pantoprazole Inj 40 MG Vial IV.PUSH SCH ×2 (05:14→17:27)
--- NOTE | 2018-08-18 08:24 | P.PNCA ---
Subjective Interval history: Awake. Unintelligible. In no distress. Medications and Allergies Active Medications: Active Medications Acetaminophen (Tylenol) 650 mg PO Q4H PRN PRN Reason: Temp > 100.4 Al Hydroxide/Mg Hydroxide (Milk Of Lorena Bryan) 30 ml PO Q12H PRN PRN Reason: Mild Constipation Albuterol (Duoneb Neb ([facility])) 1 ampul NEB Q4HR NEB [facility] Last Admin: 08/18/18 08:14 Dose: Not Given Bisacodyl (Dulcolax Supp) 10 mg RECTAL DAILY PRN PRN Reason: SEVERE CONSITIPATION Chlorhexidine Gluconate (Chlorhexidine 2% Cloth) 3 pack TOPICAL DAILY@0400 DONNY Stop: 08/23/18 03:59 Last Admin: 08/18/18 04:37 Dose: 3 pack Chlorhexidine Gluconate (Chlorhexidine 2% Cloth) 3 pack TOPICAL DAILY@0400 PRN PRN Reason: Extra cloth needed Stop: 08/23/18 03:59 Clonidine HCl (Catapres) 0.1 mg PO Q8H PRN PRN Reason: SYS BP GREATER THAN 160 MMHG Last Admin: 08/17/18 19:28 Dose: 0.1 mg Flumazenil (Romazecon Inj) 0.2 mg IV.PUSH Q1M PRN PRN Reason: OVERSEDATION Guaifenesin (Mucinex Er) 600 mg PO BID [facility] Last Admin: 08/17/18 20:35 Dose: 600 mg Haloperidol Lactate (Haldol Inj) 1 mg IV.PUSH Q15M PRN PRN Reason: for severe agitation Last Admin: 08/18/18 04:36 Dose: 1 mg Heparin Sodium (Porcine) (Heparin Inj) 5,000 units SQ Q8H [facility] Last Admin: 08/18/18 00:48 Dose: Not Given Hydromorphone HCl (Dilaudid Pf Inj) 0.5 mg IV.PUSH Q4H PRN PRN Reason: PAIN SCALE 6 TO 10 Last Admin: 08/17/18 19:28 Dose: 0.5 mg Sodium Chloride (Ns Inj) 1,000 mls @ 150 mls/hr IV.CONT .Q6H40M [facility] Last Infusion: 08/18/18 07:25 Dose: 150 mls/hr Multivitamins 10 ml/ Thiamine HCl 100 mg/ Folic Acid 1 mg/Sodium Chloride 511.2 mls @ 125 mls/hr IV.SIG Q24H DONNY Stop: 08/20/18 00:06 Last Infusion: 08/18/18 00:54 Dose: Infused Lactulose (Lactulose Liq) 30 ml PO DAILY PRN PRN Reason: SEVERE CONSITIPATION Lorazepam (Ativan) 1 mg PO Q4H PRN PRN Reason: for CIWA 8-10 Lorazepam (Ativan) 2 mg PO Q2H PRN PRN Reason: for CIWA 11-14 Lorazepam (Ativan Inj) 2 mg IV.PUSH Q1H PRN PRN Reason: for CIWA 15-20 Last Admin: 08/17/18 23:29 Dose: 2 mg Lorazepam (Ativan Inj) 2 mg IV.PUSH Q15M PRN PRN Reason: for CIWA > 20 Last Admin: 08/18/18 05:15 Dose: 2 mg Lorazepam (Ativan Inj) 1 mg IV.PUSH Q4H PRN PRN Reason: for CIWA 8-10 Lorazepam (Ativan Inj) 2 mg IV.PUSH Q2H PRN PRN Reason: for CIWA 11-14 Last Admin: 08/17/18 22:15 Dose: 2 mg Multivitamins (Theragran) 1 tab PO DAILY [facility] Ondansetron HCl (Zofran Inj) 4 mg IV.PUSH Q4H PRN PRN Reason: NAUSEA OR VOMITING Last Admin: 08/17/18 17:58 Dose: 4 mg Pantoprazole Sodium (Protonix Inj) 40 mg IV.PUSH Q12H [facility] Last Admin: 08/18/18 05:14 Dose: 40 mg Senna/Docusate Sodium (Kristen-Colace) 1 tab PO BID [facility] Last Admin: 08/17/18 20:36 Dose: Not Given Sennosides (Senokot) 17.2 mg PO Q12H PRN PRN Reason: Moderate Constipation Sodium Chloride (Ns Flush) 2 ml IV.FLUSH BID [facility] Sodium Chloride (Ns Flush) 2 ml IV.FLUSH PRN PRN PRN Reason: FLUSH AFTER USING IV ACCESS Thiamine HCl (Vitamin B1) 100 mg PO DAILY [facility] Allergies Allergy/AdvReac Type Severity Reaction Status Date / Time No Known Allergies Allergy Verified 08/17/18 12:18 Home Medications Medication Instructions Recorded Confirmed Type ondansetron [Zofran ODT] 4 mg PO QID PRN 07/21/18 08/17/18 History Physical Exam Vital signs: Vital Signs 08/17/18 12:15 08/17/18 12:24 08/17/18 12:27 Temperature 98.5 F Pulse Rate 140 H 129 H Respiratory Rate 24 Blood Pressure 162/121 H Pulse Oximetry 97 97 08/17/18 14:18 08/17/18 16:26 08/17/18 16:55 Temperature Pulse Rate 121 H 115 H 118 H Respiratory Rate 16 19 Blood Pressure 143/98 H 146/95 H 160/90 H Pulse Oximetry 98 95 08/17/18 17:15 08/17/18 19:57 08/17/18 20:00 Temperature 98.7 F 99.7 F H Pulse Rate 119 H 119 H 124 H Respiratory Rate 20 20 20 Blood Pressure 192/126 H Pulse Oximetry 97 95 08/17/18 23:12 08/18/18 00:00 08/18/18 01:41 Temperature 98.9 F Pulse Rate 122 H 126 H 131 H Respiratory Rate 22 20 43 H Blood Pressure 152/92 H Pulse Oximetry 95 94 L 08/18/18 01:45 08/18/18 02:00 08/18/18 02:02 Temperature Pulse Rate 128 H 128 H 130 H Respiratory Rate 42 H 46 H 43 H Blood Pressure 180/115 H 245/114 H Pulse Oximetry 95 95 95 08/18/18 02:05 08/18/18 02:16 08/18/18 02:30 Temperature Pulse Rate 128 H 123 H 125 H Respiratory Rate 31 H 42 H 49 H Blood Pressure 192/110 H 178/115 H 177/111 H Pulse Oximetry 94 L 94 L 95 08/18/18 02:45 08/18/18 03:00 08/18/18 03:01 Temperature Pulse Rate 129 H 132 H 129 H Respiratory Rate 45 H 43 H 42 H Blood Pressure 165/117 H 176/118 H Pulse Oximetry 95 95 95 08/18/18 03:08 08/18/18 03:16 08/18/18 03:30 Temperature Pulse Rate 130 H 142 H 127 H Respiratory Rate 40 H 43 H 40 H Blood Pressure 185/118 H 190/108 H 190/107 H Pulse Oximetry 95 95 93 L 08/18/18 03:36 08/18/18 03:46 08/18/18 04:00 Temperature 99 F Pulse Rate 119 H 129 H 121 H Respiratory Rate 41 H 46 H 36 H Blood Pressure 186/102 H 179/101 H 164/104 H Pulse Oximetry 95 94 L 94 L 08/18/18 04:15 08/18/18 04:30 08/18/18 04:45 Temperature Pulse Rate 128 H 129 H 128 H Respiratory Rate 43 H 46 H 44 H Blood Pressure 177/109 H 174/111 H 169/109 H Pulse Oximetry 94 L 94 L 94 L 08/18/18 08:14 Temperature Pulse Rate 129 H Respiratory Rate 23 Blood Pressure Pulse Oximetry 94 L Intake & Output 08/17/18 08/18/18 08/18/18 18:59 06:59 18:59 Intake Total 3000 / 3000 1511.2 / 1511.2 110 / 110 Output Total 1400 / 1400 Balance 1600 / 1600 1511.2 / 1511.2 110 / 110 Weight 85.7 kg 85.5 kg Intake: IV 3000 / 3000 1511.2 / 1511.2 110 / 110 NS Inj 1,000 ML @ 150 mls/hr IV 1000 / 1000 .CONT .Q6H40M [facility] Rx#:[id number] Calcium Chloride Inj 1 GM In NS 110 / 110 Inj 100 ML @ 110 mls/hr IV.SIG ONCE ONE Rx#:[id number] MVI-12 Inj 10 ML Thiamine Inj 511.2 / 511.2 100 MG Folvite Inj 1 MG In NS Inj 500 ML @ 125 mls/hr IV.SIG Q24H [facility] Rx#:[id number] NS Inj 1,000 ML @ 1000 mls/hr 3000 / 3000 IV.SIG BOLUS [facility] Rx#:[id number] Output: Urine 1400 / 1400 Other: # Voids 1 1 # Bowel Movements 0 Weight On Admission 85.7 kg - Constitutional no acute distress - Routine Neck Exam Absent: JVD - Routine Respiratory Exam Present: CTA bilaterally - Routine Cardiovascular Exam Present: RRR, S1, S2. Absent: murmur, gallop - Routine Abdominal Exam Present: soft. Absent: normoactive bowel sounds, tenderness, organomegaly - Routine Extremities Exam Absent: cyanosis, clubbing, edema Results 08/18/18 03:33 08/18/18 03:33 Cardiac Enzymes 11/08/17/18 08/17/18 Range/Units 12:18 12:18 18:24 AST 225 H (15-37) U/L CK-MB (CK-2) 1.6 (0.5-3.6) ng/mL Troponin I 0.07 H 0.07 H (0.02-0.05) ng/mL B-Natriuretic Peptide 38 (0-100) pg/mL 08/18/18 08/18/18 Range/Units 03:33 03:33 AST 134 H (15-37) U/L CK-MB (CK-2) (0.5-3.6) ng/mL Troponin I 0.09 H (0.02-0.05) ng/mL B-Natriuretic Peptide (0-100) pg/mL Coagulation 08/17/18 08/17/18 Range/Units 12:18 12:18 PT 11.6 (9.8-11.6) sec APTT 28.6 (23.4-31.7) sec B-Natriuretic Peptide 38 (0-100) pg/mL CBC 08/17/18 08/18/18 Range/Units 12:18 03:33 WBC 17.5 H 23.6 H (4.0-11.0) th/mm3 RBC 4.86 4.12 L (4.50-5.90) mil/mm3 Hgb 17.1 H 14.0 D (13.0-17.0) gm/dL Hct 49.2 41.4 (39.0-51.0) % Plt Count 330 D 235 (150-450) th/mm3 Neut # (Auto) 15.2 H 20.6 H (1.8-7.7) th/mm3 Lymph # (Auto) 1.1 1.5 (1.0-4.8) th/mm3 [place] # (Auto) 1.1 H 1.5 H (0.0-0.9) th/mm3 Eos # (Auto) 0.0 0.0 (0.0-0.4) th/mm3 Baso # (Auto) 0.1 0.1 (0.0-0.2) th/mm3 Comprehensive Metabolic Panel 08/17/18 08/18/18 Range/Units 12:18 03:33 Sodium 126 L 135 L (136-145) meq/L Potassium 4.3 3.6 (3.5-5.1) meq/L Chloride 91 L 101 D (98-107) meq/L Carbon Dioxide 9.0 L 21.1 D (21.0-32.0) meq/L BUN 17 11 (7-18) mg/dL Creatinine 1.03 0.81 (0.60-1.30) mg/dL Calcium 7.7 L 6.9 L* D (8.5-10.1) mg/dL AST 225 H 134 H (15-37) U/L ALT 139 H 92 H (12-78) U/L Alkaline Phosphatase 215 H 147 H (45-117) U/L Total Protein 8.8 H 7.1 D (6.4-8.2) g/dL Albumin 3.2 L 2.6 L D (3.4-5.0) g/dL Intake and Output 08/17/18 08/18/18 08/18/18 22:59 06:59 14:59 Intake Total 1999 1511.2 / 1511.2 110 / 110 Output Total 1400 / 1400 Balance 600 / 600 1511.2 / 1511.2 110 / 110 Intake: IV 1999 1511.2 / 1511.2 110 / 110 NS Inj 1,000 ML @ 150 mls/hr IV 1000 / 1000 .CONT .Q6H40M [facility] Rx#:[id number] Calcium Chloride Inj 1 GM In NS 110 / 110 Inj 100 ML @ 110 mls/hr IV.SIG ONCE ONE Rx#:[id number] MVI-12 Inj 10 ML Thiamine Inj 511.2 / 511.2 100 MG Folvite Inj 1 MG In NS Inj 500 ML @ 125 mls/hr IV.SIG Q24H [facility] Rx#:[id number] NS Inj 1,000 ML @ 1000 mls/hr 1999 IV.SIG BOLUS [facility] Rx#:[id number] Output: Urine 1400 / 1400 Other: # Voids 1 1 # Bowel Movements 0 Weight 85.7 kg 85.5 kg Weight On Admission 85.7 kg - Imaging and Cardiology Imaging: Impressions Chest X-Ray 08/17/18 12:25 CONCLUSION: No acute cardiopulmonary disease. Abdomen/Pelvis CT 08/17/18 12:39 CONCLUSION: 1. Pancreatic and peripancreatic inflammation most characteristic of acute pancreatitis. 2. Severe hepatic steatosis. 3. No evidence of intraperitoneal abscess formation or pseudocyst. 4. Ventral hernias containing intestinal loops. 5. No evidence of perforation or obstruction. 6. Stable left adrenal nodule and left renal cysts. 7. Status post splenectomy. Assessment and Plan - Assessment (1) Coronary artery disease Code(s): I25.10 - Atherosclerotic heart disease of [place] coronary artery without angina pectoris Status: Chronic Plan: History of [place], 2 coronary stents 2000. Cardiac status overall stable. No definite evidence for ACS. Slight elevations in troponin possibly due to tachycardia from abdominal pain, alcohol withdrawal. Recommend await echo, beta daphney and PACO-I therapy as BP's tolerate. Dr. Toribio to see PRN through Thursday. (2) Hypertension Code(s): I10 - Essential (primary) hypertension Status: Chronic Plan: Mildly elevated BP's though in the setting of alcohol withdrawal, abdominal pain. Recommend beta daphney, PACO-I, IV until able to take oral medications. - Plan Code Status: full code (1) Coronary artery disease Qualifiers: Coronary Disease-Associated Artery/Lesion type: [place] artery [place] vs. transplanted heart: [place] heart Associated angina: without angina Qualified Code(s): I25.10 - Atherosclerotic heart disease of [place] coronary artery without angina pectoris (2) Hypertension Qualifiers: Hypertension type: essential hypertension Qualified Code(s): I10 - Essential (primary) hypertension
[2018-08-18] MEDS: Sodium Chloride 0.9% 2 ML Flush BID IV.FLUSH SCH ×2 (08:26→20:05)
[2018-08-18] MEDS ORDERED: Metoprolol Inj 5 MG/5 ML Vial IV.PUSH SCH (09:00)
[2018-08-18] MEDS: guaiFENesin 600 MG ER Tablet PO SCH ×2 (09:37→20:06)
[2018-08-18] MEDS: Senna/Docusate Sodium 8.6/50 MG Tablet PO SCH ×2 (09:37→20:03)
--- NOTE | 2018-08-18 09:47 | P.PNIM ---
Subjective Interval history: Patient mildly agitated this morning. He does open his eyes and moves all 4 of his extremities. Physical Exam Vital signs: Vital Signs 08/17/18 12:15 08/17/18 12:24 08/17/18 12:27 Temperature 98.5 F Pulse Rate 140 H 129 H Respiratory Rate 24 Blood Pressure 162/121 H Pulse Oximetry 97 97 08/17/18 14:18 08/17/18 16:26 08/17/18 16:55 Temperature Pulse Rate 121 H 115 H 118 H Respiratory Rate 16 19 Blood Pressure 143/98 H 146/95 H 160/90 H Pulse Oximetry 98 95 08/17/18 17:15 08/17/18 19:57 08/17/18 20:00 Temperature 98.7 F 99.7 F H Pulse Rate 119 H 119 H 124 H Respiratory Rate 20 20 20 Blood Pressure 192/126 H Pulse Oximetry 97 95 08/17/18 23:12 08/18/18 00:00 08/18/18 01:41 Temperature 98.9 F Pulse Rate 122 H 126 H 131 H Respiratory Rate 22 20 43 H Blood Pressure 152/92 H Pulse Oximetry 95 94 L 08/18/18 01:45 08/18/18 02:00 08/18/18 02:02 Temperature Pulse Rate 128 H 128 H 130 H Respiratory Rate 42 H 46 H 43 H Blood Pressure 180/115 H 245/114 H Pulse Oximetry 95 95 95 08/18/18 02:05 08/18/18 02:16 08/18/18 02:30 Temperature Pulse Rate 128 H 123 H 125 H Respiratory Rate 31 H 42 H 49 H Blood Pressure 192/110 H 178/115 H 177/111 H Pulse Oximetry 94 L 94 L 95 08/18/18 02:45 08/18/18 03:00 08/18/18 03:01 Temperature Pulse Rate 129 H 132 H 129 H Respiratory Rate 45 H 43 H 42 H Blood Pressure 165/117 H 176/118 H Pulse Oximetry 95 95 95 08/18/18 03:08 08/18/18 03:16 08/18/18 03:30 Temperature Pulse Rate 130 H 142 H 127 H Respiratory Rate 40 H 43 H 40 H Blood Pressure 185/118 H 190/108 H 190/107 H Pulse Oximetry 95 95 93 L 08/18/18 03:36 08/18/18 03:46 08/18/18 04:00 Temperature 99 F Pulse Rate 119 H 129 H 121 H Respiratory Rate 41 H 46 H 36 H Blood Pressure 186/102 H 179/101 H 164/104 H Pulse Oximetry 95 94 L 94 L 08/18/18 04:15 08/18/18 04:30 08/18/18 04:45 Temperature Pulse Rate 128 H 129 H 128 H Respiratory Rate 43 H 46 H 44 H Blood Pressure 177/109 H 174/111 H 169/109 H Pulse Oximetry 94 L 94 L 94 L 08/18/18 08:14 Temperature Pulse Rate 129 H Respiratory Rate 23 Blood Pressure Pulse Oximetry 94 L Intake & Output 08/17/18 08/18/18 08/18/18 18:59 06:59 18:59 Intake Total 3000 / 3000 1511.2 / 1511.2 110 / 110 Output Total 1400 / 1400 Balance 1600 / 1600 1511.2 / 1511.2 110 / 110 Weight 85.7 kg 85.5 kg Intake: IV 3000 / 3000 1511.2 / 1511.2 110 / 110 NS Inj 1,000 ML @ 150 mls/hr IV 1000 / 1000 .CONT .Q6H40M [facility] Rx#:[id number] Calcium Chloride Inj 1 GM In NS 110 / 110 Inj 100 ML @ 110 mls/hr IV.SIG ONCE ONE Rx#:[id number] MVI-12 Inj 10 ML Thiamine Inj 511.2 / 511.2 100 MG Folvite Inj 1 MG In NS Inj 500 ML @ 125 mls/hr IV.SIG Q24H [facility] Rx#:[id number] NS Inj 1,000 ML @ 1000 mls/hr 3000 / 3000 IV.SIG BOLUS [facility] Rx#:[id number] Output: Urine 1400 / 1400 Other: # Voids 1 1 # Bowel Movements 0 Weight On Admission 85.7 kg Narrative: General patient is mildly agitated. HEENT extraocular movements are intact, clear oropharyngeal mucosa Cardiovascular S1-S2 audible, tachycardic, no active chest pain. Respiratory clear to auscultation bilaterally Abdomen soft, nontender, normal bowel sounds Extremities lower extremities in restraints. 2+ distal pulses Neuro patient is mildly agitated currently. He received Ativan prior to my examination. Full neurological examination was difficult to assess given the patient's current status. He is able to move all 4 extremities and it appears that sensation is intact bilaterally. Results - Labs CBC & Chem 7: 08/18/18 03:33 08/18/18 03:33 Laboratory Results - last 24 hr 08/17/18 08/17/18 08/17/18 12:18 12:18 12:18 WBC 17.5 H RBC 4.86 Hgb 17.1 H POC Hgb (Calc) 18.0 H Hct 49.2 POC Hct 53.0 H MCV 101.2 H MCH 35.2 H MCHC 34.8 RDW 15.2 Plt Count 330 D MPV 10.7 Prelim Diff (Auto) Neut % (Auto) 87.3 H Lymph % (Auto) 6.0 L Scott % (Auto) 6.3 Eos % (Auto) 0.0 Baso % (Auto) 0.4 Neut # (Auto) 15.2 H Lymph # (Auto) 1.1 Scott # (Auto) 1.1 H Eos # (Auto) 0.0 Baso # (Auto) 0.1 WBC Differential . Seg Neuts % (Manual) Band Neuts % (Manual) Lymphocytes % (Manual) Monocytes % (Manual) Abs Neuts (Manual) Differential Comment Auto diff final Platelet Estimate Platelet Morphology PT 11.6 INR 1.1 APTT 28.6 POC Sodium 129 L Sodium 126 L POC Potassium 4.5 Potassium 4.3 POC Chloride 97 L Chloride 91 L Carbon Dioxide 9.0 L Anion Gap 26 H POC BUN 17 BUN 17 Creatinine 1.03 POC Creatinine 1.1 Estimated GFR 75 L POC Glucose 273 H Random Glucose 264 H Calcium 7.7 L Prot Corrected Calcium Total Bilirubin 0.7 AST 225 H ALT 139 H Alkaline Phosphatase 215 H Total Creatine Kinase 121 CK-MB (CK-2) 1.6 Troponin I 0.07 H B-Natriuretic Peptide Total Protein 8.8 H Albumin 3.2 L Lipase Urine Color Urine Clarity Urine pH Ur Specific [place] Urine Protein Urine Glucose (UA) Urine Ketones Urine Occult Blood Urine Nitrate Urine Bilirubin Urine Urobilinogen Ur Leukocyte Esterase Urine RBC Urine WBC Hyaline Casts Urine Mucus Micro UA Comment Ur Microscopic Review Urine Culture Comments Nasal Screen MRSA (PCR) 08/17/18 08/17/18 08/17/18 12:18 12:18 16:30 WBC RBC Hgb POC Hgb (Calc) Hct POC Hct MCV MCH MCHC RDW Plt Count MPV Prelim Diff (Auto) Neut % (Auto) Lymph % (Auto) Scott % (Auto) Eos % (Auto) Baso % (Auto) Neut # (Auto) Lymph # (Auto) Scott # (Auto) Eos # (Auto) Baso # (Auto) WBC Differential Seg Neuts % (Manual) Band Neuts % (Manual) Lymphocytes % (Manual) Monocytes % (Manual) Abs Neuts (Manual) Differential Comment Platelet Estimate Platelet Morphology PT INR APTT POC Sodium Sodium POC Potassium Potassium POC Chloride Chloride Carbon Dioxide Anion Gap POC BUN BUN Creatinine POC Creatinine Estimated GFR POC Glucose Random Glucose Calcium Prot Corrected Calcium Total Bilirubin AST ALT Alkaline Phosphatase Total Creatine Kinase CK-MB (CK-2) Troponin I B-Natriuretic Peptide 38 Total Protein Albumin Lipase 3158 H Urine Color Yellow Urine Clarity Hazy H Urine pH 5.0 Ur Specific [place] 1.025 Urine Protein 100 H Urine Glucose (UA) 500 or greater Urine Ketones Trace H Urine Occult Blood Negative Urine Nitrate Negative Urine Bilirubin Negative Urine Urobilinogen Less than 2 Ur Leukocyte Esterase Negative Urine RBC 1 Urine WBC 1 Hyaline Casts 1 Urine Mucus Few H Micro UA Comment Culture not ind Ur Microscopic Review Not Reportable Urine Culture Comments Culture not ind Nasal Screen MRSA (PCR) 08/17/18 08/17/18 08/18/18 18:24 19:32 01:45 WBC RBC Hgb POC Hgb (Calc) Hct POC Hct MCV MCH MCHC RDW Plt Count MPV Prelim Diff (Auto) Neut % (Auto) Lymph % (Auto) Scott % (Auto) Eos % (Auto) Baso % (Auto) Neut # (Auto) Lymph # (Auto) Scott # (Auto) Eos # (Auto) Baso # (Auto) WBC Differential Seg Neuts % (Manual) Band Neuts % (Manual) Lymphocytes % (Manual) Monocytes % (Manual) Abs Neuts (Manual) Differential Comment Platelet Estimate Platelet Morphology PT INR APTT POC Sodium Sodium POC Potassium Potassium POC Chloride Chloride Carbon Dioxide Anion Gap POC BUN BUN Creatinine POC Creatinine Estimated GFR POC Glucose 279 H Random Glucose Calcium Prot Corrected Calcium Total Bilirubin AST ALT Alkaline Phosphatase Total Creatine Kinase 245 CK-MB (CK-2) Troponin I 0.07 H B-Natriuretic Peptide Total Protein Albumin Lipase Urine Color Urine Clarity Urine pH Ur Specific [place] Urine Protein Urine Glucose (UA) Urine Ketones Urine Occult Blood Urine Nitrate Urine Bilirubin Urine Urobilinogen Ur Leukocyte Esterase Urine RBC Urine WBC Hyaline Casts Urine Mucus Micro UA Comment Ur Microscopic Review Urine Culture Comments Nasal Screen MRSA (PCR) Not detected 08/18/18 08/18/18 08/18/18 03:33 03:33 03:33 WBC 23.6 H RBC 4.12 L Hgb 14.0 D POC Hgb (Calc) Hct 41.4 POC Hct MCV 100.6 H MCH 33.9 MCHC 33.7 RDW 15.0 Plt Count 235 MPV 10.7 Prelim Diff (Auto) Slide review pending Neut % (Auto) 87.1 H Lymph % (Auto) 6.2 L Scott % (Auto) 6.4 Eos % (Auto) 0.0 Baso % (Auto) 0.3 Neut # (Auto) 20.6 H Lymph # (Auto) 1.5 Scott # (Auto) 1.5 H Eos # (Auto) 0.0 Baso # (Auto) 0.1 WBC Differential Manual diff final Seg Neuts % (Manual) 74 H Band Neuts % (Manual) 21 H Lymphocytes % (Manual) 4 L Monocytes % (Manual) 1 Abs Neuts (Manual) 22.4 H Differential Comment . Platelet Estimate Normal Platelet Morphology Normal PT INR APTT POC Sodium Sodium 135 L POC Potassium Potassium 3.6 POC Chloride Chloride 101 D Carbon Dioxide 21.1 D Anion Gap 13 POC BUN BUN 11 Creatinine 0.81 POC Creatinine Estimated GFR Greater than 89 POC Glucose Random Glucose 245 H Calcium 6.9 L* D Prot Corrected Calcium 6.9 L* Total Bilirubin 1.6 H AST 134 H ALT 92 H Alkaline Phosphatase 147 H Total Creatine Kinase 303 CK-MB (CK-2) Troponin I 0.09 H B-Natriuretic Peptide Total Protein 7.1 D Albumin 2.6 L D Lipase 1492 H Urine Color Urine Clarity Urine pH Ur Specific [place] Urine Protein Urine Glucose (UA) Urine Ketones Urine Occult Blood Urine Nitrate Urine Bilirubin Urine Urobilinogen Ur Leukocyte Esterase Urine RBC Urine WBC Hyaline Casts Urine Mucus Micro UA Comment Ur Microscopic Review Urine Culture Comments Nasal Screen MRSA (PCR) - Imaging Impressions Chest X-Ray 08/17/18 12:25 CONCLUSION: No acute cardiopulmonary disease. Abdomen/Pelvis CT 08/17/18 12:39 CONCLUSION: 1. Pancreatic and peripancreatic inflammation most characteristic of acute pancreatitis. 2. Severe hepatic steatosis. 3. No evidence of intraperitoneal abscess formation or pseudocyst. 4. Ventral hernias containing intestinal loops. 5. No evidence of perforation or obstruction. 6. Stable left adrenal nodule and left renal cysts. 7. Status post splenectomy. Assessment and Plan - Plan This patient is a 52-year-old male with a diagnosis of hypertension, diabetes mellitus, coronary artery disease status post 2 stents in the past, COPD, and alcohol abuse. The patient presented to our emergency room with complaints of abdominal pain. CT scan of the abdomen and pelvis showed findings consistent with pancreatitis. The patient's lipase was significantly elevated. His EKG was concerning for an ST segment elevation SD in the anterolateral leads and a slight elevation in his serum troponins. The patient was subsequently admitted to the intensive care unit. 1. Acute pancreatitis 2. Alcohol withdrawals Patient is currently agitated and alcohol withdrawals. Telemetry shows that the patient has been tachycardic since admission, heart rate is slightly improved in the low 120s now. Continue CIWA protocol. Patient is currently n.p.o., continue IV fluids. CT scan of the abdomen and pelvis shows findings consistent with pancreatitis, no abscess on imaging. 3. Elevated troponins 4. Coronary artery disease The patient presents with abdominal pain. EKG was concerning for ST segment elevation SD in the anterolateral leads. He also had a slight elevation in troponins. Cardiology evaluated the patient and believes the patient's elevation in troponin and EKG findings are from the patient's tachycardia. Plan is to continue aspirin, statin, beta-daphney, PACO inhibitor. He is currently n.p.o., will give aspirin per rectal daily. Continue IV beta-daphney, IV PACO inhibitor. We will continue to follow up with cardiology's recommendations. 5. Hypertension Patient is currently agitated, this is likely contributing to the patient's elevation in blood pressure. Patient is requiring IV medications to control his blood pressure. We will continue to monitor his blood pressure and adjust his antihypertensive medications as needed. 6. Diabetes mellitus Blood sugars currently running in the 200s. He is currently n.p.o. I will continue to monitor his blood sugars and if they continue to remain above 200 he will be given a small dose of Lantus tonight. Corrected calcium is 8.1 Heparin for DVT prophylaxis.
[2018-08-18] MEDS ORDERED: Aspirin 300 MG Supp RECTAL SCH (10:00)
[2018-08-18 11:24] LABS: ABG Base Excess -0.6 mmol/L (-2-2); ABG PCO2 28 mmHg (38-42); ABG PO2 71 mmHG (61-120)
[2018-08-18] MEDS: Vancomycin Inj 1,000 MG in Sodium Chlor 0.9% Inj 250 ML IV.SIG SCH (12:47)
--- NOTE | 2018-08-18 15:54 | ECG ---
Date Performed: 08/17/2018 Time Performed: 12:17:13 PTAGE: 52 years EKG: SINUS TACHYCARDIA OLD ANTERIOR INFARCT CANNOT EXCLUDE ACUTE ANTERIOR INJURY, BUT THE Q-WAVE S ARE OLD FROM THE PRIOR TRACING. PREVIOUS TRACING : 07/21/2018 09.11 DOCTOR: Gaurav Toribio Interpretating Date/Time 08/18/2018 15:52:45
[2018-08-18] MEDS: Lisinopril 10 MG Tablet PO SCH (17:27)
--- NOTE | 2018-08-18 17:53 | ECHRPT ---
Indication: cardiomyopathy CONCLUSIONS Wall thickness is measured at the upper limits of normal. The left ventricular systolic function is severely reduced with an estimated ejection fraction in th e range of 30-35%. Cannot exclude aneursymal apex hypokensis. Mild aortic dilatation at the level of the sinuses of Valsalva. There is mild tricuspid valve regurgitation. The estimated pulmonary arterial pressure is 27 mmHg. BP: / HR: Rhythm: MEASUREMENTS (Male / Female) Normal Values Technical Quality: 2D ECHO LV Diastolic Diameter PLAX 5.5 cm 4.2 - 5.9 / 3.9 - 5.3 cm LV Systolic Diameter PLAX 4.8 cm IVS Diastolic Thickness 1.1 cm 0.6 - 1.0 / 0.6 - 0.9 cm LVPW Diastolic Thickness 1.3 cm 0.6 - 1.0 / 0.6 - 0.9 cm LV Relative Wall Thickness 0.4 RV Internal Dim ED PLAX 2.5 cm LVOT Diameter 2.8 cm Aortic Root Diameter 2.9 cm LV Ejection Fraction MOD BP 55.0 % >= 55 % LV Ejection Fraction MOD 4C 74.8 % LV Ejection Fraction 4C AL 77.4 % LV Ejection Fraction MOD 2C 18.2 % LV Ejection Fraction 2C AL 22.1 % M-MODE Aortic Root Diameter MM 4.8 cm LA Systolic Diameter MM 2.4 cm LA Ao Ratio MM 0.5 AV Cusp Separation MM 2.2 cm DOPPLER LV E' Lateral Velocity 5.4 cm/s LV E' Septal Velocity 4.3 cm/s TR Peak Velocity 208.0 cm/s TR Peak Gradient 17.3 mmHg Right Atrial Pressure 10.0 mmHg Pulmonary Artery Systolic Pressu 27.3 mmHg Right Ventricular Systolic Press 27.3 mmHg PV Peak Velocity 124.0 cm/s PV Peak Gradient 6.2 mmHg FINDINGS LEFT VENTRICLE Wall thickness is measured at the upper limits of normal. The left ventricular systolic function is severely reduced with an estimated ejection fraction in th e range of 30-35%. Cannot exclude aneursymal apex hypokensis. RIGHT VENTRICLE Normal right ventricular size and systolic function. LEFT ATRIUM The left atrial size is normal. RIGHT ATRIUM The right atrial size is normal. ATRIAL SEPTUM Normal atrial septal thickness without atrial level shunting by limited color doppler interrogation. AORTA Mild aortic dilatation at the level of the sinuses of Valsalva. MITRAL VALVE Structurally normal mitral valve. No mitral valve stenosis or regurgitation. AORTIC VALVE Trileaflet aortic valve. No aortic valve stenosis or regurgitation. TRICUSPID VALVE There is mild tricuspid valve regurgitation. The estimated pulmonary arterial pressure is 27 mmHg. PULMONARY VALVE The pulmonary valve is not well visualized. VESSELS The inferior vena cava is normal in size. PERICARDIUM No pericardial effusion. Refugio Soria MD, FACC, [facility] [place]ically Signed[place] Final Date:18 August 2018 17:52
[2018-08-18] MEDS: Multivitamin Inj 10 ML, Thiamine Inj 100 MG, Folic Acid Inj 1 MG in Sodium Chlor 0.9% I... IV.SIG SCH (20:02)
[2018-08-18] MEDS: Metoprolol Tartrate 25 MG Tablet PO SCH (20:03)
[2018-08-19] MEDS: Heparin - SQ 10,000 UNITS/ML Vial SQ SCH ×3 (00:41→17:16)
[2018-08-19] MEDS: HYDROmorphone PF Inj 1 MG/ML Ampul IV.PUSH PRN ×4 (01:08→21:47)
[2018-08-19] MEDS: Sod Chloride 0.9% Inj 1,000 ML IV.CONT SCH ×5 (01:09→20:43)
[2018-08-19] MEDS: Chlorhexidine Gluconate 2% 1 Pack (2 Cloths) TOPICAL SCH (04:46)
[2018-08-19] MEDS: Pantoprazole Inj 40 MG Vial IV.PUSH SCH ×2 (05:46→17:17)
[2018-08-19] MEDS: guaiFENesin 600 MG ER Tablet PO SCH ×2 (08:33→20:35)
[2018-08-19] MEDS: Senna/Docusate Sodium 8.6/50 MG Tablet PO SCH ×2 (08:33→20:35)
[2018-08-19] MEDS: Metoprolol Tartrate 25 MG Tablet PO SCH ×2 (08:33→20:35)
[2018-08-19] MEDS: Sodium Chloride 0.9% 2 ML Flush BID IV.FLUSH SCH ×2 (08:34→20:35)
[2018-08-19] MEDS: Lisinopril 10 MG Tablet PO SCH (09:33)
[2018-08-19 13:37] LABS: Baso # (Auto) 0.1 th/mm3 (0.0-0.2); Baso % (Auto) 0.6 % (0.0-2.0); Eos # (Auto) 0.1 th/mm3 (0.0-0.4); Eos % (Auto) 0.7 % (0.0-4.0); Hematocrit 33.9 % (39.0-51.0); Hemoglobin 11.5 gm/dL (13.0-17.0); Lymph # (Auto) 2.1 th/mm3 (1.0-4.8); Lymph % (Auto) 14.5 % (9.0-44.0); Mean Corpuscular Hemoglobin 35.1 pg (27.0-34.0); Mean Platelet Volume 10.5 fL (7.0-11.0); Mono % (Auto) 7.2 % (0.0-8.0); Platelet Count 156 th/mm3 (150-450); Red Blood Count 3.29 mil/mm3 (4.50-5.90); Red Cell Distribution Width 15.4 % (11.6-17.2); White Blood Count 14.3 th/mm3 (4.0-11.0)
[2018-08-19] MEDS: Vancomycin Inj 1,000 MG in Sodium Chlor 0.9% Inj 250 ML IV.SIG SCH (13:39)
[2018-08-19 14:07] LABS: Alanine Aminotransferase 52 U/L (12-78); Albumin 2.1 g/dL (3.4-5.0); Alkaline Phosphatase 110 U/L (45-117); Anion Gap 13 meq/L (5-15); Aspartate Aminotransferase 82 U/L (15-37); Blood Urea Nitrogen 10 mg/dL (7-18); Chloride 105 meq/L (98-107); Glomerular Filtration Rate Greater Than 89 mL/min (>89); Glucose,Random 166 mg/dL (74-106); Lipase 259 U/L (73-393); Potassium 3.1 meq/L (3.5-5.1); Sodium 139 meq/L (136-145); Total Protein 6.5 g/dL (6.4-8.2)
--- NOTE | 2018-08-19 14:31 | P.PN ---
Subjective Interval history: In nad sleepy. He was agitated in the morning and wanted to go home. However more calm he is off restraints right now. Asking for food. Will advance diet to clear liquid diets today. Repeat labs. See he still with epigastric pain radiating to the back. No fever or chills. No nausea no vomiting no bowel movement. Physical Exam Vital signs: Vital Signs 08/18/18 14:30 08/18/18 14:45 08/18/18 15:00 Temperature Pulse Rate 101 H 100 H 104 H Respiratory Rate 39 H 38 H 42 H Blood Pressure 163/99 H 166/93 H 171/95 H Pulse Oximetry 94 L 94 L 93 L 08/18/18 15:15 08/18/18 15:30 08/18/18 15:45 Temperature Pulse Rate 116 H 103 H 124 H Respiratory Rate 47 H 37 H 52 H Blood Pressure 170/98 H 172/93 H 183/98 H Pulse Oximetry 94 L 95 94 L 08/18/18 16:00 08/18/18 16:15 08/18/18 16:25 Temperature Pulse Rate 119 H 109 H 99 H Respiratory Rate 47 H 41 H 34 H Blood Pressure 178/95 H 180/98 H Pulse Oximetry 95 95 08/18/18 16:32 08/18/18 16:45 08/18/18 17:00 Temperature Pulse Rate 118 H 110 H 89 Respiratory Rate 56 H 42 H 38 H Blood Pressure 194/111 H 187/100 H 188/104 H Pulse Oximetry 97 94 L 95 08/18/18 17:16 08/18/18 18:00 08/18/18 18:16 Temperature Pulse Rate 109 H 100 H 100 H Respiratory Rate 51 H 33 H 42 H Blood Pressure 189/107 H 182/91 H Pulse Oximetry 96 97 96 08/18/18 18:30 08/18/18 19:00 08/18/18 19:30 Temperature Pulse Rate 98 H 97 H 113 H Respiratory Rate 35 H 30 H 36 H Blood Pressure 166/97 H 168/86 H 157/96 H Pulse Oximetry 96 95 96 08/18/18 20:00 08/18/18 20:11 08/18/18 20:18 Temperature 99.1 F Pulse Rate 95 H 106 H 100 H Respiratory Rate 32 H 37 H 26 H Blood Pressure 177/96 H 175/95 H Pulse Oximetry 95 95 96 08/18/18 20:30 08/18/18 21:00 08/18/18 21:25 Temperature Pulse Rate 117 H 99 H 104 H Respiratory Rate 37 H 32 H 33 H Blood Pressure 165/100 H 177/93 H 180/86 H Pulse Oximetry 95 94 L 94 L 08/18/18 21:30 08/18/18 22:00 08/18/18 22:30 Temperature Pulse Rate 101 H 98 H 98 H Respiratory Rate 32 H 30 H 31 H Blood Pressure 170/93 H 169/92 H 156/83 H Pulse Oximetry 94 L 95 94 L 08/18/18 23:00 08/18/18 23:30 08/19/18 00:00 Temperature 98.1 F Pulse Rate 96 H 109 H 103 H Respiratory Rate 31 H 43 H 44 H Blood Pressure 162/93 H 175/95 H 162/88 H Pulse Oximetry 95 95 95 08/19/18 00:30 08/19/18 01:00 08/19/18 01:15 Temperature Pulse Rate 104 H 99 H 92 H Respiratory Rate 41 H 41 H 29 H Blood Pressure 165/91 H 161/104 H Pulse Oximetry 96 95 08/19/18 01:16 08/19/18 01:31 08/19/18 01:40 Temperature Pulse Rate 104 H 103 H Respiratory Rate 32 H 42 H Blood Pressure 186/100 H 185/97 H Pulse Oximetry 97 95 94 L 08/19/18 01:42 08/19/18 02:00 08/19/18 02:03 Temperature Pulse Rate 100 H 107 H 100 H Respiratory Rate 33 H 40 H 34 H Blood Pressure 166/78 H 157/100 H Pulse Oximetry 95 93 L 94 L 08/19/18 02:31 08/19/18 03:00 08/19/18 03:30 Temperature Pulse Rate 105 H 104 H 101 H Respiratory Rate 43 H 26 H 36 H Blood Pressure 165/88 H 166/100 H 168/101 H Pulse Oximetry 95 94 L 92 L 08/19/18 04:00 08/19/18 04:30 08/19/18 04:31 Temperature 98.4 F Pulse Rate 101 H 97 H Respiratory Rate 36 H 38 H Blood Pressure 156/101 H 156/104 H Pulse Oximetry 94 L 94 L 93 L 08/19/18 05:00 08/19/18 06:00 08/19/18 06:07 Temperature Pulse Rate 98 H 97 H Respiratory Rate 36 H 37 H Blood Pressure 166/99 H 161/99 H Pulse Oximetry 94 L 95 95 08/19/18 06:30 08/19/18 07:00 08/19/18 07:30 Temperature Pulse Rate 103 H 100 H 103 H Respiratory Rate 42 H 36 H 38 H Blood Pressure 160/102 H 161/102 H 160/100 H Pulse Oximetry 94 L 93 L 08/19/18 08:00 08/19/18 08:01 08/19/18 08:03 Temperature 98.3 F Pulse Rate 108 H 111 H 102 H Respiratory Rate 52 H 46 H 22 Blood Pressure 159/97 H Pulse Oximetry 94 L 08/19/18 08:30 08/19/18 09:00 08/19/18 09:30 Temperature Pulse Rate 114 H 100 H 92 H Respiratory Rate 43 H 33 H 30 H Blood Pressure 162/97 H 145/94 H 138/89 Pulse Oximetry 98 91 L 08/19/18 10:00 08/19/18 10:30 08/19/18 10:52 Temperature Pulse Rate 102 H 93 H 102 H Respiratory Rate 30 H Blood Pressure 135/81 123/71 Pulse Oximetry 92 L 93 L 93 L 08/19/18 10:53 08/19/18 11:00 08/19/18 11:06 Temperature Pulse Rate 102 H 97 H 98 H Respiratory Rate 24 Blood Pressure 127/86 128/76 Pulse Oximetry 92 L 93 L Intake & Output 08/18/18 08/19/18 08/19/18 18:59 06:59 18:59 Intake Total 610 / 610 511.2 / 511.2 1200 / 1200 Output Total 750 / 750 700 / 700 550 / 550 Balance -140 / -140 -188.8 / -188.8 650 / 650 Weight 84.8 kg Intake: IV 460 / 460 511.2 / 511.2 1100 / 1100 NS Inj 1,000 ML @ 150 mls/hr IV 1000 / 1000 .CONT .Q6H40M [facility] Rx#:[id number] Calcium Chloride Inj 1 GM In NS 110 / 110 Inj 100 ML @ 110 mls/hr IV.SIG ONCE ONE Rx#:[id number] MVI-12 Inj 10 ML Thiamine Inj 511.2 / 511.2 100 MG Folvite Inj 1 MG In NS Inj 500 ML @ 125 mls/hr IV.SIG Q24H [facility] Rx#:[id number] Vancomycin Inj 1,000 MG In NS 250 / 250 Inj 250 ML @ 250 mls/hr IV.SIG Q24H [facility] Rx#:[id number] Rocephin Inj 1,000 MG In NS Inj 100 / 100 100 / 100 100 ML @ 200 mls/hr IV.SIG Q24H [facility] Rx#:[id number] Oral 150 / 150 100 / 100 Output: Urine 750 / 750 Urine Amount (Catheter) 700 / 700 550 / 550 Condom 700 / 700 550 / 550 Other: # Bowel Movements 0 # Incontinent Bowel Movements 2 Narrative: General patient is more awake and alert, he is on and off agitated per nurse. Taken off restraints. Cardiovascular S1-S2 audible, tachycardic, no active chest pain. Respiratory clear to auscultation bilaterally Abdomen soft, nontender, normal bowel sounds Extremities lower extremities off restraints. 2+ distal pulses Neuro patient is sleepy. However he is arousable. He is following commands. No focal deficit. Clear speech. No tremors at this time. - Urinary Catheter Management Condom Cath placed during this visit: no Results - Labs CBC & Chem 7: 08/19/18 13:28 08/19/18 13:28 Laboratory Results - last 24 hr 08/19/18 08/19/18 13:28 13:28 WBC 14.3 H RBC 3.29 L Hgb 11.5 L D Hct 33.9 L MCV 103.0 H MCH 35.1 H MCHC 34.0 RDW 15.4 Plt Count 156 D MPV 10.5 Neut % (Auto) 77.0 H Lymph % (Auto) 14.5 [place] % (Auto) 7.2 Eos % (Auto) 0.7 Baso % (Auto) 0.6 Neut # (Auto) 11.0 H Lymph # (Auto) 2.1 [place] # (Auto) 1.0 H Eos # (Auto) 0.1 Baso # (Auto) 0.1 WBC Differential . Differential Comment Auto diff final Sodium 139 Potassium 3.1 L Chloride 105 Carbon Dioxide 21.0 Anion Gap 13 BUN 10 Creatinine 0.56 L Estimated GFR Greater than 89 Random Glucose 166 H Calcium 7.0 L* Prot Corrected Calcium 7.3 L* Total Bilirubin 1.1 H AST 82 H ALT 52 Alkaline Phosphatase 110 Total Protein 6.5 D Albumin 2.1 L Lipase 259 Microbiology 08/18/18 12:00 Blood - Peripheral Aerobic Blood Culture - Preliminary No growth in 1 day 08/18/18 12:00 Blood - Peripheral Anaerobic Blood Culture - Preliminary No growth in 1 day 08/18/18 11:55 Blood - Peripheral Aerobic Blood Culture - Preliminary No growth in 1 day 08/18/18 11:55 Blood - Peripheral Anaerobic Blood Culture - Preliminary No growth in 1 day Assessment and Plan - Plan This patient is a 52-year-old male with a diagnosis of hypertension, diabetes mellitus, coronary artery disease status post 2 stents in the past, COPD, and alcohol abuse. The patient presented to our emergency room with complaints of abdominal pain. CT scan of the abdomen and pelvis showed findings consistent with pancreatitis. The patient's lipase was significantly elevated. His EKG was concerning for an ST segment elevation [place] in the anterolateral leads and a slight elevation in his serum troponins. The patient was subsequently admitted to the intensive care unit. 1. Acute pancreatitis 2. Alcohol withdrawals Patient is currently agitated and alcohol withdrawals. Telemetry shows that the patient has been tachycardic since admission, heart rate is slightly improved in the low 120s now. Continue CIWA protocol. continue IV fluids. CT scan of the abdomen and pelvis shows findings consistent with pancreatitis, no abscess on imaging. Advance diet to clear liquid diet Trend lipase, kidney indicis, LFTs 3. Elevated troponins 4. Coronary artery disease The patient presents with abdominal pain. EKG was concerning for ST segment elevation [place] in the anterolateral leads. He also had a slight elevation in troponins. Cardiology evaluated the patient and believes the patient's elevation in troponin and EKG findings are from the patient's tachycardia. Plan is to continue aspirin, statin, beta-daphney, PACO inhibitor. He is currently n.p.o., will give aspirin per rectal daily. Continue IV beta-daphney, IV PACO inhibitor. We will continue to follow up with cardiology's recommendations. 5. Hypertension Patient is currently agitated, this is likely contributing to the patient's elevation in blood pressure. Patient is requiring IV medications to control his blood pressure. We will continue to monitor his blood pressure and adjust his antihypertensive medications as needed. 6. Diabetes mellitus Blood sugars currently running in the 200s. He is currently n.p.o. I will continue to monitor his blood sugars and if they continue to remain above 200 he will be given a small dose of Lantus tonight. Corrected calcium is 8.1 Heparin for DVT prophylaxis. Discussed with the patient, nurse. Patient is improving, transfer to [facility] floor. Off restraints. Advance diet to clear liquid diet monitor labs
[2018-08-19] MEDS: Multivitamin Inj 10 ML, Thiamine Inj 100 MG, Folic Acid Inj 1 MG in Sodium Chlor 0.9% I... IV.SIG SCH (20:33)
[2018-08-20] MEDS: Heparin - SQ 10,000 UNITS/ML Vial SQ SCH ×3 (01:52→17:43)
[2018-08-20] MEDS: HYDROmorphone PF Inj 1 MG/ML Ampul IV.PUSH PRN ×6 (01:53→23:37)
[2018-08-20] MEDS: Sod Chloride 0.9% Inj 1,000 ML IV.CONT SCH ×6 (01:53→23:49)
[2018-08-20] MEDS: Pantoprazole Inj 40 MG Vial IV.PUSH SCH ×2 (06:04→17:43)
[2018-08-20] MEDS: Chlorhexidine Gluconate 2% 1 Pack (2 Cloths) TOPICAL SCH (06:05)
[2018-08-20] MEDS: Sodium Chloride 0.9% 2 ML Flush BID IV.FLUSH SCH ×2 (08:11→21:45)
[2018-08-20] MEDS: Metoprolol Tartrate 25 MG Tablet PO SCH ×2 (08:11→21:45)
[2018-08-20] MEDS: guaiFENesin 600 MG ER Tablet PO SCH ×2 (08:11→21:45)
[2018-08-20] MEDS: Senna/Docusate Sodium 8.6/50 MG Tablet PO SCH ×2 (08:11→21:45)
[2018-08-20] MEDS: Lisinopril 10 MG Tablet PO SCH (08:11)
[2018-08-20 08:27] LABS: Baso # (Auto) 0.1 th/mm3 (0.0-0.2); Baso % (Auto) 0.7 % (0.0-2.0); Eos # (Auto) 0.2 th/mm3 (0.0-0.4); Eos % (Auto) 1.5 % (0.0-4.0); Hematocrit 32.1 % (39.0-51.0); Hemoglobin 11.2 gm/dL (13.0-17.0); Lymph # (Auto) 3.1 th/mm3 (1.0-4.8); Mean Corpuscular Hemoglobin 35.3 pg (27.0-34.0); Mean Corpuscular Volume 100.9 fL (80.0-100.0); Mean Platelet Volume 11.5 fL (7.0-11.0); Mono # (Auto) 1.1 th/mm3 (0.0-0.9); Mono % (Auto) 7.4 % (0.0-8.0); Neut # (Auto) 9.8 th/mm3 (1.8-7.7); Neut % (Auto) 68.4 % (16.0-70.0); Platelet Count 172 th/mm3 (150-450); Red Blood Count 3.18 mil/mm3 (4.50-5.90); Red Cell Distribution Width 15.4 % (11.6-17.2); White Blood Count 14.3 th/mm3 (4.0-11.0)
[2018-08-20 09:45] LABS: Alanine Aminotransferase 49 U/L (12-78); Albumin 2.1 g/dL (3.4-5.0); Alkaline Phosphatase 117 U/L (45-117); Anion Gap 10 meq/L (5-15); Aspartate Aminotransferase 86 U/L (15-37); Blood Urea Nitrogen 5 mg/dL (7-18); Calcium 7.4 mg/dL (8.5-10.1); Carbon Dioxide 24.9 meq/L (21.0-32.0); Chloride 103 meq/L (98-107); Glomerular Filtration Rate Greater Than 89 mL/min (>89); Glucose,Random 166 mg/dL (74-106); Lipase 289 U/L (73-393); Sodium 138 meq/L (136-145); Total Protein 6.5 g/dL (6.4-8.2)
--- NOTE | 2018-08-20 09:45 | P.PN ---
Subjective Interval history: This is a pleasant 52 y/o Male admitted with acute Pancreatitis, Chest pain, integrated specialist following on [facility] protocol for Alcohol Withdrawal. 08/20: Stable in his bedroom, to advance diet as tolerated his Lipase has improved, and no signs of Withdrawal. No nausea, vomit or diarrhea. Physical Exam Vital signs: Vital Signs 08/19/18 10:00 08/19/18 10:30 08/19/18 10:52 Temperature Pulse Rate 102 H 93 H 102 H Respiratory Rate 30 H Blood Pressure 135/81 123/71 Pulse Oximetry 92 L 93 L 93 L 08/19/18 10:53 08/19/18 11:00 08/19/18 11:06 Temperature Pulse Rate 102 H 97 H 98 H Respiratory Rate 24 Blood Pressure 127/86 128/76 Pulse Oximetry 92 L 93 L 08/19/18 15:45 08/19/18 16:00 08/19/18 20:00 Temperature 97.6 F 97.8 F Pulse Rate 104 H 109 H 108 H Respiratory Rate 16 20 20 Blood Pressure 173/120 H 171/111 H Pulse Oximetry 98 94 L 08/19/18 20:12 08/20/18 00:00 08/20/18 00:02 Temperature 98.0 F Pulse Rate 95 H 88 83 Respiratory Rate 16 20 22 Blood Pressure 151/102 H Pulse Oximetry 93 L 93 L 08/20/18 04:00 08/20/18 04:06 Temperature 98.1 F Pulse Rate 89 91 H Respiratory Rate 20 16 Blood Pressure 172/108 H Pulse Oximetry 93 L Intake & Output 08/19/18 08/20/18 08/20/18 18:59 06:59 18:59 Intake Total 1690 / 1690 4271.2 / 4271.2 1000 / 1000 Output Total 550 / 550 1800 / 1800 Balance 1140 / 1140 2471.2 / 2471.2 1000 / 1000 Intake: IV 1350 / 1350 3511.2 / 3511.2 1000 / 1000 NS Inj 1,000 ML @ 150 mls/hr IV 1000 / 1000 3000 / 3000 1000 / 1000 .CONT .Q6H40M [facility] Rx#:[id number] MVI-12 Inj 10 ML Thiamine Inj 511.2 / 511.2 100 MG Folvite Inj 1 MG In NS Inj 500 ML @ 125 mls/hr IV.SIG Q24H [facility] Rx#:[id number] Vancomycin Inj 1,000 MG In NS 250 / 250 Inj 250 ML @ 250 mls/hr IV.SIG Q24H [facility] Rx#:[id number] Rocephin Inj 1,000 MG In NS Inj 100 / 100 100 ML @ 200 mls/hr IV.SIG Q24H [facility] Rx#:[id number] Oral 340 / 340 760 / 760 Output: Urine 1800 / 1800 Urine Amount (Catheter) 550 / 550 Condom 550 / 550 Other: # Voids 3 Date of Last Bowel Movement 08/19/18 # Bowel Movements 3 # Incontinent Bowel Movements 2 Narrative: General: no acute distress no signs of withdrawal. Cardiovascular S1-S2 audible, tachycardic, no active chest pain. Respiratory clear to auscultation bilaterally Abdomen soft, nontender, normal bowel sounds Extremities: No clubbing cyanosis or edema. Neuro: No signs of withdrawal. - Urinary Catheter Management Condom Cath placed during this visit: no Results - Labs CBC & Chem 7: 08/20/18 06:50 08/21/18 04:16 Laboratory Results - last 24 hr 08/19/18 08/19/18 08/20/18 13:28 13:28 06:50 WBC 14.3 H 14.3 H RBC 3.29 L 3.18 L Hgb 11.5 L D 11.2 L Hct 33.9 L 32.1 L MCV 103.0 H 100.9 H MCH 35.1 H 35.3 H MCHC 34.0 35.0 RDW 15.4 15.4 Plt Count 156 D 172 MPV 10.5 11.5 H Prelim Diff (Auto) Slide review pending Neut % (Auto) 77.0 H 68.4 Lymph % (Auto) 14.5 22.0 Rock % (Auto) 7.2 7.4 Eos % (Auto) 0.7 1.5 Baso % (Auto) 0.6 0.7 Neut # (Auto) 11.0 H 9.8 H Lymph # (Auto) 2.1 3.1 Rock # (Auto) 1.0 H 1.1 H Eos # (Auto) 0.1 0.2 Baso # (Auto) 0.1 0.1 WBC Differential . Differential Comment Auto diff final . Sodium 139 Potassium 3.1 L Chloride 105 Carbon Dioxide 21.0 Anion Gap 13 BUN 10 Creatinine 0.56 L Estimated GFR Greater than 89 Random Glucose 166 H Calcium 7.0 L* Prot Corrected Calcium 7.3 L* Total Bilirubin 1.1 H AST 82 H ALT 52 Alkaline Phosphatase 110 Total Protein 6.5 D Albumin 2.1 L Lipase 259 Microbiology 08/18/18 12:00 Blood - Peripheral Aerobic Blood Culture - Preliminary No growth in 1 day 08/18/18 12:00 Blood - Peripheral Anaerobic Blood Culture - Preliminary No growth in 1 day 08/18/18 11:55 Blood - Peripheral Aerobic Blood Culture - Preliminary No growth in 1 day 08/18/18 11:55 Blood - Peripheral Anaerobic Blood Culture - Preliminary No growth in 1 day - Imaging Chest X-Ray 08/17/18 12:25 CONCLUSION: No acute cardiopulmonary disease. Abdomen/Pelvis CT 08/17/18 12:39 CONCLUSION: 1. Pancreatic and peripancreatic inflammation most characteristic of acute pancreatitis. 2. Severe hepatic steatosis. 3. No evidence of intraperitoneal abscess formation or pseudocyst. 4. Ventral hernias containing intestinal loops. 5. No evidence of perforation or obstruction. 6. Stable left adrenal nodule and left renal cysts. 7. Status post splenectomy. - Procedures None Assessment and Plan - Plan This patient is a 52-year-old male with a diagnosis of hypertension, diabetes mellitus, coronary artery disease status post 2 stents in the past, COPD, and alcohol abuse. The patient presented to our emergency room with complaints of abdominal pain. CT scan of the abdomen and pelvis showed findings consistent with pancreatitis. The patient's lipase was significantly elevated. His EKG was concerning for an ST segment elevation CT in the anterolateral leads and a slight elevation in his serum troponins. The patient was subsequently admitted to the intensive care unit. 1. Acute pancreatitis Improved. Lipase 289 2. Alcohol withdrawals No signs of withdrawal. Continue CIWA protocol. continue IV fluids. CT scan of the abdomen and pelvis shows findings consistent with pancreatitis, no abscess on imaging. Advance diet to regular diet. 3. Elevated troponin seen by vendor management specialist do not think is ACS. 4. Coronary artery disease The patient presents with abdominal pain. EKG was concerning for ST segment elevation CT in the anterolateral leads. Cardiology evaluated the patient and believes the patient's elevation in troponin and EKG findings are from the patient's tachycardia. continue aspirin, statin, beta-daphney, PACO inhibitor continue Beta blockers and PACO inhibitor. 5. Hypertension Uncontrolled continue present care. he is on IV fluids. 6. Diabetes mellitus better control following. Corrected calcium is 8.1 Heparin for DVT prophylaxis. Code Status: Full code. Discussed Condition With: Patient and Nurse Miss Coy. Discharge Planning: Expected in the next 24 hours.
[2018-08-20 10:26] LABS: Eosinophils 1 % (0-4); Lymphocytes 23 % (9-44); Monocytes 2 % (0-8)
[2018-08-20 10:27] LABS: Pappenheimer Bodies Present; Platelet Estimate Normal (Normal)
[2018-08-20 11:45] LABS: Magnesium 1.5 mg/dL (1.5-2.5); Phosphorus 1.3 mg/dL (2.5-4.9)
[2018-08-20] MEDS: Vancomycin Inj 1,000 MG in Sodium Chlor 0.9% Inj 250 ML IV.SIG SCH (12:21)
[2018-08-20] MEDS ORDERED: SODIUM CHLOR 0.9% IV.SIG ONE (16:00)
[2018-08-20] MEDS ORDERED: POTASSIUM PHOSPHATE IV.SIG ONE (16:00)
[2018-08-20] MEDS ORDERED: Magnesium Sulfate Inj 2 GM in Sodium Chlor 0.9% Inj 96 ML IV.SIG ONE (16:00)
[2018-08-21] MEDS: Heparin - SQ 10,000 UNITS/ML Vial SQ SCH ×3 (00:29→17:12)
[2018-08-21] MEDS: HYDROmorphone PF Inj 1 MG/ML Ampul IV.PUSH PRN ×3 (03:40→12:47)
[2018-08-21] MEDS: Chlorhexidine Gluconate 2% 1 Pack (2 Cloths) TOPICAL SCH (03:42)
[2018-08-21] MEDS: Pantoprazole Inj 40 MG Vial IV.PUSH SCH ×2 (06:05→17:12)
[2018-08-21] MEDS: Sod Chloride 0.9% Inj 1,000 ML IV.CONT SCH ×3 (06:05→13:50)
[2018-08-21 06:38] LABS: Anion Gap 11 meq/L (5-15); Blood Urea Nitrogen 5 mg/dL (7-18); Carbon Dioxide 23.3 meq/L (21.0-32.0); Chloride 104 meq/L (98-107); Glomerular Filtration Rate Greater Than 89 mL/min (>89); Glucose,Random 172 mg/dL (74-106); Potassium 3.3 meq/L (3.5-5.1); Sodium 138 meq/L (136-145)
[2018-08-21 06:39] LABS: Calcium 7.8 mg/dL (8.5-10.1); Magnesium 1.9 mg/dL (1.5-2.5)
[2018-08-21] MEDS: Senna/Docusate Sodium 8.6/50 MG Tablet PO SCH ×2 (08:53→21:16)
[2018-08-21] MEDS: Metoprolol Tartrate 25 MG Tablet PO SCH ×2 (08:53→21:17)
[2018-08-21] MEDS: guaiFENesin 600 MG ER Tablet PO SCH ×2 (08:54→21:15)
[2018-08-21] MEDS: Lisinopril 10 MG Tablet PO SCH (08:54)
[2018-08-21] MEDS: Sodium Chloride 0.9% 2 ML Flush BID IV.FLUSH SCH ×2 (08:55→21:17)
[2018-08-21] MEDS ORDERED: Potassium Phosphate Inj 15 MMOL in Sodium Chlor 0.9% Inj 150 ML IV.SIG ONE (12:33)
[2018-08-21] MEDS ORDERED: Magnesium Sulfate Inj 2 GM in Sodium Chlor 0.9% Inj 96 ML IV.SIG ONE (12:33)
[2018-08-21] MEDS: Vancomycin Inj 1,000 MG in Sodium Chlor 0.9% Inj 250 ML IV.SIG SCH (13:49)
[2018-08-21] MEDS ORDERED: LORazepam 1 MG Tablet PO PRN (15:10)
--- NOTE | 2018-08-21 15:20 | P.PN ---
Subjective Interval history: This is a pleasant 52 y/o Male admitted with acute Pancreatitis, Chest pain, retail service specialist following on [facility] protocol for Alcohol Withdrawal. 08/20: Stable in his bedroom, to advance diet as tolerated his Lipase has improved, and no signs of Withdrawal. 08/21: Seen in his bedroom, stable no nausea, vomit or diarrhea, no sings of withdrawal at this time, may discharge later today. if okay with Cardiology. Physical Exam Vital signs: Vital Signs 08/20/18 16:00 08/20/18 17:39 08/20/18 20:00 Temperature 97.9 F 98 F Pulse Rate 94 H 90 93 H Respiratory Rate 20 20 20 Blood Pressure 175/118 H 167/109 H Pulse Oximetry 94 L 97 08/20/18 20:14 08/21/18 00:00 08/21/18 00:29 Temperature 98 F Pulse Rate 83 96 H Respiratory Rate 20 16 Blood Pressure 164/106 H Pulse Oximetry 96 93 L 08/21/18 03:55 08/21/18 04:00 08/21/18 08:00 Temperature 97.7 F 98.7 F Pulse Rate 95 H 96 H 82 Respiratory Rate 16 20 15 Blood Pressure 136/88 160/102 H Pulse Oximetry 93 L 99 08/21/18 08:39 08/21/18 12:00 08/21/18 12:13 Temperature 98.2 F Pulse Rate 96 H 86 96 H Respiratory Rate 16 15 16 Blood Pressure 160/105 H Pulse Oximetry 100 Intake & Output 08/20/18 08/21/18 08/21/18 18:59 06:59 18:59 Intake Total 3370 / 3370 2820 / 2820 1100 / 1100 Output Total 975 / 975 650 / 650 Balance 2395 / 2395 2170 / 2170 1100 / 1100 Weight 87.6 kg Intake: IV 0 / 2050 2157 / 2157 1100 / 1100 NS Inj 1,000 ML @ 150 mls/hr IV 1600 / 1600 2000 / 2000 1000 / 1000 .CONT .Q6H40M [facility] Rx#:[id number] Magnesium Sulfate Inj 2 GM In 100 / 100 NS Inj 96 ML @ 50 mls/hr IV.SIG ONCE ONE Rx#:[id number] Potassium Phosphate Inj 21 MMOL 157 / 157 In NS Inj 150 ML @ 38.75 mls/ hr IV.SIG ONCE ONE Rx#:[id number] Vancomycin Inj 1,000 MG In NS 250 / 250 Inj 250 ML @ 250 mls/hr IV.SIG Q24H [facility] Rx#:[id number] Rocephin Inj 1,000 MG In NS Inj 100 / 100 100 / 100 100 ML @ 200 mls/hr IV.SIG Q24H [facility] Rx#:[id number] Oral 1320 / 1320 663 / 663 Output: Urine 975 / 975 650 / 650 Other: Date of Last Bowel Movement 08/19/18 08/19/18 08/20/18 # Bowel Movements 2 Narrative: General: no acute distress no signs of withdrawal. Cardiovascular S1-S2 audible, tachycardic, no active chest pain. Respiratory clear to auscultation bilaterally Abdomen soft, nontender, normal bowel sounds Extremities: No clubbing cyanosis or edema. Neuro: No signs of withdrawal. - Urinary Catheter Management Condom Cath placed during this visit: no Results - Labs CBC & Chem 7: 08/20/18 06:50 08/21/18 04:16 Laboratory Results - last 24 hr 08/21/18 04:16 Sodium 138 Potassium 3.3 L Chloride 104 Carbon Dioxide 23.3 Anion Gap 11 BUN 5 L Creatinine 0.51 L Estimated GFR Greater than 89 Random Glucose 172 H Calcium 7.8 L Phosphorus 2.0 L Magnesium 1.9 Microbiology 08/18/18 12:00 Blood - Peripheral Aerobic Blood Culture - Preliminary No growth in 3 days 08/18/18 12:00 Blood - Peripheral Anaerobic Blood Culture - Preliminary No growth in 3 days 08/18/18 11:55 Blood - Peripheral Aerobic Blood Culture - Preliminary No growth in 3 days 08/18/18 11:55 Blood - Peripheral Anaerobic Blood Culture - Preliminary No growth in 3 days - Imaging Chest X-Ray 08/17/18 12:25 CONCLUSION: No acute cardiopulmonary disease. Abdomen/Pelvis CT 08/17/18 12:39 CONCLUSION: 1. Pancreatic and peripancreatic inflammation most characteristic of acute pancreatitis. 2. Severe hepatic steatosis. 3. No evidence of intraperitoneal abscess formation or pseudocyst. 4. Ventral hernias containing intestinal loops. 5. No evidence of perforation or obstruction. 6. Stable left adrenal nodule and left renal cysts. 7. Status post splenectomy. - Procedures None Assessment and Plan - Plan This patient is a 52-year-old male with a diagnosis of hypertension, diabetes mellitus, coronary artery disease status post 2 stents in the past, COPD, and alcohol abuse. The patient presented to our emergency room with complaints of abdominal pain. CT scan of the abdomen and pelvis showed findings consistent with pancreatitis. The patient's lipase was significantly elevated. His EKG was concerning for an ST segment elevation [place] in the anterolateral leads and a slight elevation in his serum troponins. The patient was subsequently admitted to the intensive care unit. 1. Acute pancreatitis Improved. Lipase 289 2. Alcohol withdrawals no signs of withdrawal. No signs of withdrawal. Continue CIWA protocol. continue IV fluids. CT scan of the abdomen and pelvis shows findings consistent with pancreatitis, no abscess on imaging. Advance diet to regular diet. 3. Elevated troponin seen by auricular detoxification specialist do not think is ACS. 4. Coronary artery disease The patient presents with abdominal pain. EKG was concerning for ST segment elevation [place] in the anterolateral leads. Cardiology evaluated the patient and believes the patient's elevation in troponin and EKG findings are from the patient's tachycardia. continue aspirin, statin, beta-daphney, PACO inhibitor continue Beta blockers and PACO inhibitor. 5. Hypertension Uncontrolled continue present care. he is on IV fluids. continue present medicines. 6. Diabetes mellitus better control continue sliding scale. 7. Electrolyte derangement replaced will continue magnesium and Potassium follow in am tomorrow. 8. Leukocytosis no clear source of infection will continue present care and follow if okay in am will follow off antibiotics blood culture negative. Corrected calcium is 8.1 Heparin for DVT prophylaxis. Code Status: Full code. Discussed Condition With: Patient and nurse Miss Cleveland Discharge Planning: Expected in the next 24 hours.
[2018-08-21] MEDS: Insulin NovoLOG Aspart Correctional Sugar Inj SQ SCH ×2 (17:54→21:25)
[2018-08-22] MEDS: Heparin - SQ 10,000 UNITS/ML Vial SQ SCH ×3 (01:26→16:59)
[2018-08-22] MEDS: Insulin NovoLOG Aspart Correctional Sugar Inj SQ SCH ×5 (03:48→21:53)
[2018-08-22] MEDS: Chlorhexidine Gluconate 2% 1 Pack (2 Cloths) TOPICAL SCH (03:48)
[2018-08-22] MEDS: Pantoprazole Inj 40 MG Vial IV.PUSH SCH ×2 (05:39→17:07)
[2018-08-22] MEDS: guaiFENesin 600 MG ER Tablet PO SCH ×2 (08:04→21:52)
[2018-08-22] MEDS: Metoprolol Tartrate 25 MG Tablet PO SCH ×2 (08:04→21:52)
[2018-08-22] MEDS: Lisinopril 10 MG Tablet PO SCH (08:04)
[2018-08-22] MEDS: Senna/Docusate Sodium 8.6/50 MG Tablet PO SCH ×2 (08:04→21:55)
[2018-08-22] MEDS: Sodium Chloride 0.9% 2 ML Flush BID IV.FLUSH SCH ×2 (08:04→21:53)
--- NOTE | 2018-08-22 09:32 | P.PN ---
Subjective Interval history: This is a pleasant 52 y/o Male admitted with acute Pancreatitis, Chest pain, office services specialist following on [facility] protocol for Alcohol Withdrawal. 08/20: Stable in his bedroom, to advance diet as tolerated his Lipase has improved, and no signs of Withdrawal. 08/21: Seen in his bedroom, stable, no sings of withdrawal at this time, may discharge later today. if okay with Cardiology. 08/22: Stable in his bedroom, no nausea, vomit or diarrhea, asking for Stress test, asked for office services specialist for clearance for discharge. Physical Exam Vital signs: Vital Signs 08/21/18 12:00 08/21/18 12:13 08/21/18 16:00 Temperature 98.2 F 98.1 F Pulse Rate 83 96 H 95 H Respiratory Rate 15 16 17 Blood Pressure 160/105 H 165/101 H Pulse Oximetry 100 100 08/21/18 20:00 08/21/18 20:51 08/22/18 00:00 Temperature 97.7 F 98.3 F Pulse Rate 89 76 Respiratory Rate 22 20 Blood Pressure 158/100 H 146/97 H Pulse Oximetry 95 97 96 08/22/18 03:38 08/22/18 04:00 08/22/18 06:10 Temperature 98 F Pulse Rate 88 Respiratory Rate 18 20 18 Blood Pressure 140/98 H Pulse Oximetry 95 08/22/18 07:56 Temperature Pulse Rate Respiratory Rate 18 Blood Pressure Pulse Oximetry Intake & Output 08/21/18 08/22/18 08/22/18 18:59 06:59 18:59 Intake Total 1855 / 1855 903 / 903 Balance 1855 / 1855 903 / 903 Weight 87.4 kg Intake: IV 1855 / 1855 NS Inj 1,000 ML @ 150 mls/hr IV 1250 / 1250 .CONT .Q6H40M [facility] Rx#:[id number] Magnesium Sulfate Inj 2 GM In 100 / 100 NS Inj 96 ML @ 50 mls/hr IV.SIG ONCE ONE Rx#:[id number] Potassium Phosphate Inj 15 MMOL 155 / 155 In NS Inj 150 ML @ 38.75 mls/ hr IV.SIG ONCE ONE Rx#:[id number] Vancomycin Inj 1,000 MG In NS 250 / 250 Inj 250 ML @ 250 mls/hr IV.SIG Q24H [facility] Rx#:[id number] Rocephin Inj 1,000 MG In NS Inj 100 / 100 100 ML @ 200 mls/hr IV.SIG Q24H [facility] Rx#:[id number] Oral 903 / 903 Other: # Voids 2 Date of Last Bowel Movement 08/20/18 08/22/18 # Bowel Movements 1 Narrative: General: no acute distress no signs of withdrawal. Cardiovascular S1-S2 audible, tachycardic, no active chest pain. Respiratory clear to auscultation bilaterally Abdomen soft, nontender, normal bowel sounds Extremities: No clubbing cyanosis or edema. Neuro: No signs of withdrawal. - Urinary Catheter Management Condom Cath placed during this visit: no Results - Labs CBC & Chem 7: 08/20/18 06:50 08/22/18 10:38 Laboratory Results - last 24 hr 08/21/18 08/21/18 08/22/18 17:49 20:54 03:41 POC Glucose 251 H 216 H 266 H 08/22/18 07:13 POC Glucose 186 H Microbiology 08/18/18 12:00 Blood - Peripheral Aerobic Blood Culture - Preliminary No growth in 3 days 08/18/18 12:00 Blood - Peripheral Anaerobic Blood Culture - Preliminary No growth in 3 days 08/18/18 11:55 Blood - Peripheral Aerobic Blood Culture - Preliminary No growth in 3 days 08/18/18 11:55 Blood - Peripheral Anaerobic Blood Culture - Preliminary No growth in 3 days - Imaging Chest X-Ray 08/17/18 12:25 CONCLUSION: No acute cardiopulmonary disease. Abdomen/Pelvis CT 08/17/18 12:39 CONCLUSION: 1. Pancreatic and peripancreatic inflammation most characteristic of acute pancreatitis. 2. Severe hepatic steatosis. 3. No evidence of intraperitoneal abscess formation or pseudocyst. 4. Ventral hernias containing intestinal loops. 5. No evidence of perforation or obstruction. 6. Stable left adrenal nodule and left renal cysts. 7. Status post splenectomy. - Procedures None Assessment and Plan - Plan This patient is a 52-year-old male with a diagnosis of hypertension, diabetes mellitus, coronary artery disease status post 2 stents in the past, COPD, and alcohol abuse. The patient presented to our emergency room with complaints of abdominal pain. CT scan of the abdomen and pelvis showed findings consistent with pancreatitis. The patient's lipase was significantly elevated. His EKG was concerning for an ST segment elevation [place] in the anterolateral leads and a slight elevation in his serum troponins. The patient was subsequently admitted to the intensive care unit. 1. Acute pancreatitis Improved. Lipase 289 2. Alcohol withdrawals no signs of withdrawal. Continue CIWA protocol. continue IV fluids. CT scan of the abdomen and pelvis shows findings consistent with pancreatitis, no abscess on imaging. Advance diet to regular diet. 3. Elevated troponin seen by vehicle care specialist do not think is ACS. he patient states he wants an Stress test will be followed by office services specialist tomorrow morning and probable will discharge home. 4. Coronary artery disease The patient presents with abdominal pain. EKG was concerning for ST segment elevation [place] in the anterolateral leads. Cardiology evaluated the patient and believes the patient's elevation in troponin and EKG findings are from the patient's tachycardia. continue aspirin, statin, beta-daphney, PACO inhibitor continue Beta blockers and PACO inhibitor. 5. Hypertension better control started on Amlodipine 5 mg daily. 6. Diabetes mellitus better control continue sliding scale. 7. Electrolyte derangement replaced 8. Leukocytosis no clear source of infection will continue present care and follow if okay in am will follow off antibiotics blood culture negative. Corrected calcium is 8.1 Heparin for DVT prophylaxis. Code Status: Full code. Discussed Condition With: Patient and Nurse Miss Cleveland Discharge Planning: Expected in the next 24 hours.
[2018-08-22 11:26] LABS: Anion Gap 10 meq/L (5-15); Blood Urea Nitrogen 7 mg/dL (7-18); Calcium 8.2 mg/dL (8.5-10.1); Chloride 103 meq/L (98-107); Glomerular Filtration Rate Greater Than 89 mL/min (>89); Glucose,Random 235 mg/dL (74-106); Potassium 3.3 meq/L (3.5-5.1); Sodium 138 meq/L (136-145)
[2018-08-22] MEDS: amLODIPine 5 MG Tablet PO SCH (17:07)
[2018-08-23] MEDS: Heparin - SQ 10,000 UNITS/ML Vial SQ SCH ×2 (00:42→08:03)
[2018-08-23] MEDS: Insulin NovoLOG Aspart Correctional Sugar Inj SQ SCH ×3 (02:51→13:13)
[2018-08-23] MEDS: Pantoprazole Inj 40 MG Vial IV.PUSH SCH (05:20)
[2018-08-23 06:48] VITALS: RESP 18
[2018-08-23] MEDS: guaiFENesin 600 MG ER Tablet PO SCH (08:02)
[2018-08-23] MEDS: amLODIPine 5 MG Tablet PO SCH (08:02)
[2018-08-23] MEDS: Metoprolol Tartrate 25 MG Tablet PO SCH (08:03)
[2018-08-23] MEDS: Lisinopril 10 MG Tablet PO SCH (08:03)
[2018-08-23] MEDS: Sodium Chloride 0.9% 2 ML Flush BID IV.FLUSH SCH (08:09)
[2018-08-23] MEDS: Senna/Docusate Sodium 8.6/50 MG Tablet PO SCH (08:10)
[2018-08-23 08:12] LABS: Anion Gap 11 meq/L (5-15); Blood Urea Nitrogen 8 mg/dL (7-18); Calcium 8.7 mg/dL (8.5-10.1); Carbon Dioxide 24.8 meq/L (21.0-32.0); Chloride 99 meq/L (98-107); Glomerular Filtration Rate Greater Than 89 mL/min (>89); Glucose,Random 147 mg/dL (74-106); Potassium 3.8 meq/L (3.5-5.1); Sodium 135 meq/L (136-145)
--- NOTE | 2018-08-23 08:29 | P.PNCA ---
Subjective Interval history: Denies CP, dyspnea, dizziness, palpitations, nausea. Medications and Allergies Active Medications: Active Medications Acetaminophen (Tylenol) 650 mg PO Q4H PRN PRN Reason: Temp > 100.4 Hydrocodone Bitart/Acetaminophen ([place] 10/325) 1 tab PO Q4H PRN PRN Reason: PAIN SCALE 6 TO 10 Last Admin: 08/23/18 06:35 Dose: 1 tab Al Hydroxide/Mg Hydroxide (Milk Of Magnesia Liq) 30 ml PO Q12H PRN PRN Reason: Mild Constipation Amlodipine Besylate (Norvasc) 5 mg PO DAILY [facility] Last Admin: 08/23/18 08:02 Dose: 5 mg Aspirin (Aspirin Chew) 81 mg PO DAILY [facility] Last Admin: 08/23/18 08:03 Dose: 81 mg Bisacodyl (Dulcolax Supp) 10 mg RECTAL DAILY PRN PRN Reason: SEVERE CONSITIPATION Clonidine HCl (Catapres) 0.1 mg PO Q8H PRN PRN Reason: SYS BP GREATER THAN 160 MMHG Last Admin: 08/21/18 19:49 Dose: 0.1 mg Enalaprilat (Vasotec Inj) 1.25 mg IV.PUSH BID [facility] Last Admin: 08/23/18 08:03 Dose: 1.25 mg Flumazenil (Romazecon Inj) 0.2 mg IV.PUSH Q1M PRN PRN Reason: OVERSEDATION Guaifenesin (Mucinex Er) 600 mg PO BID [facility] Last Admin: 08/23/18 08:02 Dose: 600 mg Haloperidol Lactate (Haldol Inj) 1 mg IV.PUSH Q15M PRN PRN Reason: for severe agitation Last Admin: 08/18/18 11:21 Dose: 1 mg Heparin Sodium (Porcine) (Heparin Inj) 5,000 units SQ Q8H [facility] Last Admin: 08/23/18 08:03 Dose: 5,000 units Ceftriaxone Sodium 1,000 mg/ (Sodium Chloride) 100 mls @ 200 mls/hr IV.SIG Q24H [facility] Last Infusion: 08/22/18 12:27 Dose: Infused Insulin Aspart (Novolog Insulin [place] Sugar Inj) 0 unit SQ 08,12,17,21, 03 [facility]; Protocol Last Admin: 08/23/18 08:05 Dose: 1 unit Lactulose (Lactulose Liq) 30 ml PO DAILY PRN PRN Reason: SEVERE CONSITIPATION Lisinopril (Prinivil) 10 mg PO DAILY [facility] Last Admin: 08/23/18 08:03 Dose: 10 mg Lorazepam (Ativan) 1 mg PO Q6H PRN PRN Reason: for CIWA 8-10 Metoprolol Tartrate (Lopressor) 25 mg PO BID [facility] Last Admin: 08/23/18 08:03 Dose: 25 mg Multivitamins (Theragran) 1 tab PO DAILY [facility] Last Admin: 08/23/18 08:03 Dose: 1 tab Ondansetron HCl (Zofran Inj) 4 mg IV.PUSH Q4H PRN PRN Reason: NAUSEA OR VOMITING Last Admin: 08/22/18 21:49 Dose: 4 mg Pantoprazole Sodium (Protonix Inj) 40 mg IV.PUSH Q12H [facility] Last Admin: 08/23/18 05:20 Dose: 40 mg Senna/Docusate Sodium (Kristen-Colace) 1 tab PO BID [facility] Last Admin: 08/23/18 08:10 Dose: Not Given Sennosides (Senokot) 17.2 mg PO Q12H PRN PRN Reason: Moderate Constipation Sodium Chloride (Ns Flush) 2 ml IV.FLUSH BID [facility] Last Admin: 08/23/18 08:09 Dose: 2 ml Sodium Chloride (Ns Flush) 2 ml IV.FLUSH PRN PRN PRN Reason: FLUSH AFTER USING IV ACCESS Thiamine HCl (Vitamin B1) 100 mg PO DAILY [facility] Last Admin: 08/23/18 08:02 Dose: 100 mg Allergies Allergy/AdvReac Type Severity Reaction Status Date / Time No Known Allergies Allergy Verified 08/17/18 12:18 Home Medications Medication Instructions Recorded Confirmed Type ondansetron [Zofran ODT] 4 mg PO QID PRN 07/21/18 08/17/18 History Physical Exam Vital signs: Vital Signs 08/22/18 12:00 08/22/18 15:11 08/22/18 16:00 Temperature 97.2 F L 98.4 F Pulse Rate 76 74 79 Respiratory Rate 14 14 Blood Pressure 158/97 H 148/92 H 154/103 H Pulse Oximetry 100 97 100 08/22/18 20:00 08/23/18 00:00 08/23/18 00:09 Temperature 98.3 F 98 F Pulse Rate 79 80 74 Respiratory Rate 20 18 Blood Pressure 165/99 H 152/98 H Pulse Oximetry 97 96 08/23/18 04:00 Temperature 97.9 F Pulse Rate 77 Respiratory Rate 18 Blood Pressure 159/94 H Pulse Oximetry 96 Intake & Output 08/22/18 08/23/18 08/23/18 18:59 06:59 18:59 Intake Total 1060 / 1060 480 / 480 Balance 1060 / 1060 480 / 480 Intake: IV 100 / 100 Rocephin Inj 1,000 MG In NS Inj 100 / 100 100 ML @ 200 mls/hr IV.SIG Q24H [facility] Rx#:[id number] Oral 960 / 960 480 / 480 Other: # Voids 3 3 Date of Last Bowel Movement 08/22/18 08/22/18 - Constitutional no acute distress - Routine Neck Exam Absent: JVD - Routine Respiratory Exam Present: CTA bilaterally - Routine Cardiovascular Exam Present: RRR, S1, S2. Absent: murmur, gallop - Routine Abdominal Exam Present: soft, normoactive bowel sounds. Absent: tenderness, organomegaly - Routine Extremities Exam Absent: cyanosis, clubbing, edema - Urinary Catheter Management Condom Cath placed during this visit: no Results 08/20/18 06:50 08/23/18 04:40 Comprehensive Metabolic Panel 08/22/18 08/23/18 Range/Units 10:38 04:40 Sodium 138 135 L (136-145) meq/L Potassium 3.3 L 3.8 (3.5-5.1) meq/L Chloride 103 99 (98-107) meq/L Carbon Dioxide 25.0 24.8 (21.0-32.0) meq/L BUN 7 8 (7-18) mg/dL Creatinine 0.64 0.49 L (0.60-1.30) mg/dL Calcium 8.2 L 8.7 (8.5-10.1) mg/dL Intake and Output 08/22/18 08/23/18 08/23/18 22:59 06:59 14:59 Intake Total 960 / 960 480 / 480 Balance 960 / 960 480 / 480 Intake: Oral 960 / 960 480 / 480 Other: # Voids 3 3 Date of Last Bowel Movement 08/22/18 Assessment and Plan - Assessment (1) Coronary artery disease Code(s): I25.10 - Atherosclerotic heart disease of [place] coronary artery without angina pectoris Status: Chronic Plan: History of [place], 2 coronary stents 2000. Cardiac status overall stable. No recent angina. Slight elevations in troponin possibly due to tachycardia from abdominal pain, alcohol withdrawal. Echo shows relatively small area of apical akinesis; suspect EF closer to 40% rather than the reported 30-35%. Recommend beta daphney and PACO-I therapy, aspirin. OK to discharge from my standpoint. Patient desires stress test for preop clearance for hernia surgery , will order Lexiscan nuclear. (2) Hypertension Code(s): I10 - Essential (primary) hypertension Status: Chronic Plan: Mildly increased BP's. Recommend increase beta daphney, PACO-I dosing. - Plan Code Status: full code Discussed Condition With: patient (1) Coronary artery disease Qualifiers: Coronary Disease-Associated Artery/Lesion type: [place] artery [place] vs. transplanted heart: [place] heart Associated angina: without angina Qualified Code(s): I25.10 - Atherosclerotic heart disease of [place] coronary artery without angina pectoris (2) Hypertension Qualifiers: Hypertension type: essential hypertension Qualified Code(s): I10 - Essential (primary) hypertension
[2018-08-23] MEDS ORDERED: Metoprolol Tartrate 25 MG Tablet PO SCH (08:31)
[2018-08-23] MEDS ORDERED: Lisinopril 10 MG Tablet PO SCH ×2 (09:00→21:00)
[2018-08-23] MEDS ORDERED: Regadenoson Inj 0.4 MG/5 ML Syringe IV.PUSH ONE (09:55)
--- NOTE | 2018-08-23 11:13 | NM ---
EXAM DATE: 08/23/2018 11:08 AM EST AGE/SEX: 52 years / Male INDICATIONS:Angina. Myocardial infarction Chest pain. CLINICAL DATA: This is the patient's initial encounter. Patient reports that signs and symptoms have been present for 1 day and indicates a pain score of 7/10. MEDICAL/SURGICAL HISTORY: Chronic obstructive pulmonary disease. Hypertension. Coronary artery stent. Gastric surgery. COMPARISON: No prior exams available for comparison. DOSE: 8.5 mCi Tc 99m Myoview at rest 25.4 mCi [id number] at stress 0.4 mg Lexiscan STRESS SYMPTOMS: Dyspnea. EJECTION FRACTION: 27 % TECHNIQUE: The patient underwent pharmacologic stress with infusion of prescribed dose. Continuous ECG tracing was monitored during stress. Gated SPECT imaging was performed after stress and conventi onal SPECT imaging was performed at rest. The examination was performed on a SPECT/CT scanner, both attenuation and non-corrected datasets were reviewed. FINDINGS: Distribution: The maximum perfused segment at stress is in the posterior basal wall. Perfusion Study: There is severely diminished apical perfusion and mildly to moderately diminished perfusion involving the entirety of the remaining anterior wall. No definite redistribution Gated Study: Apical akinesis. Severe LV chamber dilatation and LV dysfunction. The ejection fractio n is calculated at 27%. RISK CATEGORY: High (>3% Annual Morality Rate) CONCLUSION: No reversible perfusion abnormalities Electronically signed by: Jm Hernández MD 08/23/2018 11:12 AM EST
[2018-08-23] MEDS ORDERED: amLODIPine 5 MG Tablet PO ONE (13:08)
--- NOTE | 2018-08-23 13:11 | P.PN ---
Subjective Interval history: This is a pleasant 52 y/o Male admitted with acute Pancreatitis, Chest pain, software engineering specialist following on [facility] protocol for Alcohol Withdrawal. 08/20: Stable in his bedroom, to advance diet as tolerated his Lipase has improved, and no signs of Withdrawal. 08/21: Seen in his bedroom, stable, no sings of withdrawal at this time, may discharge later today. if okay with Cardiology. 08/22: Stable in his bedroom, no nausea, asking for Stress test, asked for software engineering specialist for clearance for discharge. 08/23: Discussed with nurse Miss Barney patient stable, seen by software engineering specialist asked for Stress test, the patient asked for this test due to probable surgical procedure and is needed for Cardiology clearance. no nausea, vomit or diarrhea. Physical Exam Vital signs: Vital Signs 08/22/18 15:11 08/22/18 16:00 08/22/18 20:00 Temperature 98.4 F 98.3 F Pulse Rate 74 79 79 Respiratory Rate 14 20 Blood Pressure 148/92 H 154/103 H 165/99 H Pulse Oximetry 97 100 97 08/23/18 00:00 08/23/18 00:09 08/23/18 04:00 Temperature 98 F 97.9 F Pulse Rate 80 74 77 Respiratory Rate 18 18 Blood Pressure 152/98 H 159/94 H Pulse Oximetry 96 96 08/23/18 08:00 Temperature 98.5 F Pulse Rate 72 Respiratory Rate 18 Blood Pressure 150/98 H Pulse Oximetry 97 Intake & Output 08/22/18 08/23/18 08/23/18 18:59 06:59 18:59 Intake Total 1060 / 1060 480 / 480 Balance 1060 / 1060 480 / 480 Intake: IV 100 / 100 Rocephin Inj 1,000 MG In NS Inj 100 / 100 100 ML @ 200 mls/hr IV.SIG Q24H DONNY Rx#:[id number] Oral 960 / 960 480 / 480 Other: # Voids 3 3 Date of Last Bowel Movement 08/22/18 08/22/18 Narrative: General: no acute distress no signs of withdrawal. Cardiovascular S1-S2 audible, tachycardic, no active chest pain. Respiratory clear to auscultation bilaterally Abdomen soft, nontender, normal bowel sounds Extremities: No clubbing cyanosis or edema. Neuro: No signs of withdrawal. - Urinary Catheter Management Condom Cath placed during this visit: no Results - Labs CBC & Chem 7: 08/20/18 06:50 08/23/18 04:40 Laboratory Results - last 24 hr 08/22/18 08/22/18 08/23/18 16:48 19:20 00:46 Sodium Potassium Chloride Carbon Dioxide Anion Gap BUN Creatinine Estimated GFR POC Glucose 172 H 183 H 201 H Random Glucose Calcium 08/23/18 08/23/18 08/23/18 02:47 04:40 07:38 Sodium 135 L Potassium 3.8 Chloride 99 Carbon Dioxide 24.8 Anion Gap 11 BUN 8 Creatinine 0.49 L Estimated GFR Greater than 89 POC Glucose 177 H 163 H Random Glucose 147 H Calcium 8.7 08/23/18 11:08 Sodium Potassium Chloride Carbon Dioxide Anion Gap BUN Creatinine Estimated GFR POC Glucose 238 H Random Glucose Calcium Microbiology 08/18/18 12:00 Blood - Peripheral Aerobic Blood Culture - Final No growth in 5 days 08/18/18 12:00 Blood - Peripheral Anaerobic Blood Culture - Final No growth in 5 days 08/18/18 11:55 Blood - Peripheral Aerobic Blood Culture - Final No growth in 5 days 08/18/18 11:55 Blood - Peripheral Anaerobic Blood Culture - Final No growth in 5 days - Imaging Impressions Myocardial Perfusion Scan Nuc Med 08/23/18 00:00 CONCLUSION: No reversible perfusion abnormalities - Procedures None Assessment and Plan - Plan This patient is a 52-year-old male with a diagnosis of hypertension, diabetes mellitus, coronary artery disease status post 2 stents in the past, COPD, and alcohol abuse. The patient presented to our emergency room with complaints of abdominal pain. CT scan of the abdomen and pelvis showed findings consistent with pancreatitis. The patient's lipase was significantly elevated. His EKG was concerning for an ST segment elevation [place] in the anterolateral leads and a slight elevation in his serum troponins. The patient was subsequently admitted to the intensive care unit. 1. Acute pancreatitis Improved. Lipase 289 2. Alcohol withdrawals no signs of withdrawal. Continue CIWA protocol. continue IV fluids. CT scan of the abdomen and pelvis shows findings consistent with pancreatitis, no abscess on imaging. regular diet. 3. Elevated troponin seen by workers compensation claims specialist do not think is ACS. he patient states he wants an Stress test as Pre op asked for stress test awaiting then final by Cardiology after Stress test performed. 4. Coronary artery disease The patient presents with abdominal pain. EKG was concerning for ST segment elevation NJ in the anterolateral leads. Cardiology evaluated the patient and believes the patient's elevation in troponin and EKG findings are from the patient's tachycardia. continue aspirin, statin, beta-daphney, PACO inhibitor continue Beta blockers and PACO inhibitor. 5. Hypertension uncontrolled increased Amlodipine to 10 mg daily. continue Beta blockers and PACO inhibitors. 6. Diabetes mellitus better control continue sliding scale. 7. Electrolyte derangement replaced 8. Leukocytosis no clear source of infection will continue present care and follow if okay in am will follow off antibiotics blood culture negative. Corrected calcium is 8.1 Heparin for DVT prophylaxis. Code Status: Full code. Discussed Condition With: Patient and Nurse Miss Barney Discharge Planning: Expected later today or in am tomorrow.
[2018-08-23 13:40] VITALS: BP 132/80; TEMP 97.9; O2SAT 96
[2018-08-23 13:58] VITALS: PULSE 70
--- NOTE | 2018-08-23 15:05 | P.DS ---
Date of admission: 08/17/18 16:42 Primary care physician: UNKNOWN Attending physician on discharge: Iftikhar Montgomery Anticipated date of discharge: 08/23/18 Brief History from admission: This is a pleasant 52 y/o Male who came to the emergency department for evaluation of left upper quadrant epigastric abdominal pain which started about 11 AM this morning. Patient has a history of cigarette smoking, prediabetes, hypertension. He states he had a heart attack sometime ago. He also has had recurrent admissions to the hospital for alcohol induced pancreatitis. His last admission was the end of June. He denies any chest pain denies any shortness of breath mild nausea no vomiting. also he has Marijuana dependence. He states he was drinking alcohol until yesterday morning. DS: Diagnosis - Discharge Diagnosis (1) Acute pancreatitis Status: Acute (2) Intractable nausea and vomiting Status: Acute (3) Hypertension Status: Chronic (4) Elevated troponin level Status: Acute DS: Summary Hospital Course: This is a pleasant 52 y/o Male admitted with acute Pancreatitis, Chest pain, case manager specialist following on CIWA protocol for Alcohol Withdrawal. 08/20: Stable in his bedroom, to advance diet as tolerated his Lipase has improved, and no signs of Withdrawal. 08/21: Seen in his bedroom, stable, no sings of withdrawal at this time, may discharge later today. if okay with Cardiology. 08/22: Stable in his bedroom, no nausea, asking for Stress test, asked for case manager specialist for clearance for discharge. 08/23: Discussed with nurse Miss Barney patient stable, seen by case manager specialist asked for Stress test, the patient asked for this test due to probable surgical procedure and is needed for Cardiology clearance. no nausea, vomit or diarrhea. Assessment and Plan - Plan This patient is a 52-year-old male with a diagnosis of hypertension, diabetes mellitus, coronary artery disease status post 2 stents in the past, COPD, and alcohol abuse. The patient presented to our emergency room with complaints of abdominal pain. CT scan of the abdomen and pelvis showed findings consistent with pancreatitis. The patient's lipase was significantly elevated. His EKG was concerning for an ST segment elevation MD in the anterolateral leads and a slight elevation in his serum troponins. The patient was subsequently admitted to the intensive care unit. 1. Acute pancreatitis Improved. Lipase 289 2. Alcohol withdrawals no signs of withdrawal. Continue CIWA protocol. continue IV fluids. CT scan of the abdomen and pelvis shows findings consistent with pancreatitis, no abscess on imaging. regular diet. 3. Elevated troponin seen by command and control specialist do not think is ACS. he patient states he wants an Stress test as Pre op asked for stress test awaiting then final by Cardiology after Stress test performed. 4. Coronary artery disease The patient presents with abdominal pain. EKG was concerning for ST segment elevation MD in the anterolateral leads. Cardiology evaluated the patient and believes the patient's elevation in troponin and EKG findings are from the patient's tachycardia. continue aspirin, statin, beta-daphney, PACO inhibitor continue Beta blockers and PACO inhibitor. EF on Stress test was 27% will need to be followed by Cardiology as outpatient, okay to discharge from case manager specialist standpoint. 5. Hypertension uncontrolled increased Amlodipine to 10 mg daily. continue Beta blockers and PACO inhibitors. 6. Diabetes mellitus better control continue sliding scale. 7. Electrolyte derangement replaced 8. Leukocytosis no clear source of infection will continue present care and follow if okay in am will follow off antibiotics blood culture negative. 9. Poor Medical compliance. Corrected calcium is 8.1 Heparin for DVT prophylaxis. Code Status: Full code. Discussed Condition With: Patient and Nurse Miss Barney Discharge Planning: Expected later today or in am tomorrow. - Time Spent with Patient Total time spent providing and/or coordinating discharge services: Greater than 30 minutes Exam Vital signs: Vital Signs 08/22/18 15:11 08/22/18 16:00 08/22/18 20:00 Temperature 98.4 F 98.3 F Pulse Rate 74 79 79 Respiratory Rate 14 20 Blood Pressure 148/92 H 154/103 H 165/99 H Pulse Oximetry 97 100 97 08/23/18 00:00 08/23/18 00:09 08/23/18 04:00 Temperature 98 F 97.9 F Pulse Rate 80 74 77 Respiratory Rate 18 18 Blood Pressure 152/98 H 159/94 H Pulse Oximetry 96 96 08/23/18 08:00 08/23/18 12:00 Temperature 98.5 F 97.9 F Pulse Rate 72 70 Respiratory Rate 18 18 Blood Pressure 150/98 H 132/80 Pulse Oximetry 97 96 Intake & Output 08/22/18 08/23/18 08/23/18 18:59 06:59 18:59 Intake Total 1060 / 1060 480 / 480 100 / 100 Balance 1060 / 1060 480 / 480 100 / 100 Intake: IV 100 / 100 100 / 100 Rocephin Inj 1,000 MG In NS Inj 100 / 100 100 / 100 100 ML @ 200 mls/hr IV.SIG Q24H DONNY Rx#:[id number] Oral 960 / 960 480 / 480 Other: # Voids 3 3 Date of Last Bowel Movement 08/22/18 08/22/18 Narrative: General: no acute distress no signs of withdrawal. Cardiovascular S1-S2 audible, tachycardic, no active chest pain. Respiratory clear to auscultation bilaterally Abdomen soft, nontender, normal bowel sounds Extremities: No clubbing cyanosis or edema. Neuro: No signs of withdrawal. Results Procedures completed during hospitalization: Stress test Labs on day of discharge: Labs from last 24 hours 08/23/18 08/23/18 08/23/18 11:08 07:38 04:40 Sodium 135 L Potassium 3.8 Chloride 99 Carbon Dioxide 24.8 Anion Gap 11 BUN 8 Creatinine 0.49 L Estimated GFR Greater than 89 POC Glucose 238 H 163 H Random Glucose 147 H Calcium 8.7 08/23/18 08/23/18 08/22/18 02:47 00:46 19:20 Sodium Potassium Chloride Carbon Dioxide Anion Gap BUN Creatinine Estimated GFR POC Glucose 177 H 201 H 183 H Random Glucose Calcium 08/22/18 16:48 Sodium Potassium Chloride Carbon Dioxide Anion Gap BUN Creatinine Estimated GFR POC Glucose 172 H Random Glucose Calcium - Impressions ITS Impressions Chest X-Ray 08/17/18 12:25 CONCLUSION: No acute cardiopulmonary disease. Abdomen/Pelvis CT 08/17/18 12:39 CONCLUSION: 1. Pancreatic and peripancreatic inflammation most characteristic of acute pancreatitis. 2. Severe hepatic steatosis. 3. No evidence of intraperitoneal abscess formation or pseudocyst. 4. Ventral hernias containing intestinal loops. 5. No evidence of perforation or obstruction. 6. Stable left adrenal nodule and left renal cysts. 7. Status post splenectomy. Myocardial Perfusion Scan Nuc Med 08/23/18 00:00 CONCLUSION: No reversible perfusion abnormalities Discharge Plan - Discharge Disposition Patient Disposition: 01 Discharge Home - Discharge Condition Condition: Good - Discharge Order Discharge Orders: Discharge Order (Routine); Ordered 08/23/18 Ordered By: Iftikhar Montgomery Cardiology Clear for Discharge (Routine); Ordered 08/23/18 Ordered By: Mack Matamoros - Discharge Details Anticipated Discharge Date: 08/23/18 Discharge Comment: Follow with PCP in three days - Physicians Team Primary Care Provider: UNKNOWN, Attending Provider: Iftikhar Montgomery Other Providers: Mack Matamoros MD
[2018-08-23] MEDS ORDERED: Metoprolol Tartrate 50 MG Tablet PO SCH (21:00)
[2018-08-24] MEDS ORDERED: amLODIPine 5 MG Tablet PO SCH (09:00)
== END 2018-08-23 15:50 | disposition home or self-care (01) ==
LOC: NEPE 12:14 → NEDA 12:29 → N04 17:11 → HIMC 08-18 01:10 → N04 08-19 11:47
PROVIDERS: ADMIT Internal Medicine; ATTEND Internal Medicine

== ENCOUNTER 2018-09-06 14:44 | Inpatient (IN) ==
[2018-09-06] MEDS ORDERED: Morphine Inj 4 MG/ML Vial IV.PUSH ONE ×2 (16:25→18:25)
[2018-09-06] MEDS ORDERED: Sod Chloride 0.9% Inj 1,000 ML IV.SIG SCH ×2 (16:30→18:30)
--- NOTE | 2018-09-06 16:31 | ED ---
HPI General Chief complaint: Abdominal Pain Stated complaint: abdominal pain Time Seen by Provider: 09/06/18 16:05 Source: patient Mode of arrival: ambulatory Limitations: no limitations History of Present Illness HPI narrative: 52yo M with PMH of HTN, pancreatitis, alcohol abuse, umbilical hernia here with c/o nausea, vomiting and abdominal pain for 3 days. Denies any fever, chest pain, sob, dysuria, hematuria, focal weakness or numbness. Last alcohol use was this morning. Pt was last admitted 08/23/18 for acute pancreatitis and chest pain. Related Data Home Medications Medication Instructions Recorded Confirmed ondansetron [Zofran ODT] 4 mg PO QID PRN 07/21/18 08/17/18 Previous Rx's Medication Instructions Recorded amlodipine [Norvasc] 10 mg PO DAILY #60 tab 08/23/18 aspirin 81 mg PO DAILY #30 tab 08/23/18 azithromycin 500 mg PO DAILY #5 tab 08/23/18 guaifenesin [Mucinex] 600 mg PO BID #60 tab 08/23/18 lisinopril 10 mg PO BID #60 tab 08/23/18 metoprolol tartrate 50 mg PO BID #60 tab 08/23/18 multivitamin with folic acid 1 tab PO DAILY #30 tab 08/23/18 [Thera] pantoprazole [Protonix] 40 mg PO DAILY #30 tab 08/23/18 thiamine HCl (vitamin B1) 100 mg PO DAILY #30 tab 08/23/18 Allergies Allergy/AdvReac Type Severity Reaction Status Date / Time No Known Allergies Allergy Verified 09/06/18 17:35 Review of Systems ROS: all other systems reviewed are negative FOR[facility] Social History Social History Substance History: No History of Abuse and Active Abuse Second Hand Smoke Exposure: Yes Smoking Status: Current every day smoker Tobacco Type: Cigarettes Packs Per Day: 1 Cigarettes Per Day: 20.0 How Often Do You Have a Drink Containing Alcohol: 4 or more times a week Recent Travel in [facility] within the Last 8 Weeks: No Recent Out of Country Travel within the Last 8 Weeks: No Substance Abuse Detail Marijuana: Substance Use Status: Active Route Used Substance Abuse: By Mouth Immunization History Tetanus Immunization: Unsure Exam Narrative Exam Narrative: GENERAL: 52yo M in moderate distress, dry heaving at this time SKIN: Focused skin assessment warm/dry. HEAD: Atraumatic. Normocephalic. EYES: Pupils equal and round. No scleral icterus. No injection or drainage. ENT: No nasal bleeding or discharge. Mucous membranes pink and moist. NECK: Trachea midline. No JVD. CARDIOVASCULAR: Regular rate and rhythm. No murmur appreciated. RESPIRATORY: No accessory muscle use. Clear to auscultation. Breath sounds equal bilaterally. GASTROINTESTINAL: Abdomen soft, +TTP epigastric region. Multiple umbilical hernias that are reducible. No rebound tenderness or guarding. MUSCULOSKELETAL: No obvious deformities. No clubbing. No cyanosis. No edema. NEUROLOGICAL: Awake and alert. No obvious cranial nerve deficits. Motor grossly within normal limits. Normal speech. PSYCHIATRIC: Appropriate mood and affect; insight and judgment normal. Course Initial Documented Vital Signs Temperature 98.0 F 09/06/18 15:48 Pulse Rate 124 H 09/06/18 15:48 Respiratory Rate 24 09/06/18 15:48 Blood Pressure 157/102 H 09/06/18 15:48 Pulse Oximetry 97 09/06/18 15:48 Last Documented Vital Signs Temperature 98.7 F 09/07/18 04:00 Pulse Rate 110 H 09/07/18 06:00 Respiratory Rate 22 09/07/18 06:00 Blood Pressure 162/92 H 09/07/18 06:00 Pulse Oximetry 96 09/07/18 06:00 Medical Decision Making MDM Narrative Medical decision making narrative: 52yo M with vomiting and abdominal pain for 3 days. Pt has frequent admissions for pancreatitis. He has epigastric pain and is actively vomiting. Will obtain labs, CT a/p, UA, EKG. Pt will need a treatment bed and will give him zofran and morphine. EKG is concerning so discussed with gis professor Dr. Matamoros in person who saw the patient last admission and he remembers this patient. Said it is not acute ID. However, will need cardiac enzymes. Troponin added. Pt denies any chest pain or sob but given epigastric pain and cardiac risk factors, EKG was obtained. Pt to be admitted. Medical decision making narrative: During the course of the patients emergency department visit, the patients history, examination, and differential diagnosis were reviewed with the patient. The patient was placed on a credit verification clerk with oximetry and frequent blood pressure monitoring. The patient was initially provided IV NS bolus, 4mg morphine as well as zofran x 2 doses. He was still vomiting so did order another 4 mg of morphine as well as Reglan IV. He does admit to drinking daily and states he has had abdominal pain all day today. Also did do 20 mEq of potassium IV as patient did vomit several more times once he got here and I suspect that potassium may be lower than labs are showing. 10 units of insulin IV administered. ABG ordered, Dr. Kevin WALKER called for admission. EKG is showing a rate of 122 bpm CO interval is 140 QRS duration is 93. Mild elevation in V4 V5 EKG was read and signed off by Dr. Casanova.. The patients laboratory studies were reviewed and remarkable for mild elevation in MCV and MCH, platelet count 321, mild elevation in neutrophils at 73.3, sodium at 130, potassium 3.3, chloride 92, CO2 of 14.3 anion gap is 24 BUN is 6 creatinine 1.18 GFR 64 glucose was 412. Troponin 0 0.05 total protein 8.7 albumin 3.4 lipase is 4324 serum alcohol 62 per. Radiology studies were reviewed and remarkable for Overall no significant change compared with August 17. 2. Acute pancreatitis similar in appearance to August 17. 3. Severe hepatic steatosis. 4. Bowel containing ventral hernias without evidence for obstruction. 5. Stable left adrenal nodule and small renal cysts. Previous splenectomy. ABG still pending at 1919. Spoke with Dr. Brown about patient he states that he will admit him for DKA as well as pancreatitis and intractable vomiting. Medical Screen Exam Complete: Yes Emergency Medical Condition: Yes Medical Screen Exam Complete: Yes Emergency Medical Condition: Yes Differential Diagnosis Differential Diagnosis: Acute pancreatitis vs. gastritis vs. incarcerated hernia vs. dehydration vs. alcohol withdrawal Lab Data Lab results reviewed: Yes I reviewed the patient's lab results. Result diagrams: 09/06/18 16:30 09/07/18 03:45 Lab Results 09/06/18 09/06/18 09/06/18 Range/Units 16:30 16:30 16:30 WBC 9.8 (4.0-11.0) th/mm3 RBC 4.19 L (4.50-5.90) mil/mm3 Hgb 14.6 (13.0-17.0) gm/dL Hct 42.9 (39.0-51.0) % MCV 102.4 H (80.0-100.0) fL MCH 34.8 H (27.0-34.0) pg MCHC 34.0 (32.0-36.0) % RDW 15.5 (11.6-17.2) % Plt Count 321 D (150-450) th/mm3 MPV 11.5 H (7.0-11.0) fL Neut % (Auto) 73.2 H (16.0-70.0) % Lymph % (Auto) 16.8 (9.0-44.0) % [place] % (Auto) 9.0 H (0.0-8.0) % Eos % (Auto) 0.2 (0.0-4.0) % Baso % (Auto) 0.8 (0.0-2.0) % Neut # (Auto) 7.2 (1.8-7.7) th/mm3 Lymph # (Auto) 1.6 (1.0-4.8) th/mm3 [place] # (Auto) 0.9 (0.0-0.9) th/mm3 Eos # (Auto) 0.0 (0.0-0.4) th/mm3 Baso # (Auto) 0.1 (0.0-0.2) th/mm3 WBC Differential . Differential Comment Auto diff final Puncture Site Patient Temperature O2 Saturation (90-100) % ABG pH (7.380-7.420) ABG pCO2 (38-42) mmHg ABG pO2 (61-120) mmHg ABG HCO3 (22-26) mmol/L ABG O2 Content (12.0-20.0) Vol % ABG Base Excess (-2-2) mmol/L ABG Methemoglobin (0-2) % Asim Test Hemoglobin (12.0-16.0) G/DL Carboxyhemoglobin (0-4) % Inspired O2 % Critical Value Sodium 130 L (136-145) meq/L Potassium 3.3 L (3.5-5.1) meq/L Chloride 92 L (98-107) meq/L Carbon Dioxide 14.3 L (21.0-32.0) meq/L Anion Gap 24 H (5-15) meq/L BUN 6 L (7-18) mg/dL Creatinine 1.18 (0.60-1.30) mg/dL Estimated GFR 64 L (>89) mL/min Random Glucose 412 H (74-106) mg/dL Lactic Acid (0.4-2.0) mmol/L Calcium 8.6 (8.5-10.1) mg/dL Calcium Adj for Albumin (8.5-10.1) mg/dL Phosphorus (2.5-4.9) mg/dL Magnesium (1.5-2.5) mg/dL Total Bilirubin 0.6 (0.2-1.0) mg/dL AST 219 H (15-37) U/L ALT 190 H (12-78) U/L Alkaline Phosphatase 230 H (45-117) U/L Total Creatine Kinase (39-308) U/L Troponin I 0.05 (0.02-0.05) ng/mL Total Protein 8.7 H (6.4-8.2) g/dL Albumin 3.4 (3.4-5.0) g/dL Lipase 4324 H (73-393) U/L Beta-Hydroxybutyric Acd (0.00-0.39) mmol/L Urine Color (Yellw/Straw) Urine Clarity (Clear) Urine pH (5.0-8.5) Ur Specific Dozier (1.002-1.035) Urine Protein (Neg-Trace) mg/dL Urine Glucose (UA) (Negative) mg/dL Urine Ketones (Negative) mg/dL Urine Occult Blood (Negative) Urine Nitrate (Negative) Urine Bilirubin (Negative) Urine Urobilinogen (Less than 2) mg/dL Ur Leukocyte Esterase (Negative) Urine RBC (0-3) /hpf Urine WBC (0-5) /hpf Urine Mucus (Occasional) /lpf Micro UA Comment Ur Microscopic Review Urine Culture Comments Nasal Screen MRSA (PCR) (Negative) Serum Alcohol 62 H (0-5) mg/dL 09/06/18 09/06/18 09/06/18 Range/Units 18:40 19:20 19:55 WBC (4.0-11.0) th/mm3 RBC (4.50-5.90) mil/mm3 Hgb (13.0-17.0) gm/dL Hct (39.0-51.0) % MCV (80.0-100.0) fL MCH (27.0-34.0) pg MCHC (32.0-36.0) % RDW (11.6-17.2) % Plt Count (150-450) th/mm3 MPV (7.0-11.0) fL Neut % (Auto) (16.0-70.0) % Lymph % (Auto) (9.0-44.0) % [place] % (Auto) (0.0-8.0) % Eos % (Auto) (0.0-4.0) % Baso % (Auto) (0.0-2.0) % Neut # (Auto) (1.8-7.7) th/mm3 Lymph # (Auto) (1.0-4.8) th/mm3 [place] # (Auto) (0.0-0.9) th/mm3 Eos # (Auto) (0.0-0.4) th/mm3 Baso # (Auto) (0.0-0.2) th/mm3 WBC Differential Differential Comment Puncture Site Right radial Patient Temperature 98.6 O2 Saturation 95 (90-100) % ABG pH 7.40 (7.380-7.420) ABG pCO2 27 L (38-42) mmHg ABG pO2 100 (61-120) mmHg ABG HCO3 17 L (22-26) mmol/L ABG O2 Content 18.3 (12.0-20.0) Vol % ABG Base Excess -7.1 L (-2-2) mmol/L ABG Methemoglobin 0.9 (0-2) % Asim Test Present Hemoglobin 13.6 (12.0-16.0) G/DL Carboxyhemoglobin 1.4 (0-4) % Inspired O2 21 % Critical Value No Sodium (136-145) meq/L Potassium (3.5-5.1) meq/L Chloride (98-107) meq/L Carbon Dioxide (21.0-32.0) meq/L Anion Gap (5-15) meq/L BUN (7-18) mg/dL Creatinine (0.60-1.30) mg/dL Estimated GFR (>89) mL/min Random Glucose (74-106) mg/dL Lactic Acid 9.3 H* (0.4-2.0) mmol/L Calcium (8.5-10.1) mg/dL Calcium Adj for Albumin (8.5-10.1) mg/dL Phosphorus (2.5-4.9) mg/dL Magnesium (1.5-2.5) mg/dL Total Bilirubin (0.2-1.0) mg/dL AST (15-37) U/L ALT (12-78) U/L Alkaline Phosphatase (45-117) U/L Total Creatine Kinase (39-308) U/L Troponin I (0.02-0.05) ng/mL Total Protein (6.4-8.2) g/dL Albumin (3.4-5.0) g/dL Lipase (73-393) U/L Beta-Hydroxybutyric Acd (0.00-0.39) mmol/L Urine Color Yellow (Yellw/Straw) Urine Clarity Clear (Clear) Urine pH 5.0 (5.0-8.5) Ur Specific Dozier 1.029 (1.002-1.035) Urine Protein Negative (Neg-Trace) mg/dL Urine Glucose (UA) 500 or greater (Negative) mg/dL Urine Ketones Trace H (Negative) mg/dL Urine Occult Blood Small H (Negative) Urine Nitrate Negative (Negative) Urine Bilirubin Negative (Negative) Urine Urobilinogen Less than 2 (Less than 2) mg/dL Ur Leukocyte Esterase Negative (Negative) Urine RBC 1 (0-3) /hpf Urine WBC 1 (0-5) /hpf Urine Mucus Few H (Occasional) /lpf Micro UA Comment Culture not ind Ur Microscopic Review Not Reportable Urine Culture Comments Culture not ind Nasal Screen MRSA (PCR) (Negative) Serum Alcohol (0-5) mg/dL 09/06/18 09/06/18 09/07/18 Range/Units 20:50 22:20 00:42 WBC (4.0-11.0) th/mm3 RBC (4.50-5.90) mil/mm3 Hgb (13.0-17.0) gm/dL Hct (39.0-51.0) % MCV (80.0-100.0) fL MCH (27.0-34.0) pg MCHC (32.0-36.0) % RDW (11.6-17.2) % Plt Count (150-450) th/mm3 MPV (7.0-11.0) fL Neut % (Auto) (16.0-70.0) % Lymph % (Auto) (9.0-44.0) % [place] % (Auto) (0.0-8.0) % Eos % (Auto) (0.0-4.0) % Baso % (Auto) (0.0-2.0) % Neut # (Auto) (1.8-7.7) th/mm3 Lymph # (Auto) (1.0-4.8) th/mm3 [place] # (Auto) (0.0-0.9) th/mm3 Eos # (Auto) (0.0-0.4) th/mm3 Baso # (Auto) (0.0-0.2) th/mm3 WBC Differential Differential Comment Puncture Site Patient Temperature O2 Saturation (90-100) % ABG pH (7.380-7.420) ABG pCO2 (38-42) mmHg ABG pO2 (61-120) mmHg ABG HCO3 (22-26) mmol/L ABG O2 Content (12.0-20.0) Vol % ABG Base Excess (-2-2) mmol/L ABG Methemoglobin (0-2) % Asim Test Hemoglobin (12.0-16.0) G/DL Carboxyhemoglobin (0-4) % Inspired O2 % Critical Value Sodium 133 L (136-145) meq/L Potassium 4.0 (3.5-5.1) meq/L Chloride 98 (98-107) meq/L Carbon Dioxide 18.9 L (21.0-32.0) meq/L Anion Gap 16 H (5-15) meq/L BUN 5 L (7-18) mg/dL Creatinine 1.05 (0.60-1.30) mg/dL Estimated GFR 74 L (>89) mL/min Random Glucose 194 H D (74-106) mg/dL Lactic Acid 10.4 H* (0.4-2.0) mmol/L Calcium 7.7 L D (8.5-10.1) mg/dL Calcium Adj for Albumin (8.5-10.1) mg/dL Phosphorus 1.9 L (2.5-4.9) mg/dL Magnesium 2.0 (1.5-2.5) mg/dL Total Bilirubin 0.8 (0.2-1.0) mg/dL AST 171 H (15-37) U/L ALT 164 H (12-78) U/L Alkaline Phosphatase 200 H (45-117) U/L Total Creatine Kinase 65 (39-308) U/L Troponin I (0.02-0.05) ng/mL Total Protein 7.9 D (6.4-8.2) g/dL Albumin 3.2 L (3.4-5.0) g/dL Lipase (73-393) U/L Beta-Hydroxybutyric Acd 0.15 (0.00-0.39) mmol/L Urine Color (Yellw/Straw) Urine Clarity (Clear) Urine pH (5.0-8.5) Ur Specific [place] (1.002-1.035) Urine Protein (Neg-Trace) mg/dL Urine Glucose (UA) (Negative) mg/dL Urine Ketones (Negative) mg/dL Urine Occult Blood (Negative) Urine Nitrate (Negative) Urine Bilirubin (Negative) Urine Urobilinogen (Less than 2) mg/dL Ur Leukocyte Esterase (Negative) Urine RBC (0-3) /hpf Urine WBC (0-5) /hpf Urine Mucus (Occasional) /lpf Micro UA Comment Ur Microscopic Review Urine Culture Comments Nasal Screen MRSA (PCR) Not detected (Negative) Serum Alcohol (0-5) mg/dL 09/07/18 09/07/18 Range/Units 03:45 03:45 WBC (4.0-11.0) th/mm3 RBC (4.50-5.90) mil/mm3 Hgb (13.0-17.0) gm/dL Hct (39.0-51.0) % MCV (80.0-100.0) fL MCH (27.0-34.0) pg MCHC (32.0-36.0) % RDW (11.6-17.2) % Plt Count (150-450) th/mm3 MPV (7.0-11.0) fL Neut % (Auto) (16.0-70.0) % Lymph % (Auto) (9.0-44.0) % [place] % (Auto) (0.0-8.0) % Eos % (Auto) (0.0-4.0) % Baso % (Auto) (0.0-2.0) % Neut # (Auto) (1.8-7.7) th/mm3 Lymph # (Auto) (1.0-4.8) th/mm3 [place] # (Auto) (0.0-0.9) th/mm3 Eos # (Auto) (0.0-0.4) th/mm3 Baso # (Auto) (0.0-0.2) th/mm3 WBC Differential Differential Comment Puncture Site Patient Temperature O2 Saturation (90-100) % ABG pH (7.380-7.420) ABG pCO2 (38-42) mmHg ABG pO2 (61-120) mmHg ABG HCO3 (22-26) mmol/L ABG O2 Content (12.0-20.0) Vol % ABG Base Excess (-2-2) mmol/L ABG Methemoglobin (0-2) % Asim Test Hemoglobin (12.0-16.0) G/DL Carboxyhemoglobin (0-4) % Inspired O2 % Critical Value Sodium 134 L (136-145) meq/L Potassium 4.2 (3.5-5.1) meq/L Chloride 98 (98-107) meq/L Carbon Dioxide 19.6 L (21.0-32.0) meq/L Anion Gap 16 H (5-15) meq/L BUN 4 L (7-18) mg/dL Creatinine 0.90 (0.60-1.30) mg/dL Estimated GFR 88 L (>89) mL/min Random Glucose 252 H (74-106) mg/dL Lactic Acid 8.1 H* (0.4-2.0) mmol/L Calcium 7.2 L* (8.5-10.1) mg/dL Calcium Adj for Albumin 8.0 L (8.5-10.1) mg/dL Phosphorus (2.5-4.9) mg/dL Magnesium (1.5-2.5) mg/dL Total Bilirubin (0.2-1.0) mg/dL AST (15-37) U/L ALT (12-78) U/L Alkaline Phosphatase (45-117) U/L Total Creatine Kinase (39-308) U/L Troponin I (0.02-0.05) ng/mL Total Protein (6.4-8.2) g/dL Albumin 3.0 L (3.4-5.0) g/dL Lipase (73-393) U/L Beta-Hydroxybutyric Acd (0.00-0.39) mmol/L Urine Color (Yellw/Straw) Urine Clarity (Clear) Urine pH (5.0-8.5) Ur Specific [place]zier (1.002-1.035) Urine Protein (Neg-Trace) mg/dL Urine Glucose (UA) (Negative) mg/dL Urine Ketones (Negative) mg/dL Urine Occult Blood (Negative) Urine Nitrate (Negative) Urine Bilirubin (Negative) Urine Urobilinogen (Less than 2) mg/dL Ur Leukocyte Esterase (Negative) Urine RBC (0-3) /hpf Urine WBC (0-5) /hpf Urine Mucus (Occasional) /lpf Micro UA Comment Ur Microscopic Review Urine Culture Comments Nasal Screen MRSA (PCR) (Negative) Serum Alcohol (0-5) mg/dL Imaging Data Radiologist's impression: Abdomen/Pelvis CT 09/06/18 16:19 CONCLUSION: 1. Overall no significant change compared with August 17. 2. Acute pancreatitis similar in appearance to August 17. 3. Severe hepatic steatosis. 4. Bowel containing ventral hernias without evidence for obstruction. 5. Stable left adrenal nodule and small renal cysts. Previous splenectomy. ECG Data EKG Prior to Arrival: No Attestation: I personally reviewed and interpreted this ECG as follows: Prior ECG tracings: available for review Interpretation: Sinus tachycardia at 122bpm. ST elevation V3-V5. ST depression II, III, aVF. Discharge Plan Discharge Disposition Patient Disposition: ED Admit(ED Internal Use Only) Discharge Condition Condition: Good Discharge Order Discharge Orders: ED Use Only Admit Order (Routine); Ordered 09/06/18 Ordered By: Sarah Lynn Discharge Details Diagnosis: Cyclical vomiting, intractable, Acute pancreatitis, Diabetic ketoacidosis, Acute alcoholism Physicians Team ED Provider: Katie Casanova ED Midlevel Provider: Sarah Lynn Primary Care Provider: [facility]Physician 's Attending Provider: Guerrero Pendleton Status ED Status: Left Department Discharge Information Discharge Date/Time: 09/06/18 22:28
[2018-09-06 16:52] LABS: Baso # (Auto) 0.1 th/mm3 (0.0-0.2); Baso % (Auto) 0.8 % (0.0-2.0); Eos % (Auto) 0.2 % (0.0-4.0); Hematocrit 42.9 % (39.0-51.0); Hemoglobin 14.6 gm/dL (13.0-17.0); Lymph # (Auto) 1.6 th/mm3 (1.0-4.8); Lymph % (Auto) 16.8 % (9.0-44.0); Mean Corpuscular Hemoglobin 34.8 pg (27.0-34.0); Mean Corpuscular Volume 102.4 fL (80.0-100.0); Mean Platelet Volume 11.5 fL (7.0-11.0); Mono # (Auto) 0.9 th/mm3 (0.0-0.9); Neut # (Auto) 7.2 th/mm3 (1.8-7.7); Neut % (Auto) 73.2 % (16.0-70.0); Platelet Count 321 th/mm3 (150-450); Red Blood Count 4.19 mil/mm3 (4.50-5.90); Red Cell Distribution Width 15.5 % (11.6-17.2); White Blood Count 9.8 th/mm3 (4.0-11.0)
[2018-09-06 17:25] LABS: Alanine Aminotransferase 190 U/L (12-78); Albumin 3.4 g/dL (3.4-5.0); Alkaline Phosphatase 230 U/L (45-117); Anion Gap 24 meq/L (5-15); Aspartate Aminotransferase 219 U/L (15-37); Blood Urea Nitrogen 6 mg/dL (7-18); Calcium 8.6 mg/dL (8.5-10.1); Carbon Dioxide 14.3 meq/L (21.0-32.0); Chloride 92 meq/L (98-107); Glomerular Filtration Rate 64 mL/min (>89); Glucose,Random 412 mg/dL (74-106); Potassium 3.3 meq/L (3.5-5.1); Sodium 130 meq/L (136-145); Total Protein 8.7 g/dL (6.4-8.2)
[2018-09-06 17:27] LABS: Alcohol 62 mg/dL (0-5)
[2018-09-06 17:53] LABS: Lipase 4324 U/L (73-393)
--- NOTE | 2018-09-06 18:24 | CT ---
EXAM DATE: 09/06/2018 6:19 PM EST AGE/SEX: 52 years / Male INDICATIONS: Abdomen pain with vomiting. CLINICAL DATA: This is the patient's initial encounter. Patient reports that signs and symptoms have been present for 1 day and indicates a pain score of 10/10. MEDICAL/SURGICAL HISTORY: Cardiovascular disease. Hypertension. Pancreatitis. COPD Alcohol abuse Fusion, lumbar. Multiple hernia's ORAL CONTRAST: No oral contrast ingested. RADIATION DOSE: 15.51 CTDI (mGy) COMPARISON: [facility] [place], CT ABDOMEN & PELVIS W CONTRAST, 08/17/2018. . TECHNIQUE: Multiple contiguous axial images were obtained through the abdomen and pelvis following b olus infusion of 95 ml Omnipaque 350 (iohexol) nonionic water-soluble contrast as a single exam dos e. No oral contrast ingested. Using automated exposure control and adjustment of the mA and/or kV ac cording to patient size, radiation dose was kept as low as reasonably achievable to obtain optimal di agnostic quality images. DICOM format image data is available electronically for review and comparis on. FINDINGS: Comparison is August 17. Lung bases clear. Small hiatal hernia. Severe hepatic steatosis. Previous splenectomy. Stable small adrenal nodule measuring about 2 cm. Rig ht adrenal unremarkable. Kidneys and gallbladder are unremarkable. Pancreatic fat stranding characteristic of acute pancreatitis similar to August 17. 2 bowel containing ventral hernias are stable. There is no evidence for bowel obstruction. Multiple s urgical clips present in bowel. There is severe colonic diverticulosis without evidence for diverticulitis. Previous fusion at lumbos acral junction is stable. No free air or significant free fluid. CONCLUSION: 1. Overall no significant change compared with August 17. 2. Acute pancreatitis similar in appearance to August 17. 3. Severe hepatic steatosis. 4. Bowel containing ventral hernias without evidence for obstruction. 5. Stable left adrenal nodule and small renal cysts. Previous splenectomy. Electronically signed by: Khris Hamilton MD 09/06/2018 6:23 PM EST
[2018-09-06] MEDS ORDERED: Potassium Chlor 20 mEq Premix 20 MEQ/100 ML PIGGYBACK IV.SIG ONE (18:53)
[2018-09-06 19:23] LABS: Bilirubin,Urine Negative (Negative); Clarity,Urine Clear (Clear); Color,Urine Yellow (Yellw/Straw); Glucose,Urine (UA) 500 or Greater mg/dL (Negative); Leukocyte Esterase,Urine Negative (Negative); Mucus,Urine Few /lpf (Occasional); Nitrite,Urine Negative (Negative); Specific Gravity,Urine 1.029 (1.002-1.035)
[2018-09-06 19:30] LABS: ABG Base Excess -7.1 mmol/L (-2-2); ABG PCO2 27 mmHg (38-42); ABG PO2 100 mmHg (61-120)
[2018-09-06] MEDS ORDERED: Bisacodyl 10 MG Supp RECTAL PRN (19:38)
[2018-09-06] MEDS ORDERED: Acetaminophen 325 MG Tablet PO PRN (19:38)
[2018-09-06] MEDS ORDERED: HYDROmorphone PF Inj 2 MG/ML Vial IV.PUSH ONE (19:38)
[2018-09-06] MEDS ORDERED: Potassium Chlor 20 mEq Premix 20 MEQ/100 ML PIGGYBACK IV.SIG PRN ×6 (19:44)
[2018-09-06] MEDS ORDERED: Potassium Chlor 40 mEq Premix 40 MEQ/100 ML PIGGYBACK IV.SIG PRN ×2 (19:44)
[2018-09-06] MEDS ORDERED: Sodium Phosphate Inj 15 MMOL in Sodium Chlor 0.9% Inj 100 ML IV.SIG PRN (19:44)
[2018-09-06] MEDS ORDERED: Dextrose 5%/NaCl 0.9% Inj 1,000 ML IV.CONT SCH (19:45)
[2018-09-06] MEDS ORDERED: Sod Chloride 0.9% Inj 1,000 ML IV.CONT SCH (19:45)
[2018-09-06] MEDS ORDERED: LORazepam 1 MG Tablet PO PRN (19:48)
[2018-09-06] MEDS ORDERED: Thiamine Inj 500 MG in Sodium Chlor 0.9% Inj 250 ML IV.SIG ONE (21:00)
[2018-09-06] MEDS ORDERED: Insulin Regular (For Infusion) 100 UNIT in Sodium Chlor 0.9% Inj 99 ML IV.CONT PRN (21:00)
[2018-09-06] MEDS ORDERED: Dextrose 50% in Water 50 ML Vial IV.PUSH PRN (21:25)
[2018-09-06] MEDS ORDERED: Naloxone Inj 0.4 MG/ML Vial IV.PUSH PRN (21:31)
[2018-09-06] MEDS ORDERED: Sod Chloride 0.9% Inj 2,000 ML IV.SIG ONE (21:37)
[2018-09-06 21:39] LABS: Alanine Aminotransferase 164 U/L (12-78); Albumin 3.2 g/dL (3.4-5.0); Alkaline Phosphatase 200 U/L (45-117); Anion Gap 16 meq/L (5-15); Aspartate Aminotransferase 171 U/L (15-37); Beta Hydroxybutyric Acid 0.15 mmol/L (0.00-0.39); Blood Urea Nitrogen 5 mg/dL (7-18); Calcium 7.7 mg/dL (8.5-10.1); Carbon Dioxide 18.9 meq/L (21.0-32.0); Chloride 98 meq/L (98-107); Glomerular Filtration Rate 74 mL/min (>89); Glucose,Random 194 mg/dL (74-106); Phosphorus 1.9 mg/dL (2.5-4.9); Sodium 133 meq/L (136-145); Total Protein 7.9 g/dL (6.4-8.2)
[2018-09-06 21:43] LABS: Creatine Kinase 65 U/L (39-308)
--- NOTE | 2018-09-06 21:43 | P.HPIM ---
History of Present Illness Primary Care Physician: [facility] History of Present Illness: 52-year-old male with a history of alcoholic pancreatitis, alcohol abuse, chronic umbilical hernia who presents with 1 day history of constant dull epigastric pain, nausea with clear vomiting. Denies any chest pain, shortness of breath, lightheadedness or dizziness. Patient's glucose was found to be in the 400s, however after receiving insulin in the ER, he is experiencing bilateral tremor which he believes is his alcohol withdrawal. Inpatient Certification: I certify that the inpatient services were ordered in accordance with Medicare regulations governing the order. This includes certification that hospital inpatient services are reasonable and necessary and in the case of services not specified as inpatient-only under 42 CFR 419.22(n), that they are appropriately provided as inpatient services in accordance to with the 2-midnight benchmark under 43 CFR 412.3(e) Estimated Total Length of Stay (Days): 3 Plans for Post Hospital Care: Not yet determined Review of Systems All other systems reviewed negative except as stated in HPI PMFSH - History History Provided By: Patient - Medical History Medical History: Medical History (Last Reviewed 09/06/18 @ 21:29 by Sabino Brown MD) ETOH abuse Pancreatitis COPD (chronic obstructive pulmonary disease) Hypertension Myocardial infarction - Surgical History Surgical History: Surgical History (Last Reviewed 09/06/18 @ 21:29 by Sabino Brown MD) History of herniorrhaphy S/P gastric surgery - Family History Family History: Family History (Last Reviewed 09/06/18 @ 21:29 by Sabino Brown MD) Father Family history of acute myocardial infarction Mother Diabetes mellitus Mother Breast cancer Mother Pancreatic cancer - Tobacco History Second Hand Smoke Exposure: Yes Tobacco Use In Past 30 Days: Yes Smoking Status: Current some day smoker Tobacco Type: Cigarettes Packs Per Day: 1 - Alcohol History How Often Do You Have a Drink Containing Alcohol: 4 or more times a week - Substance Use History Substance History: Active Abuse - Substance Use Type Marijuana Status: Active Route Used: By Mouth - Travel History Recent Travel in the [place] Within the Last 8 Weeks: No Recent Travel Out of the Country Within the Last 8 Weeks: No - Immunization History Tetanus Immunization: Unsure Medications and Allergies Active Medications: Active Medications Acetaminophen (Tylenol) 650 mg PO Q4H PRN PRN Reason: Temp > 100.4 Al Hydroxide/Mg Hydroxide (Milk Of Magnesia Liq) 30 ml PO Q12H PRN PRN Reason: Mild Constipation Bisacodyl (Dulcolax Supp) 10 mg RECTAL DAILY PRN PRN Reason: SEVERE CONSITIPATION Chlorhexidine Gluconate (Chlorhexidine 2% Cloth) 3 pack TOPICAL DAILY@0400 DONNY Stop: 09/12/18 03:59 Chlorhexidine Gluconate (Chlorhexidine 2% Cloth) 3 pack TOPICAL DAILY@0400 PRN PRN Reason: Extra cloth needed Stop: 09/12/18 03:59 Flumazenil (Romazecon Inj) 0.2 mg IV.PUSH Q1M PRN PRN Reason: OVERSEDATION Haloperidol Lactate (Haldol Inj) 1 mg IV.PUSH Q15M PRN PRN Reason: for severe agitation Thiamine HCl 500 mg/ Sodium (Chloride) 255 mls @ 62.5 mls/hr IV.SIG ONCE ONE Stop: 09/07/18 01:04 Sodium Chloride (Ns Inj) 1,000 mls @ 200 mls/hr IV.CONT .Q5H DONNY Dextrose/Sodium Chloride (D5w/Normal Saline Inj) 1,000 mls @ 200 mls/hr IV.CONT .Q5H DONNY Insulin Human Regular 100 unit (/ Sodium Chloride) 100 mls @ 8 mls/hr IV.CONT TITRATE PRN; Protocol PRN Reason: See protocol Sodium Chloride (Ns Inj) 1,000 mls @ 250 mls/hr IV.CONT .Q4H DONNY Potassium Chloride (Kcl 40 Meq Premix Inj) 40 meq in 100 mls @ 50 mls/hr IV.SIG Q2H PRN PRN Reason: for Subsequent K+ < 3.5 Potassium Chloride (Kcl 20 Meq Premix Inj) 20 meq in 100 mls @ 100 mls/hr IV.SIG Q1H PRN PRN Reason: for K+ 3.5 to 4.4 Potassium Chloride (Kcl 20 Meq Premix Inj) 20 meq in 100 mls @ 100 mls/hr IV.SIG Q1H PRN PRN Reason: for K+ 4.5 to 5 Potassium Chloride (Kcl 20 Meq Premix Inj) 20 meq in 100 mls @ 50 mls/hr IV.SIG Q2H PRN PRN Reason: for Initial K+ ONLY < 3.5 Potassium Chloride (Kcl 20 Meq Premix Inj) 20 meq in 100 mls @ 50 mls/hr IV.SIG Q2H PRN PRN Reason: for Subsequent K+ < 3.5 Potassium Chloride (Kcl 20 Meq Premix Inj) 20 meq in 100 mls @ 50 mls/hr IV.SIG Q2H PRN PRN Reason: for K+ 4.5 to 5 Sodium Phosphate 15 mmol/ (Sodium Chloride) 105 mls @ 25 mls/hr IV.SIG UNSCH PRN PRN Reason: for Phosphate Level < 1.0 Potassium Chloride (Kcl 40 Meq Premix Inj) 40 meq in 100 mls @ 100 mls/hr IV.SIG Q1H PRN PRN Reason: for Initial K+ ONLY < 3.5 Potassium Chloride (Kcl 20 Meq Premix Inj) 20 meq in 100 mls @ 50 mls/hr IV.SIG Q2H PRN PRN Reason: for K+ 3.5 to 4.4 Lactulose (Lactulose Liq) 30 ml PO DAILY PRN PRN Reason: SEVERE CONSITIPATION Lorazepam (Ativan) 2 mg PO Q2H PRN PRN Reason: for CIWA 11-14 Lorazepam (Ativan Inj) 2 mg IV.PUSH Q2H PRN PRN Reason: for CIWA 11-14 Last Admin: 09/06/18 20:45 Dose: 2 mg Lorazepam (Ativan Inj) 2 mg IV.PUSH Q1H PRN PRN Reason: for CIWA 15-20 Lorazepam (Ativan Inj) 2 mg IV.PUSH Q15M PRN PRN Reason: for CIWA > 20 Lorazepam (Ativan Inj) 1 mg IV.PUSH Q4H PRN PRN Reason: for CIWA 8-10 Lorazepam (Ativan) 1 mg PO Q4H PRN PRN Reason: for CIWA 8-10 Ondansetron HCl (Zofran Inj) 4 mg IV.PUSH Q6H PRN PRN Reason: NAUSEA OR VOMITING Sennosides (Senokot) 17.2 mg PO Q12H PRN PRN Reason: Moderate Constipation Sodium Bicarbonate (Sodium Bicarbonate 8.4% Inj) 50 meq IV.PUSH UNSCH PRN PRN Reason: for pH 6.9 to 7.0 Sodium Bicarbonate (Sodium Bicarbonate 8.4% Inj) 100 meq IV.PUSH UNSCH PRN PRN Reason: for pH less than 6.9 Sodium Chloride (Ns Flush) 2 ml IV.FLUSH BID DONNY Sodium Chloride (Ns Flush) 2 ml IV.FLUSH PRN PRN PRN Reason: FLUSH AFTER USING IV ACCESS Thiamine HCl (Vitamin B1) 500 mg PO ONCE ONE Stop: 09/06/18 21:13 Allergies Allergy/AdvReac Type Severity Reaction Status Date / Time No Known Allergies Allergy Verified 09/06/18 17:35 Home Medications Medication Instructions Recorded Confirmed Type ondansetron [Zofran ODT] 4 mg PO QID PRN 07/21/18 08/17/18 History Exam Vital signs: Vital Signs 09/06/18 15:48 09/06/18 17:36 09/06/18 18:00 Temperature 98.0 F Pulse Rate 124 H 108 H 104 H Respiratory Rate 24 20 16 Blood Pressure 157/102 H 170/98 H 167/87 H Pulse Oximetry 97 98 98 09/06/18 20:56 Temperature Pulse Rate 113 H Respiratory Rate 12 Blood Pressure 172/104 H Pulse Oximetry 96 Intake & Output 09/06/18 09/06/18 09/07/18 06:59 18:59 06:59 Intake Total 1000 / 1000 Balance 1000 / 1000 Weight 79.379 kg Intake: IV 1000 / 1000 NS Inj 1,000 ML @ 1000 mls/hr 1000 / 1000 IV.SIG BOLUS DONNY Rx#:[id number] Narrative: GENERAL: Patient sitting up in bed. Appears uncomfortable. Alert and oriented x3. Bilateral upper extremity tremors. SKIN: Warm and dry. HEAD: Atraumatic. Normocephalic. EYES: Pupils equal and round. No scleral icterus. No injection or drainage. ENT: No nasal bleeding or discharge. Mucous membranes pink and moist. NECK: Trachea midline. No JVD. CARDIOVASCULAR: Regular rate and rhythm. RESPIRATORY: No accessory muscle use. Clear to auscultation. Breath sounds equal bilaterally. GASTROINTESTINAL: Abdomen soft, non-tender, nondistended. Hepatic and splenic margins not palpable. MUSCULOSKELETAL: Extremities without clubbing, cyanosis, or edema. No obvious deformities. NEUROLOGICAL: Awake and alert. No obvious cranial nerve deficits. Motor grossly within normal limits. Five out of 5 muscle strength in the arms and legs. Normal speech. Bilateral upper extremity tremors. Patient does have moderate ataxia on finger to nose which he believes is secondary to the tremors. PSYCHIATRIC: Appropriate mood and affect; insight and judgment normal. Results - Labs CBC & Chem 7: 09/06/18 16:30 09/06/18 16:30 Labs: Short CBC 09/06/18 Range/Units 16:30 WBC 9.8 (4.0-11.0) th/mm3 Hgb 14.6 (13.0-17.0) gm/dL Hct 42.9 (39.0-51.0) % Plt Count 321 D (150-450) th/mm3 BMP 09/06/18 16:30 Sodium 130 L Potassium 3.3 L Chloride 92 L Carbon Dioxide 14.3 L BUN 6 L Creatinine 1.18 Calcium 8.6 Cardiac Enzymes 09/06/18 Range/Units 16:30 Troponin I 0.05 (0.02-0.05) ng/mL Liver Function 09/06/18 Range/Units 16:30 Total Bilirubin 0.6 (0.2-1.0) mg/dL AST 219 H (15-37) U/L ALT 190 H (12-78) U/L Alkaline Phosphatase 230 H (45-117) U/L Albumin 3.4 (3.4-5.0) g/dL Urine 09/06/18 Range/Units 18:40 Urine Color Yellow (Yellw/Straw) Urine Clarity Clear (Clear) Urine pH 5.0 (5.0-8.5) Ur Specific [place] 1.029 (1.002-1.035) Urine Protein Negative (Neg-Trace) mg/dL Urine Glucose (UA) 500 or greater (Negative) mg/dL - Imaging Impressions Abdomen/Pelvis CT 09/06/18 16:19 CONCLUSION: 1. Overall no significant change compared with August 17. 2. Acute pancreatitis similar in appearance to August 17. 3. Severe hepatic steatosis. 4. Bowel containing ventral hernias without evidence for obstruction. 5. Stable left adrenal nodule and small renal cysts. Previous splenectomy. Caprini VTE Risk Assessment Caprini VTE Risk Assessment: No/Low Risk (score <= 1) Caprini Risk Assessment Model: Point Value = 1 Point Value = 2 Point Value = 3 Point Value = 5 Age 41-60 Minor surgery BMI > 25 kg/m2 Swollen legs Varicose veins or History of unexplained or recurrent spontaneous Oral contraceptives or hormone replacement Sepsis (< 1 month) Serious lung disease, including pneumonia (< 1 month) Abnormal pulmonary function Acute myocardial infarction Congestive heart failure (< 1 month) History of inflammatory bowel disease Medical patient at bed rest Age 61-74 Arthroscopic surgery Major open surgery (> 45 min) Laparoscopic surgery (> 45 min) Malignancy Confined to bed (> 72 hours) Immobilizing plaster cast Central venous access Age >= 75 History of VTE Family history of VTE Factor V Leiden Prothrombin [id number] Lupus anticoagulant Anticardiolipin antibodies Elevated serum homocysteine Heparin-induced thrombocytopenia Other congenital or acquired thrombophilia Stroke (< 1 month) Elective arthroplasty Hip, pelvis, or leg fracture Acute spinal cord injury (< 1 month) Prophylaxis Regimen: Total Risk Factor Score Risk Level Prophylaxis Regimen 0-1 Low Early ambulation 2 Moderate Order ONE of the following: *Sequential Compression Device (SCD) *Heparin 5000 units SQ BID 3-4 Higher Order ONE of the following medications: *Heparin 5000 units SQ TID *Enoxaparin/Lovenox 40 mg SQ daily (WT < 150 kg, CrCl > 30 mL/min) *Enoxaparin/Lovenox 30 mg SQ daily (WT < 150 kg, CrCl > 10-29 mL/min) *Enoxaparin/Lovenox 30 mg SQ BID (WT < 150 kg, CrCl > 30 mL/min) AND/OR *Sequential Compression Device (SCD) 5 or more Highest Order ONE of the following medications: *Heparin 5000 units SQ TID (Preferred with Epidurals) *Enoxaparin/Lovenox 40 mg SQ daily (WT < 150 kg, CrCl > 30 mL/min) *Enoxaparin/Lovenox 30 mg SQ daily (WT < 150 kg, CrCl > 10-29 mL/min) *Enoxaparin/Lovenox 30 mg SQ BID (WT < 150 kg, CrCl > 30 mL/min) AND *Sequential Compression Device (SCD) Assessment and Plan - Plan //Acute on chronic alcoholic pancreatitis -Lipase elevated to 4324. = CT abdomen showing pancreatitis, fat stranding, no significant change from August 17. Continue p.o. status, aggressive fluid rehydration. //Acute anion gap metabolic acidosis //Acute lactic acidosis with lactic acid 9.3 on admission = Likely secondary to thiamine deficiency secondary to alcoholism, liver disease. //Suspected thiamine deficiency Patient's tremors acutely worsened after insulin administration, and patient found to have some mild ataxia on exam without encephalopathy. Did not feel this is Wernicke's encephalopathy. Will continue with aggressive thiamine repletion and monitor. /Diabetes mellitus //Hyperglycemia on admission in the 400s Trace ketones on urinalysis. Anion gap is likely secondary to lactate. Do not feel this is DKA We will start on insulin sliding scale. //Hypertension. Pressure acceptable currently. Continue home medications. Discussed Condition With: Patient, nurse, ED physician.
[2018-09-06] MEDS ORDERED: Thiamine Inj 500 MG in Sodium Chlor 0.9% Inj 250 ML IV.SIG SCH (22:00)
[2018-09-06] MEDS: Morphine Inj 4 MG/ML Vial IV.PUSH PRN (22:29)
[2018-09-06] MEDS: Sod Chloride 0.9% Inj 1,000 ML IV.CONT SCH ×2 (22:42→23:28)
[2018-09-07] MEDS: Morphine Inj 4 MG/ML Vial IV.PUSH PRN ×2 (01:03→03:46)
[2018-09-07] MEDS ORDERED: hydrALAZINE HCl Inj 20 MG/ML Vial IV.PUSH ONE (02:25)
[2018-09-07] MEDS ORDERED: Chlorhexidine Gluconate 2% 1 Pack (2 Cloths) TOPICAL SCH (04:00)
[2018-09-07] MEDS ORDERED: Chlorhexidine Gluconate 2% 1 Pack (2 Cloths) TOPICAL PRN ×2 (04:00)
[2018-09-07 04:12] LABS: Calcium 7.2 mg/dL (8.5-10.1); Carbon Dioxide 19.6 meq/L (21.0-32.0); Potassium 4.2 meq/L (3.5-5.1)
[2018-09-07] MEDS ORDERED: Thiamine Inj 500 MG in Sodium Chlor 0.9% Inj 250 ML IV.SIG SCH (05:00)
[2018-09-07] MEDS: Chlorhexidine Gluconate 2% 1 Pack (2 Cloths) TOPICAL SCH (05:24)
[2018-09-07] MEDS ORDERED: Sodium Glycerophosphate Inj 15 MMOL in Sodium Chlor 0.9% Inj 100 ML IV.SIG ONE (07:00)
[2018-09-07] MEDS ORDERED: Sodium Phosphate Inj 15 MMOL in Sodium Chlor 0.9% Inj 100 ML IV.SIG ONE (07:00)
[2018-09-07] MEDS: Morphine Sulfate Inj 2 MG/ML Vial IV.PUSH PRN ×3 (07:32→19:47)
[2018-09-07] MEDS ORDERED: Insulin NovoLOG Aspart Correctional Sugar Inj SQ SCH (08:00)
[2018-09-07] MEDS: amLODIPine 5 MG Tablet PO SCH (08:03)
[2018-09-07] MEDS: Metoprolol Tartrate 50 MG Tablet PO SCH ×2 (08:04→20:52)
--- NOTE | 2018-09-07 08:36 | ECG ---
Date Performed: 09/06/2018 Time Performed: 16:36:06 PTAGE: 52 years EKG: SINUS TACHYCARDIA ANTEROLATERAL MYOCARDIAL INFARCTION ABNORMAL ECG PREVIOUS TRACING : 08/17/2018 12.17 DOCTOR: Thomas Raygoza Interpretating Date/Time 09/07/2018 08:33:28
--- NOTE | 2018-09-07 08:37 | P.PNIM ---
Subjective Interval history: Not seen today. Patient in DTs requiring Precedex drip will consult critical care medicine discussed with Dr. Vizcaino. F/U acute pancreatitis and diabetes mellitus Physical Exam Vital signs: Last Vital Signs Temp 98.7 F 09/07/18 04:00 Pulse 110 H 09/07/18 06:00 Resp 22 09/07/18 06:00 BP 162/92 H 09/07/18 06:00 Pulse Ox 96 09/07/18 06:00 Intake & Output 09/05/18 09/06/18 09/07/18 09/08/18 06:59 06:59 06:59 06:59 Intake Total 3075 / 3075 Output Total 1300 / 1300 400 / 400 Balance 1775 / 1775 -400 / -400 Weight 83.5 kg Narrative: GENERAL: Patient sitting up in bed. Appears uncomfortable. Alert and oriented x3. Bilateral upper extremity tremors. SKIN: Warm and dry. HEAD: Atraumatic. Normocephalic. EYES: Pupils equal and round. No scleral icterus. No injection or drainage. ENT: No nasal bleeding or discharge. Mucous membranes pink and moist. NECK: Trachea midline. No JVD. CARDIOVASCULAR: Regular rate and rhythm. RESPIRATORY: No accessory muscle use. Clear to auscultation. Breath sounds equal bilaterally. GASTROINTESTINAL: Abdomen soft, non-tender, nondistended. Hepatic and splenic margins not palpable. MUSCULOSKELETAL: Extremities without clubbing, cyanosis, or edema. No obvious deformities. NEUROLOGICAL: Awake and alert. No obvious cranial nerve deficits. Motor grossly within normal limits. Five out of 5 muscle strength in the arms and legs. Normal speech. Bilateral upper extremity tremors. Patient does have moderate ataxia on finger to nose which he believes is secondary to the tremors. PSYCHIATRIC: Appropriate mood and affect; insight and judgment normal. Results Labs CBC & Chem 7: 09/06/18 16:30 09/07/18 03:45 Imaging Imaging: ITS Impressions Abdomen/Pelvis CT 09/06/18 16:19 CONCLUSION: 1. Overall no significant change compared with August 17. 2. Acute pancreatitis similar in appearance to August 17. 3. Severe hepatic steatosis. 4. Bowel containing ventral hernias without evidence for obstruction. 5. Stable left adrenal nodule and small renal cysts. Previous splenectomy. Assessment and Plan Plan Acute on chronic alcoholic pancreatitis -Lipase elevated to 4324. = CT abdomen showing pancreatitis, fat stranding, no significant change from August 17. Continue n. p.o. status, aggressive fluid rehydration. Acute anion gap metabolic acidosis Acute lactic acidosis with lactic acid 9.3 on admission = Likely secondary to thiamine deficiency secondary to alcoholism, liver disease. Suspected thiamine deficiency Patient's tremors acutely worsened after insulin administration, and patient found to have some mild ataxia on exam without encephalopathy. Did not feel this is Wernicke's encephalopathy. Will continue with aggressive thiamine repletion and monitor. Diabetes mellitus Hyperglycemia on admission in the 400s Trace ketones on urinalysis. Anion gap is likely secondary to lactate. Do not feel this is DKA We will start on insulin sliding scale. Hypertension. Pressure acceptable currently. Continue home medications. Progress Note: Quality VTE Deep Vein Thrombosis/Pulmonary Embolism Present on Admission: No
[2018-09-07] MEDS: Sod Chloride 0.9% Inj 1,000 ML IV.CONT SCH ×2 (08:45→15:21)
[2018-09-07] MEDS ORDERED: hydrALAZINE HCl Inj 20 MG/ML Vial IV.PUSH PRN (09:19)
[2018-09-07] MEDS: Haloperidol Inj 5 MG/ML Ampul IV.PUSH PRN ×2 (10:15→13:20)
[2018-09-07] MEDS ORDERED: RASS Change Order OTHER ONE (11:00)
[2018-09-07 11:20] LABS: Hematocrit 38.1 % (39.0-51.0); Hemoglobin 12.8 gm/dL (13.0-17.0); Mean Corpuscular HGB Conc 33.7 % (32.0-36.0); Mean Corpuscular Hemoglobin 34.3 pg (27.0-34.0); Mean Corpuscular Volume 101.8 fL (80.0-100.0); Mean Platelet Volume 11.7 fL (7.0-11.0); Platelet Count 243 th/mm3 (150-450); Red Blood Count 3.74 mil/mm3 (4.50-5.90); Red Cell Distribution Width 15.4 % (11.6-17.2); White Blood Count 18.9 th/mm3 (4.0-11.0)
[2018-09-07] MEDS ORDERED: Dextrose 50% in Water 50 ML Vial IV.PUSH PRN (11:26)
[2018-09-07 11:30] LABS: INR 1.1 Ratio; Prothrombin Time 11.5 sec (9.8-11.6)
[2018-09-07 11:36] LABS: Alanine Aminotransferase 130 U/L (12-78); Albumin 2.9 g/dL (3.4-5.0); Anion Gap 10 meq/L (5-15); Aspartate Aminotransferase 122 U/L (15-37); Blood Urea Nitrogen 4 mg/dL (7-18); Calcium 7.3 mg/dL (8.5-10.1); Carbon Dioxide 23.3 meq/L (21.0-32.0); Chloride 99 meq/L (98-107); Glomerular Filtration Rate Greater Than 89 mL/min (>89); Glucose,Random 142 mg/dL (74-106); Potassium 3.5 meq/L (3.5-5.1); Sodium 132 meq/L (136-145)
[2018-09-07 11:38] LABS: Alkaline Phosphatase 167 U/L (45-117); Total Protein 7.3 g/dL (6.4-8.2)
--- NOTE | 2018-09-07 12:11 | XR ---
EXAM DATE: 09/07/2018 12:07 PM EST AGE/SEX: 52 years / Male INDICATIONS: Short of breath, evaluate COPD CLINICAL DATA: This is the patient's subsequent encounter. Patient reports that signs and symptoms h ave been present for 1 week and indicates a pain score of Nonresponsive. MEDICAL/SURGICAL HISTORY: Chronic obstructive pulmonary disease. Congestive heart failure. Pa ncreatitis. . hernia repair COMPARISON: [facility], CHEST 1V SINGLE AP, 08/17/2018. . FINDINGS: A single AP view of the chest demonstrates the lungs to be symmetrically aerated without evidence of mass, infiltrate or effusion. The cardiomediastinal contours are unremarkable. Osseous structures a re intact. CONCLUSION: No acute cardiopulmonary disease. Electronically signed by: Brannon Shelby MD 09/07/2018 12:10 PM EST
[2018-09-07 12:26] LABS: Howell-Jolly Bodies Present; Lymphocytes 9 % (9-44); Monocytes 5 % (0-8); Pappenheimer Bodies Present; Tallied Nucleated RBC 1 (0-0)
[2018-09-07 12:27] LABS: Platelet Estimate Normal (Normal)
--- NOTE | 2018-09-07 12:36 | MB ---
cc: Hugo Reynoso MD DATE: 09/07/2018 HISTORY OF PRESENT ILLNESS: The patient is a 52-year-old male with a past medical history of ETOH abuse, pancreatitis, COPD, hypertension, coronary artery disease, who was admitted to [facility] on 09/06/2018 with epigastric abdominal pain associated with nausea and vomiting. The patient was found to have elevated lipase level at 4324 and lactic acidosis with lactic acid level of 9.3. A CT scan of the abdomen and pelvis was obtained which showed acute pancreatitis and severe hepatic steatosis. He was admitted under hospitalist service. The patient was placed on a CIWA protocol. Critical Care Medicine was consulted for agitation, restlessness and a possible need of a Precedex drip. The patient was given Haldol and Ativan. When seen, he was tachycardic with heart rate of 109 to 120's and hypertensive with systolic blood pressure 160's to 170's. He is on room air oxygen with saturation of 94%. The patient denies any chest pain or shortness of breath; however, still reports abdominal pain. PAST MEDICAL HISTORY: Significant for pancreatitis, ETOH abuse, COPD, hypertension, coronary artery disease. PAST SURGICAL HISTORY: Previous gastric surgery. ALLERGIES: NO KNOWN DRUG ALLERGIES. FAMILY HISTORY: Coronary artery disease, diabetes mellitus, breast cancer and pancreatic cancer, it runs in the family. SOCIAL HISTORY: Active smoker and a drinker. MEDICATIONS AT HOME: Include: 1. Thiamine. 2. Multivitamins. 3. Lopressor. 4. Lisinopril. 5. Aspirin. 6. Norvasc. REVIEW OF SYSTEMS: As per HPI. Rest of the review of systems is unremarkable. PHYSICAL EXAMINATION: GENERAL: A 52-year-old male lying in bed, in no acute respiratory distress. The patient was agitated and restless earlier. Appears doing better post-Ativan and morphine. VITAL SIGNS: Afebrile with temperature 98.1, pulse of 109, respiratory rate 16, blood pressure 162/92 earlier saturation 94% on room air. HEENT: Atraumatic and normocephalic. Pupils equal, round, reactive to light and accommodation. Extraocular muscles intact. Conjunctivae pink. Nonicteric sclerae. Oral mucosa within normal. NECK: Supple. No JVD, adenopathy, or thyromegaly. Trachea in the midline. CARDIOVASCULAR: Tachycardic. Normal S1, S2. No murmurs, rubs or gallops noted. PULMONARY: Bilateral equal air entry. No rales or wheezing. ABDOMEN: Soft. Mild tenderness upon palpation. No distention. Positive bowel sounds. EXTREMITIES: No cyanosis, clubbing or edema. NEUROLOGIC: Intermittent confusion. No focal sensory deficit. LABORATORY DATA: WBC 9.8, hemoglobin 14, hematocrit 42, platelet count 321. Sodium 133, potassium 4, chloride 98, CO2 18.9, BUN 5, creatinine 1.05, glucose 194. Lactic acid 8.1, from 9.3. Lipase 4324. Alcohol level 62. Review of x-ray, CT abdomen showed acute pancreatitis and hepatic steatosis. IMPRESSION: 1. Acute pancreatitis. 2. ETOH intoxication. 3. Lactic acidemia. 4. Hyperglycemia. 5. Elevated liver enzymes and hepatic steatosis. 6. Hypertension. 7. Altered mental status. 8. Chronic obstructive pulmonary disease. 9. Coronary arteries. RECOMMENDATIONS: 1. Monitor neuro status closely. The patient is on a CIWA protocol. Continue with thiamine, add multivitamins and folic acid. 2. Oxygen p.r.n. to maintain sats above 92%. 3. Bronchodilators in the form of DuoNeb every 6 hours plus every 2 hours p.r.n. for shortness of breath. We will check a baseline chest x-ray. 4. Monitor heart rate and blood pressure closely and maintain MAP greater than 65 mmHg. Serial lactic acid monitoring until clear. The patient was given approximately 4 liters of crystalloids. Since arrival. We will give an additional 1 liter bolus of NS and continue with maintenance fluids and is 125 mL an hour. 5. Continue antihypertensive medication, which include: Norvasc 10 mg daily, Lopressor 50 mg b.i.d. In addition, he is on clonidine and Vasotec p.r.n. Continue with aspirin 81 mg daily. 6. Monitor renal function, I's and O's and electrolyte replacement per protocol. Continued NS at 125 mL an hour. 7. Keep n.p.o. for now. Continue with Protonix 40 mg daily for GI prophylaxis. Monitor LFTs. Check hepatitis profile. A CT abdomen and pelvis showed severe hepatic steatosis and acute pancreatitis. Monitor lipase level. Monitor for signs of infection, which include fever and WBC. We will check urinalysis with culture if indicated and a chest x-ray. 8. Increase sliding scale insulin to medium scale for glycemic control. 9. Monitor CBC. 10. Gastrointestinal prophylaxis with Protonix 40 mg daily and deep venous thrombosis prophylaxis and will add heparin subcutaneously. 11. We will repeat labs now, which include CBC, CMP, lactic acid level and coagulation profile. MD SISSY Contreras/vonnie/zaynab , 11:41 AM , 11:57 AM
[2018-09-07] MEDS: Folic Acid 1 MG Tablet PO SCH (13:19)
[2018-09-07] MEDS: Piperacil/Tazo 4.5 GM Premix 4.5 GM/100 ML BAG IV.SIG SCH ×2 (13:20→21:06)
[2018-09-07] MEDS: Insulin NovoLIN Regular Correctional Sugar Inj SQ SCH ×2 (13:23→17:11)
[2018-09-07 14:51] LABS: Hepatitits B Surface Antigen Nonreactive (Nonreactive)
[2018-09-07 15:09] LABS: Hepatitis A IgM Antibody Nonreactive (Nonreactive)
[2018-09-07 15:40] LABS: Hemoglobin A1c 9.3 % (4.3-6.0)
[2018-09-07] MEDS: Heparin - SQ 10,000 UNITS/ML Vial SQ SCH (20:52)
[2018-09-07] MEDS: Dexmedetomidine Inj 200 MCG in Sodium Chlor 0.9% Inj 48 ML IV.CONT PRN (22:49)
[2018-09-08] MEDS: Sod Chloride 0.9% Inj 1,000 ML IV.CONT SCH ×3 (00:12→17:13)
[2018-09-08] MEDS: Insulin NovoLIN Regular Correctional Sugar Inj SQ SCH ×4 (00:12→17:39)
[2018-09-08] MEDS: Dexmedetomidine Inj 200 MCG in Sodium Chlor 0.9% Inj 48 ML IV.CONT PRN (04:49)
[2018-09-08] MEDS: Chlorhexidine Gluconate 2% 1 Pack (2 Cloths) TOPICAL SCH (04:50)
[2018-09-08] MEDS: Piperacil/Tazo 4.5 GM Premix 4.5 GM/100 ML BAG IV.SIG SCH ×3 (05:26→21:54)
[2018-09-08] MEDS: chlordiazePOXIDE 25 MG Capsule PO SCH ×3 (08:00→20:04)
--- NOTE | 2018-09-08 08:16 | P.PNCC ---
Subjective Subjective Remarks/Hospital Course: The patient is a 52-year-old male with a past medical history of ETOH abuse, pancreatitis, COPD, hypertension, coronary artery disease, who was admitted to [facility] on 09/06/2018 with epigastric abdominal pain associated with nausea and vomiting. The patient was found to have elevated lipase level at 4324 and lactic acidosis with lactic acid level of 9.3. A CT scan of the abdomen and pelvis was obtained which showed acute pancreatitis and severe hepatic steatosis. He was admitted under hospitalist service. The patient was placed on a CIWA protocol. Critical Care Medicine was consulted for agitation, restlessness and a possible need of a Precedex drip. The patient was given Haldol and Ativan. When seen, he was tachycardic with heart rate of 109 to 120' s and hypertensive with systolic blood pressure 160's to 170's. He is on room air oxygen with saturation of 94%. The patient denies any chest pain or shortness of breath; however, still reports abdominal pain. 09/08/18: Patient remains on Precedex at 0.3 mcg/kg/h. He is calm but confused oriented to person only he does not know where he is. We will start scheduled Librium and wean to DC Precedex. Lactic acid was trending down yesterday was three-point 6 repeat today. Objective Vital Signs / I&O: Vital Signs 09/07/18 10:00 09/07/18 12:00 09/07/18 12:15 Temperature 99.4 F Pulse Rate 106 H 91 H 98 H Respiratory Rate 33 H 16 Blood Pressure 161/99 H Pulse Oximetry 93 L 09/07/18 14:00 09/07/18 15:17 09/07/18 16:00 Temperature 98.9 F Pulse Rate 85 91 H 92 H Respiratory Rate 20 18 Blood Pressure 141/91 H Pulse Oximetry 09/07/18 16:30 09/07/18 17:00 09/07/18 17:30 Temperature Pulse Rate 91 H 95 H 91 H Respiratory Rate 30 H 29 H Blood Pressure 147/87 H 153/82 H 144/94 H Pulse Oximetry 95 09/07/18 18:00 09/07/18 18:06 09/07/18 18:30 Temperature Pulse Rate 96 H 101 H 98 H Respiratory Rate 13 Blood Pressure 136/88 140/91 H Pulse Oximetry 94 L 92 L 12/11/18 19:00 09/07/18 19:01 09/07/18 19:30 Temperature Pulse Rate 97 H 101 H 100 H Respiratory Rate 37 H 28 H 39 H Blood Pressure 145/103 H 143/86 H Pulse Oximetry 81 L 88 L 96 09/07/18 20:00 09/07/18 20:30 09/07/18 20:32 Temperature 98.4 F Pulse Rate 92 H 101 H 100 H Respiratory Rate 32 H 34 H 18 Blood Pressure 157/96 H 158/100 H Pulse Oximetry 96 09/07/18 20:57 09/07/18 21:00 09/07/18 21:30 Temperature Pulse Rate 106 H 102 H 109 H Respiratory Rate 44 H 42 H 36 H Blood Pressure 157/101 H 155/97 H 136/97 H Pulse Oximetry 94 L 95 95 09/07/18 22:00 09/07/18 22:30 09/07/18 23:00 Temperature Pulse Rate 103 H 91 H 101 H Respiratory Rate 40 H 31 H 34 H Blood Pressure 161/97 H 170/98 H 152/100 H Pulse Oximetry 96 95 95 09/07/18 23:03 09/07/18 23:30 09/07/18 23:32 Temperature Pulse Rate 103 H 92 H 90 Respiratory Rate 38 H 39 H 29 H Blood Pressure 156/99 H 154/100 H 153/103 H Pulse Oximetry 96 94 L 94 L 09/07/18 23:35 09/08/18 00:00 09/08/18 00:30 Temperature 99.4 F Pulse Rate 92 H 84 87 Respiratory Rate 31 H 30 H 33 H Blood Pressure 152/101 H 140/89 147/96 H Pulse Oximetry 94 L 94 L 94 L 09/08/18 01:00 09/08/18 01:30 09/08/18 02:00 Temperature Pulse Rate 81 80 79 Respiratory Rate 31 H 30 H 32 H Blood Pressure 145/96 H 134/85 126/84 Pulse Oximetry 97 96 96 09/08/18 02:31 09/08/18 03:00 09/08/18 03:30 Temperature Pulse Rate 87 84 80 Respiratory Rate 41 H 31 H 37 H Blood Pressure 141/97 H 133/89 141/93 H Pulse Oximetry 98 97 96 09/08/18 04:00 09/08/18 04:16 09/08/18 04:30 Temperature 98.2 F Pulse Rate 73 77 73 Respiratory Rate 30 H 20 30 H Blood Pressure 131/89 129/85 Pulse Oximetry 97 96 09/08/18 05:00 09/08/18 06:00 Temperature Pulse Rate 74 70 Respiratory Rate 28 H Blood Pressure 118/75 Pulse Oximetry 95 Intake & Output 09/07/18 09/08/18 09/08/18 18:59 06:59 18:59 Intake Total 1530 / 1530 1490 / 1490 Output Total 2350 / 2350 2099 Balance -820 / -820 -610 / -610 Weight 83.4 kg Intake: IV 1470 / 1470 1250 / 1250 Precedex Inj 200 MCG In NS Inj 50 / 50 48 ML @ 0.2 MCG/KG/HR 4.17 mls/ hr IV.CONT TITRATE PRN Rx#: [id number] NS Inj 1,000 ML @ 125 mls/hr IV 1000 / 1000 1000 / 1000 .CONT .Q8H DONNY Rx#:[id number] Zosyn 4.5 GM Premix 4.5 gm In 100 / 100 200 / 200 100 ml @ 200 mls/hr IV.SIG Q8H DONNY Rx#:[id number] Glycophos Inj 15 MMOL In NS Inj 115 / 115 100 ML @ 25 mls/hr IV.SIG ONCE ONE Rx#:[id number] Thiamine Inj 500 MG In NS Inj 255 / 255 250 ML @ 62.5 mls/hr IV.SIG Q8H DONNY Rx#:[id number] Oral 60 / 60 240 / 240 Output: Urine 2350 / 2350 2099 Other: Date of Last Bowel Movement 09/06/18 09/06/18 # Bowel Movements 0 0 Result Diagrams: 09/07/18 10:48 09/07/18 10:48 Objective Remarks: GENERAL: A 52-year-old male lying in bed, in no acute respiratory distress. Appears calm but oriented to person only HEENT: Atraumatic and normocephalic. Pupils equal, round, Conjunctivae pink. Nonicteric sclerae. Oral mucosa within normal. NECK: Supple. No JVD, adenopathy, or thyromegaly. Trachea in the midline. CARDIOVASCULAR: Tachycardic. Normal S1, S2. No murmurs, rubs or gallops noted. PULMONARY: Bilateral equal air entry. No rales or wheezing. ABDOMEN: Soft. Mild tenderness upon palpation. Well-healed surgical scars in the midline with left-sided ventral hernia without evidence of incarceration EXTREMITIES: No cyanosis, clubbing or edema. NEUROLOGIC: Intermittent confusion. Oriented to person only. Appears calm currently in restraints. No focal deficits Assessment and Plan - Assessment and Plan Plan: IMPRESSION: Acute pancreatitis. Alcohol withdrawal syndrome Lactic acidemia-improving Leukocytosis Hyperglycemia. Elevated liver enzymes and hepatic steatosis. Hypertension. Altered mental status. Chronic obstructive pulmonary disease. Coronary artery disease RECOMMENDATIONS: 1. Monitor neuro status closely. The patient is on a CIWA protocol. Continue with thiamine, add multivitamins and folic acid. Start Librium scheduled 25 mg p.o. every 6 hours. Use Haldol at a higher dose as needed 5 mg IV every 2 hours as needed for agitation. Discontinue Precedex 2. Oxygen p.r.n. to maintain sats above 92%. 3. Bronchodilators in the form of DuoNeb every 6 hours plus every 2 hours p.r.n. for shortness of breath. 4. Monitor heart rate and blood pressure closely and maintain MAP greater than 65 mmHg. Serial lactic acid monitoring until clear. The patient was given approximately 5 liters of crystalloids. Continue with maintenance fluids and is 125 mL an hour. 5. Continue antihypertensive medication, which include: Norvasc 10 mg daily, Lopressor 50 mg b.i.d. In addition, he is on clonidine and Vasotec p.r.n. Continue with aspirin 81 mg daily. 6. Monitor renal function, I's and O's and electrolyte replacement per protocol. Continued NS at 125 mL an hour. 7. Keep n.p.o. for now. Continue with Protonix 40 mg daily for GI prophylaxis. Monitor LFTs. Check hepatitis profile. A CT abdomen and pelvis showed severe hepatic steatosis and acute pancreatitis. Monitor lipase level. Monitor for signs of infection, which include fever and WBC. We will check urinalysis with culture if indicated and a chest x-ray. Repeat CBC today if continues to be elevated placed on empiric Zosyn 8. Increase sliding scale insulin to medium scale for glycemic control. 9. Monitor CBC. 10. Gastrointestinal prophylaxis with Protonix 40 mg daily and deep venous thrombosis prophylaxis and will add heparin subcutaneously. 11. We will repeat labs STAT, which include CBC, CMP, lactic acid Level 2. Patient is more stable with improving alcohol withdrawal symptoms. Lactic acid is trending down. Appears adequately resuscitated now. We will consult hospitalist to assume care 09/09/2018 Code Status: Full
[2018-09-08] MEDS ORDERED: Sodium Chloride 0.9% 2 ML Flush PRN IV.FLUSH (08:24)
[2018-09-08] MEDS: amLODIPine 5 MG Tablet PO SCH (08:30)
[2018-09-08] MEDS: Haloperidol Inj 5 MG/ML Ampul IV.PUSH PRN ×5 (08:30→21:55)
[2018-09-08] MEDS: Thiamine Inj 100 MG in Sodium Chlor 0.9% Inj 100 ML IV.SIG SCH (08:30)
[2018-09-08] MEDS: Sodium Chloride 0.9% 2 ML Flush BID IV.FLUSH SCH ×2 (08:30→20:04)
[2018-09-08] MEDS: Metoprolol Tartrate 50 MG Tablet PO SCH ×2 (08:30→20:04)
[2018-09-08] MEDS: Folic Acid 1 MG Tablet PO SCH (08:30)
[2018-09-08] MEDS: Heparin - SQ 10,000 UNITS/ML Vial SQ SCH ×2 (08:30→20:04)
[2018-09-08 09:32] LABS: Baso # (Auto) 0.1 th/mm3 (0.0-0.2); Baso % (Auto) 0.3 % (0.0-2.0); Eos # (Auto) 0.1 th/mm3 (0.0-0.4); Eos % (Auto) 0.4 % (0.0-4.0); Hematocrit 35.7 % (39.0-51.0); Hemoglobin 12.5 gm/dL (13.0-17.0); Lymph # (Auto) 2.3 th/mm3 (1.0-4.8); Lymph % (Auto) 13.1 % (9.0-44.0); Mean Corpuscular HGB Conc 35.1 % (32.0-36.0); Mean Corpuscular Hemoglobin 35.1 pg (27.0-34.0); Mean Corpuscular Volume 99.9 fL (80.0-100.0); Mean Platelet Volume 11.4 fL (7.0-11.0); Mono # (Auto) 1.3 th/mm3 (0.0-0.9); Mono % (Auto) 7.4 % (0.0-8.0); Neut # (Auto) 13.8 th/mm3 (1.8-7.7); Neut % (Auto) 78.8 % (16.0-70.0); Platelet Count 204 th/mm3 (150-450); Red Blood Count 3.57 mil/mm3 (4.50-5.90); Red Cell Distribution Width 15.2 % (11.6-17.2); White Blood Count 17.5 th/mm3 (4.0-11.0)
[2018-09-08 09:55] LABS: Alanine Aminotransferase 79 U/L (12-78); Albumin 2.3 g/dL (3.4-5.0); Alkaline Phosphatase 127 U/L (45-117); Anion Gap 9 meq/L (5-15); Aspartate Aminotransferase 59 U/L (15-37); Blood Urea Nitrogen 7 mg/dL (7-18); Calcium 7.5 mg/dL (8.5-10.1); Carbon Dioxide 20.9 meq/L (21.0-32.0); Chloride 108 meq/L (98-107); Glomerular Filtration Rate Greater Than 89 mL/min (>89); Glucose,Random 160 mg/dL (74-106); Magnesium 2.4 mg/dL (1.5-2.5); Potassium 3.5 meq/L (3.5-5.1); Sodium 138 meq/L (136-145); Total Protein 6.7 g/dL (6.4-8.2)
[2018-09-08] MEDS ORDERED: Pantoprazole Inj 40 MG Vial IV.PUSH SCH (12:00)
[2018-09-08] MEDS: Morphine Inj 4 MG/ML Vial IV.PUSH PRN ×5 (12:41→21:55)
[2018-09-09] MEDS: Insulin NovoLIN Regular Correctional Sugar Inj SQ SCH ×4 (00:53→17:11)
[2018-09-09] MEDS: Haloperidol Inj 5 MG/ML Ampul IV.PUSH PRN ×2 (00:54→04:37)
[2018-09-09] MEDS: Morphine Inj 4 MG/ML Vial IV.PUSH PRN ×2 (00:55→04:38)
[2018-09-09] MEDS: chlordiazePOXIDE 25 MG Capsule PO SCH ×4 (01:58→21:39)
[2018-09-09] MEDS: Sod Chloride 0.9% Inj 1,000 ML IV.CONT SCH ×5 (01:58→23:36)
[2018-09-09] MEDS: Chlorhexidine Gluconate 2% 1 Pack (2 Cloths) TOPICAL SCH (06:48)
[2018-09-09] MEDS: Piperacil/Tazo 4.5 GM Premix 4.5 GM/100 ML BAG IV.SIG SCH ×3 (06:49→21:43)
[2018-09-09] MEDS: Metoprolol Tartrate 50 MG Tablet PO SCH ×2 (08:15→21:39)
[2018-09-09] MEDS: Folic Acid 1 MG Tablet PO SCH (08:15)
[2018-09-09] MEDS: amLODIPine 5 MG Tablet PO SCH (08:15)
[2018-09-09] MEDS: Sodium Chloride 0.9% 2 ML Flush BID IV.FLUSH SCH ×2 (08:16→21:46)
[2018-09-09] MEDS: Thiamine Inj 100 MG in Sodium Chlor 0.9% Inj 100 ML IV.SIG SCH (08:16)
[2018-09-09] MEDS: Heparin - SQ 10,000 UNITS/ML Vial SQ SCH ×2 (08:16→21:40)
[2018-09-09] MEDS: Morphine Sulfate Inj 2 MG/ML Vial IV.PUSH PRN ×6 (08:21→23:31)
--- NOTE | 2018-09-09 10:06 | P.PNIM ---
Subjective Interval history: Patient is currently no acute distress. He says his abdominal pain has improved. Physical Exam Vital signs: Vital Signs 09/08/18 10:00 09/08/18 10:30 09/08/18 11:00 Temperature Pulse Rate 71 77 64 Respiratory Rate 30 H 32 H 28 H Blood Pressure 122/79 132/88 Pulse Oximetry 92 L 95 94 L 09/08/18 11:03 09/08/18 11:30 09/08/18 12:00 Temperature 98.9 F Pulse Rate 71 77 77 Respiratory Rate 34 H 26 H 32 H Blood Pressure 126/79 134/95 H 126/86 Pulse Oximetry 94 L 95 95 09/08/18 12:30 09/08/18 13:00 09/08/18 13:31 Temperature Pulse Rate 77 77 80 Respiratory Rate 34 H 35 H 31 H Blood Pressure 143/91 H 125/87 141/86 H Pulse Oximetry 95 94 L 93 L 09/08/18 14:00 09/08/18 14:30 09/08/18 15:00 Temperature Pulse Rate 83 83 84 Respiratory Rate 33 H 30 H 19 Blood Pressure 145/92 H 136/91 H 140/96 H Pulse Oximetry 95 95 94 L 09/08/18 15:30 09/08/18 16:00 09/08/18 18:00 Temperature 97.2 F L Pulse Rate 90 82 87 Respiratory Rate 25 H 19 27 H Blood Pressure 152/98 H 145/93 H 138/84 Pulse Oximetry 97 96 94 L 09/08/18 18:30 09/08/18 19:00 09/08/18 20:00 Temperature 97.8 F Pulse Rate 87 98 H 96 H Respiratory Rate 24 22 24 Blood Pressure 111/68 137/83 150/84 H Pulse Oximetry 97 96 98 09/08/18 20:10 09/08/18 20:13 09/08/18 21:00 Temperature Pulse Rate 97 H 97 H Respiratory Rate 20 22 Blood Pressure 156/90 H Pulse Oximetry 98 96 09/08/18 22:00 09/08/18 23:00 09/09/18 00:00 Temperature 97.6 F Pulse Rate 89 82 85 Respiratory Rate 29 H 21 24 Blood Pressure 126/78 138/84 147/88 H Pulse Oximetry 96 95 94 L 09/09/18 01:00 09/09/18 02:00 09/09/18 03:47 Temperature Pulse Rate 87 84 88 Respiratory Rate 28 H 28 H 20 Blood Pressure 137/89 130/80 Pulse Oximetry 96 96 09/09/18 04:00 09/09/18 05:00 09/09/18 06:00 Temperature 97.5 F L Pulse Rate 96 H 84 87 Respiratory Rate 20 20 Blood Pressure 137/79 144/87 H Pulse Oximetry 94 L Intake & Output 09/08/18 09/09/18 09/09/18 18:59 06:59 18:59 Intake Total 2941 / 2941 1660 / 1660 1000 / 1000 Output Total 1325 / 1325 1800 / 1800 Balance 1616 / 1616 -140 / -140 1000 / 1000 Weight 85 kg Intake: IV 2201 / 2201 1100 / 1100 1000 / 1000 NS Inj 1,000 ML @ 125 mls/hr IV 2000 / 2000 1000 / 1000 1000 / 1000 .CONT .Q8H DONNY Rx#:[id number] Zosyn 4.5 GM Premix 4.5 gm In 100 / 100 100 / 100 100 ml @ 200 mls/hr IV.SIG Q8H DONNY Rx#:[id number] Thiamine Inj 100 MG In NS Inj 101 / 101 100 ML @ 100 mls/hr IV.SIG DAILY DONNY Rx#:[id number] Oral 740 / 740 560 / 560 Output: Urine 1325 / 1325 1800 / 1800 Other: Date of Last Bowel Movement 09/07/18 09/07/18 # Bowel Movements 0 Narrative: General patient in no acute distress HEENT extraocular movements are intact, clear oropharyngeal mucosa, no JVD Cardiovascular S1-S2 audible, RRR, no murmurs rubs or gallops Respiratory clear to auscultation bilaterally Abdomen soft, nontender, nondistended, normal bowel sounds, umbilical hernia noted, reducible. Extremities no edema 2+ distal pulses in bilateral upper and lower extremities Neuro cranial nerves II through XII intact Results - Labs CBC & Chem 7: 09/08/18 09:16 09/08/18 09:16 Laboratory Results - last 24 hr 09/07/18 09/08/18 09/08/18 03:45 09:16 17:25 Sodium 138 Potassium 3.5 Chloride 108 H D Carbon Dioxide 20.9 L Anion Gap 9 BUN 7 Creatinine 0.57 L Estimated GFR Greater than 89 POC Glucose 193 H Random Glucose 160 H Calcium 7.5 L Magnesium 2.4 Total Bilirubin 1.3 H AST 59 H ALT 79 H Alkaline Phosphatase 127 H Total Protein 6.7 D Albumin 2.3 L D Thiamine 372 H 09/08/18 09/09/18 23:44 06:28 Sodium Potassium Chloride Carbon Dioxide Anion Gap BUN Creatinine Estimated GFR POC Glucose 180 H 148 H Random Glucose Calcium Magnesium Total Bilirubin AST ALT Alkaline Phosphatase Total Protein Albumin Thiamine Assessment and Plan - Plan This patient is a 52-year-old male with an extensive history of alcohol abuse and pancreatitis. Patient presented to our emergency part with complaints of abdominal pain as well as nausea with vomiting. He denied having any blood in his vomit. The patient was found to have an elevated serum glucose in the 400s as well as a significantly elevated lipase. Imaging of the abdomen showed findings consistent with pancreatitis. The patient was also in alcohol withdrawals. 1. Alcohol withdrawals 2. Chronic pancreatitis The patient initially was on CIWA protocol. His tremors have improved significantly. Patient was advised to avoid alcohol and he says he wants to quit. Continue multivitamin, thiamine, folate. Patient had a significantly elevated lipase. His abdominal pain has improved since admission. Patient started on a diet. He will be transferred out of the intensive care unit today. 3. Anion gap metabolic acidosis Likely secondary to elevated lactate on admission. He has improved significantly. 4. Diabetes mellitus type 2 Blood sugars currently running between 1 4190. Continue low-dose insulin sliding scale Continue monitor the patient's blood sugars. 5. COPD Currently on room air, not in exacerbation Continue DuoNeb treatments as needed. Print for DVT prophylax as per
[2018-09-10] MEDS: Insulin NovoLIN Regular Correctional Sugar Inj SQ SCH ×3 (00:09→12:58)
[2018-09-10] MEDS: chlordiazePOXIDE 25 MG Capsule PO SCH ×3 (02:26→13:31)
[2018-09-10] MEDS: Morphine Sulfate Inj 2 MG/ML Vial IV.PUSH PRN ×5 (02:26→14:17)
[2018-09-10] MEDS: Chlorhexidine Gluconate 2% 1 Pack (2 Cloths) TOPICAL SCH (05:49)
[2018-09-10] MEDS: Sod Chloride 0.9% Inj 1,000 ML IV.CONT SCH (06:59)
[2018-09-10] MEDS: Piperacil/Tazo 4.5 GM Premix 4.5 GM/100 ML BAG IV.SIG SCH ×2 (06:59→13:23)
[2018-09-10 07:00] LABS: Baso # (Auto) 0.1 th/mm3 (0.0-0.2); Baso % (Auto) 0.9 % (0.0-2.0); Eos # (Auto) 0.4 th/mm3 (0.0-0.4); Hematocrit 34.7 % (39.0-51.0); Lymph % (Auto) 31.9 % (9.0-44.0); Mean Corpuscular HGB Conc 34.7 % (32.0-36.0); Mean Corpuscular Hemoglobin 35.2 pg (27.0-34.0); Mean Corpuscular Volume 101.5 fL (80.0-100.0); Mean Platelet Volume 11.2 fL (7.0-11.0); Mono % (Auto) 10.8 % (0.0-8.0); Neut # (Auto) 4.9 th/mm3 (1.8-7.7); Neut % (Auto) 52.4 % (16.0-70.0); Platelet Count 221 th/mm3 (150-450); Red Blood Count 3.42 mil/mm3 (4.50-5.90); Red Cell Distribution Width 15.5 % (11.6-17.2); White Blood Count 9.3 th/mm3 (4.0-11.0)
[2018-09-10 07:29] LABS: Anion Gap 11 meq/L (5-15); Blood Urea Nitrogen 5 mg/dL (7-18); Calcium 8.4 mg/dL (8.5-10.1); Carbon Dioxide 22.9 meq/L (21.0-32.0); Chloride 107 meq/L (98-107); Glomerular Filtration Rate Greater Than 89 mL/min (>89); Glucose,Random 151 mg/dL (74-106); Magnesium 1.6 mg/dL (1.5-2.5); Potassium 3.2 meq/L (3.5-5.1); Sodium 141 meq/L (136-145)
[2018-09-10] MEDS: Folic Acid 1 MG Tablet PO SCH (08:11)
[2018-09-10] MEDS: amLODIPine 5 MG Tablet PO SCH (08:12)
[2018-09-10] MEDS: Metoprolol Tartrate 50 MG Tablet PO SCH (08:13)
[2018-09-10] MEDS: Heparin - SQ 10,000 UNITS/ML Vial SQ SCH (08:13)
[2018-09-10] MEDS: Sodium Chloride 0.9% 2 ML Flush BID IV.FLUSH SCH (08:15)
--- NOTE | 2018-09-10 15:58 | P.DS ---
Date of admission: 09/06/18 19:31 Primary care physician: [facility] Brief History from admission: 52-year-old male with a history of alcoholic pancreatitis, alcohol abuse, chronic umbilical hernia who presents with 1 day history of constant dull epigastric pain, nausea with clear vomiting. Patient was admitted for alcohol withdrawals and elevated blood sugars. DS: Medications - Discharge Medications Prescriptions: metformin 500 mg PO BID #60 tab DS: Summary Hospital Course: This patient is a 52-year-old male with an extensive history of alcohol abuse and pancreatitis. Patient presented to our emergency part with complaints of abdominal pain as well as nausea with vomiting. He denied having any blood in his vomit. The patient was found to have an elevated serum glucose in the 400s as well as a significantly elevated lipase. Imaging of the abdomen showed findings consistent with pancreatitis. The patient was also in alcohol withdrawals. 1. Alcohol withdrawals 2. Chronic pancreatitis The patient initially was on CIWA protocol. His tremors have improved significantly. Patient was advised to avoid alcohol and he says he wants to quit. Continue multivitamin, thiamine, folate. Patient had a significantly elevated lipase. His abdominal pain has improved since admission. Patient started on a diet. Patient is tolerating his diet well. Patient is ready to be discharged. He was advised to avoid alcohol. 3. Anion gap metabolic acidosis Likely secondary to elevated lactate on admission. Resolved. 4. Diabetes mellitus type 2 Blood sugars currently running between 140s to 190s. Patient was on low dose sliding scale in the hospital. Will be discharged with metformin. Scripts given to the patient. Follow up with PCP at the [facility] in a week after discharge. Instructions given to the patient. 5. COPD Patient on room air. Says he does not need inhalers on discharge because he doesn't get short of breath. I recommend he get outpt PFTs done to evaluate for copd. - Time Spent with Patient Total time spent providing and/or coordinating discharge services: Greater than 30 minutes - Quality: VTE Deep Vein Thrombosis/Pulmonary Embolism Present on Admission: No Exam Vital signs: Vital Signs 09/09/18 16:00 09/09/18 20:00 09/10/18 00:00 Temperature 98.2 F 98.2 F 98.5 F Pulse Rate 83 82 75 Respiratory Rate 19 Blood Pressure 142/96 H 136/84 145/96 H Pulse Oximetry 95 95 95 09/10/18 02:30 09/10/18 04:00 09/10/18 08:00 Temperature 98.6 F 97.9 F Pulse Rate 98 H 80 Respiratory Rate 19 19 17 Blood Pressure 138/79 147/100 H Pulse Oximetry 97 97 09/10/18 08:18 09/10/18 12:00 Temperature 97.5 F L Pulse Rate 89 77 Respiratory Rate 18 17 Blood Pressure 134/88 Pulse Oximetry 97 96 Intake & Output 09/09/18 09/10/18 09/10/18 18:59 06:59 18:59 Intake Total 1811 / 1811 3060 / 3060 1050 / 1050 Output Total 600 / 600 1650 / 1650 Balance 1211 / 1211 1410 / 1410 1050 / 1050 Weight 77.5 kg Intake: IV 1331 / 1331 2100 / 2100 1050 / 1050 NS Inj 1,000 ML @ 125 mls/hr IV 1000 / 1000 2000 / 2000 850 / 850 .CONT .Q8H DONNY Rx#:[id number] Zosyn 4.5 GM Premix 4.5 gm In 200 / 200 100 / 100 200 / 200 100 ml @ 200 mls/hr IV.SIG Q8H DONNY Rx#:[id number] Thiamine Inj 100 MG In NS Inj 101 / 101 100 ML @ 100 mls/hr IV.SIG DAILY DONNY Rx#:[id number] Oral 480 / 480 960 / 960 Output: Urine 600 / 600 1650 / 1650 Other: # Urine Diapers 2 Date of Last Bowel Movement 09/07/18 09/07/18 09/09/18 # Bowel Movements 0 Narrative: General patient in no acute distress HEENT extraocular movements are intact, clear oropharyngeal mucosa, no JVD Cardiovascular S1-S2 audible, RRR, no murmurs rubs or gallops Respiratory clear to auscultation bilaterally Abdomen soft, nontender, nondistended, normal bowel sounds, umbilical hernia noted, reducible. Extremities no edema 2+ distal pulses in bilateral upper and lower extremities Neuro cranial nerves II through XII intact Results Procedures completed during hospitalization: none Labs on day of discharge: Labs from last 24 hours 09/10/18 09/10/18 09/10/18 12:24 06:25 05:39 WBC 9.3 RBC 3.42 L Hgb 12.0 L Hct 34.7 L MCV 101.5 H MCH 35.2 H MCHC 34.7 RDW 15.5 Plt Count 221 MPV 11.2 H Neut % (Auto) 52.4 Lymph % (Auto) 31.9 Sierra % (Auto) 10.8 H Eos % (Auto) 4.0 Baso % (Auto) 0.9 Neut # (Auto) 4.9 Lymph # (Auto) 3.0 Sierra # (Auto) 1.0 H Eos # (Auto) 0.4 Baso # (Auto) 0.1 WBC Differential . Differential Comment Auto diff final Sodium Potassium Chloride Carbon Dioxide Anion Gap BUN Creatinine Estimated GFR POC Glucose 209 H 134 H Random Glucose Calcium Magnesium 09/10/18 09/09/18 09/09/18 05:25 23:44 18:33 WBC RBC Hgb Hct MCV MCH MCHC RDW Plt Count MPV Neut % (Auto) Lymph % (Auto) Sierra % (Auto) Eos % (Auto) Baso % (Auto) Neut # (Auto) Lymph # (Auto) Sierra # (Auto) Eos # (Auto) Baso # (Auto) WBC Differential Differential Comment Sodium 141 Potassium 3.2 L Chloride 107 Carbon Dioxide 22.9 Anion Gap 11 BUN 5 L Creatinine 0.54 L Estimated GFR Greater than 89 POC Glucose 183 H 134 H Random Glucose 151 H Calcium 8.4 L D Magnesium 1.6 D 09/09/18 16:52 WBC RBC Hgb Hct MCV MCH MCHC RDW Plt Count MPV Neut % (Auto) Lymph % (Auto) Sierra % (Auto) Eos % (Auto) Baso % (Auto) Neut # (Auto) Lymph # (Auto) Sierra # (Auto) Eos # (Auto) Baso # (Auto) WBC Differential Differential Comment Sodium Potassium Chloride Carbon Dioxide Anion Gap BUN Creatinine Estimated GFR POC Glucose 172 H Random Glucose Calcium Magnesium - Impressions ITS Impressions Abdomen/Pelvis CT 09/06/18 16:19 CONCLUSION: 1. Overall no significant change compared with August 17. 2. Acute pancreatitis similar in appearance to August 17. 3. Severe hepatic steatosis. 4. Bowel containing ventral hernias without evidence for obstruction. 5. Stable left adrenal nodule and small renal cysts. Previous splenectomy. Chest X-Ray 09/07/18 11:41 CONCLUSION: No acute cardiopulmonary disease. Discharge Plan - Discharge Disposition Patient Disposition: 01 Discharge Home - Discharge Condition Condition: Good - Discharge Order Discharge Orders: Discharge Order (Routine); Ordered 09/10/18 Ordered By: Eldon Trinidad - Physicians Team Primary Care Provider: [facility] Attending Provider: Eldon Trinidad Other Providers: Hugo Reynoso MD
[2018-09-10] MEDS ORDERED: Magnesium Sulfate Inj 2 GM in Sodium Chlor 0.9% Inj 96 ML IV.SIG ONE (17:00)
== END 2018-09-10 16:39 | disposition home or self-care (01) ==
LOC: NEPD 14:44 → NEDA 19:31 → HIMC 22:05 → N04 09-09 12:18
PROVIDERS: ADMIT Hospitalist; ATTEND Hospitalist